=== PATIENT | female | born 1980 | race Caucasian/White ===

== ENCOUNTER 2016-09-11 14:41 | Emergency (ER) | payer OTHER ==
[2016-09-11 14:54] VITALS: BP 162/83; PULSE 79; O2SAT 99
[2016-09-11] MEDS ORDERED: Sodium Chloride 0.9% 1000 ML 1,000 ML IV STA (14:59)
[2016-09-11] MEDS ORDERED: Phenergan 25 MG INJ IV ONE (14:59)
--- NOTE | 2016-09-11 15:03 | ERPHSYRPT ---
- History of Present Illness Time Seen by Provider: 09/11/16 14:55 Historian: patient Exam Limitations: no limitations Patient Subjective Stated Complaint: upper abd pain started last night. today has vomited four times and states there is blood in it. hx gb problems Triage Nursing Assessment: ambulated to room per self. skin w/d, pale. resp easy. holding mid abd. abd soft, tender. normal bowel sounds. Physician History: 36-year-old white female arrives with complaint of epigastric pain symptoms since last night positive vomiting no diarrhea. Past medical history includes anxiety. Past surgical history includes tubal ligation. Social history patient is a smoker has a history of illicit substance abuse in the past, Timing/Duration: yesterday Activities at Onset: none Quality: cramping Abdominal Pain Onset Location: epigastric Pain Radiation: back Severity of Pain-Max: moderate Severity of Pain-Current: moderate Modifying Factors: Improves With: nothing Associated Symptoms: back (pain radiates to her back) Previous symptoms: no prior history Allergies/Adverse Reactions: No Known Drug Allergies Allergy (Verified 09/11/16 14:54) Hx Tetanus, Diphtheria Vaccination/Date Given: Yes Hx Influenza Vaccination/Date Given: No Hx Pneumococcal Vaccination/Date Given: No - Review of Systems Constitutional: No Fever, No Chills Eyes: No Symptoms Ears, Nose, & Throat: No Symptoms Respiratory: No Cough, No Dyspnea Cardiac: No Chest Pain, No Edema, No Syncope Abdominal/Gastrointestinal: Abdominal Pain, Nausea, Vomiting, Hematemesis, No Diarrhea, No Constipation, No Hematochezia, No Melena, No Dysphagia, No Appetite Changes Genitourinary Symptoms: No Dysuria Musculoskeletal: No Back Pain, No Neck Pain Skin: No Rash Neurological: No Dizziness, No Focal Weakness, No Sensory Changes Psychological: No Symptoms Endocrine: No Symptoms All Other Systems: Reviewed and Negative - Past Medical History Pertinent Past Medical History: Yes Neurological History: No Pertinent History ENT History: No Pertinent History Cardiac History: No Pertinent History Respiratory History: No Pertinent History Endocrine Medical History: No Pertinent History Musculoskeletal History: No Pertinent History GI Medical History: No Pertinent History History: No Pertinent History Psycho-Social History: Anxiety - Past Surgical History Past Surgical History: Yes Female Surgical History: Tubal Ligation - Social History Smoking Status: Current every day smoker How long have you smoked: 21 Exposure to second hand smoke: No Drug Use: none Patient Lives Alone: No - Female History Hx Last Menstrual Period: one week ago Hx Now: No - Nursing Vital Signs Nursing Vital Signs: Initial Vital Signs Temperature 97.5 F Temperature Source Oral Pulse Rate 79 Respiratory Rate 16 Blood Pressure [Right Arm] 162/83 Pain Intensity 8 - Physical Exam General Appearance: mild distress Eye Exam: PERRL/EOMI, eyes nml inspection Ears, Nose, Throat Exam: normal ENT inspection, pharynx normal, moist mucous membranes Neck Exam: normal inspection, non-tender, supple, full range of motion Respiratory Exam: normal breath sounds, lungs clear, No respiratory distress Cardiovascular Exam: regular rate/rhythm, normal heart sounds Gastrointestinal/Abdomen Exam: soft, normal bowel sounds, tenderness ( epigastric tenderness), No distention, No mass, No guarding, No ecchymosis, No pulsatile mass, No rebound, No hernia, No hepatomegaly, No organomegaly, No splenomegaly, No bruit Back Exam: normal inspection, normal range of motion, No CVA tenderness, No vertebral tenderness Extremity Exam: normal inspection, normal range of motion, pelvis stable Neurologic Exam: alert, oriented x 3, cooperative, normal mood/affect, nml cerebellar function, sensation nml, No motor deficits Skin Exam: normal color, warm, dry SpO2 Interpretation: normal (99%) SpO2: 99 Oxygen Delivery: Room Air Ordered Tests: Active Orders 24 hr Category Date Time Status IV Insertion STAT Care 09/11/16 14:59 Active AMYLASE Stat Lab 09/11/16 15:47 Completed CBC W DIFF Stat Lab 09/11/16 15:47 Completed CMP Stat Lab 09/11/16 15:47 Completed HCG QUALITATIVE,SERUM Stat Lab 09/11/16 15:47 Completed LIPASE Stat Lab 09/11/16 15:47 Completed UA W/ MICROSCOPIC Stat Lab 09/11/16 16:15 Completed Medication Summary Discontinued Medications Generic Name Dose Route Start Last Admin Trade Name Freq PRN Reason Stop Dose Admin Sodium Chloride 1,000 mls @ 999 mls/hr 09/11/16 14:59 09/11/16 15:25 Sodium Chloride 0.9% 1000 Ml IV 09/11/16 15:59 999 mls/hr .Q1H1M STA Administration Sodium Chloride Confirm 09/11/16 15:26 Sodium Chloride 0.9% 1000 Ml Administered 09/11/16 15:27 Dose 1,000 mls @ ud .ROUTE .STK-MED ONE Ketorolac Tromethamine 30 mg 09/11/16 16:37 09/11/16 16:38 Toradol 30 Mg Injection IV 09/11/16 16:38 30 mg STAT ONE Administration Ketorolac Tromethamine Confirm 09/11/16 16:37 Toradol 30 Mg Injection Administered 09/11/16 16:38 Dose 30 mg .ROUTE .STK-MED ONE Pantoprazole Sodium 40 mg 09/11/16 16:27 09/11/16 16:32 Protonix 40 Mg Iv IV 09/11/16 16:28 40 mg STAT ONE Administration Pantoprazole Sodium Confirm 09/11/16 16:30 Protonix 40 Mg Iv Administered 09/11/16 16:31 Dose 40 mg IV .STK-MED ONE Promethazine HCl 12.5 mg 09/11/16 14:59 09/11/16 15:31 Phenergan 25 Mg Inj IV 09/11/16 15:00 12.5 mg STAT ONE Administration Promethazine HCl Confirm 09/11/16 15:25 Phenergan 25 Mg Inj Administered 09/11/16 15:26 Dose 25 mg .ROUTE .STK-MED ONE Lab/Rad Data: Laboratory Result Diagrams 09/11/16 15:47 09/11/16 15:47 Laboratory Results 09/11/16 09/11/16 09/11/16 Range/Units 16:15 15:47 15:47 WBC (4.0-10.5) K/mm3 RBC (4.1-5.4) M/mm3 Hgb (12.0-16.0) gm/dl Hct (35-47) % MCV (78-100) fl MCH (26-32) pg MCHC (32-36) g/dl RDW (11.5-14.0) % Plt Count (150-450) K/mm3 MPV (6-9.5) fl Gran % (36.0-66.0) % Lymphocytes % (24.0-44.0) % Monocytes % (0.0-12.0) % Eosinophils % (0.00-5.0) % Basophils % (0.0-0.4) % Basophils # (0-0.4) Sodium 144 (136-145) mEq/L Potassium 4.1 (3.5-5.1) mEq/L Chloride 107 (98-107) mEq/L Carbon Dioxide 24.8 (21-32) mEq/L Anion Gap 16.6 H (5-15) MEQ/L BUN 11 (9-20) mg/dL Creatinine 0.73 (0.55-1.30) mg/dl Estimated GFR > 60 ML/MIN Glucose 90 (70-110) MG/DL Calcium 8.7 (8.5-10.1) mg/dL Total Bilirubin 0.3 (0.2-1.0) mg/dL AST 79 H (15-37) U/L ALT 146 H (12-78) U/L Alkaline Phosphatase 117 H (46-116) U/L Serum Total Protein 7.5 (6.4-8.2) gm/dL Albumin 3.3 L (3.4-5.0) g/dL Amylase 65 (25-115) U/L Lipase 76 (73-393) U/L Serum , Qual NEGATIVE (Negative) Ur Collection Type VOID Urine Color YELLOW (YELLOW) Urine Appearance CLEAR (CLEAR) Urine pH 7.5 (5-6) Ur Specific [place] 1.015 (1.005-1.025) Urine Protein NEGATIVE (Negative) Urine Glucose (UA) NEGATIVE (NEGATIVE) mg/dL Urine Ketones NEGATIVE (NEGATIVE) Urine Nitrite NEGATIVE (NEGATIVE) Urine Bilirubin NEGATIVE (NEGATIVE) Urine Urobilinogen 0.2 (0-1) mg/dL Urine WBC (Auto) TRACE (NEGATIVE) Urine RBC (Auto) NEGATIVE (0-5) Jordi/ul Urine Microscopic WBC 0-2 (0-5) /HPF Ur Epithelial Cells RARE (FEW) /HPF Urine Bacteria RARE (NEGATIVE) /HPF Specimen Received 09/11/16 1615 09/11/16 Range/Units 15:47 WBC 9.2 (4.0-10.5) K/mm3 RBC 4.32 (4.1-5.4) M/mm3 Hgb 11.1 L (12.0-16.0) gm/dl Hct 35.4 (35-47) % MCV 81.9 (78-100) fl MCH 25.6 L (26-32) pg MCHC 31.4 L (32-36) g/dl RDW 15.8 H (11.5-14.0) % Plt Count 291 (150-450) K/mm3 MPV 8.9 (6-9.5) fl Gran % 69.7 H (36.0-66.0) % Lymphocytes % 20.2 L (24.0-44.0) % Monocytes % 8.7 (0.0-12.0) % Eosinophils % 1.2 (0.00-5.0) % Basophils % 0.2 (0.0-0.4) % Basophils # 0.02 (0-0.4) Sodium (136-145) mEq/L Potassium (3.5-5.1) mEq/L Chloride (98-107) mEq/L Carbon Dioxide (21-32) mEq/L Anion Gap (5-15) MEQ/L BUN (9-20) mg/dL Creatinine (0.55-1.30) mg/dl Estimated GFR ML/MIN Glucose (70-110) MG/DL Calcium (8.5-10.1) mg/dL Total Bilirubin (0.2-1.0) mg/dL AST (15-37) U/L ALT (12-78) U/L Alkaline Phosphatase (46-116) U/L Serum Total Protein (6.4-8.2) gm/dL Albumin (3.4-5.0) g/dL Amylase (25-115) U/L Lipase (73-393) U/L Serum , Qual (Negative) Ur Collection Type Urine Color (YELLOW) Urine Appearance (CLEAR) Urine pH (5-6) Ur Specific [place] (1.005-1.025) Urine Protein (Negative) Urine Glucose (UA) (NEGATIVE) mg/dL Urine Ketones (NEGATIVE) Urine Nitrite (NEGATIVE) Urine Bilirubin (NEGATIVE) Urine Urobilinogen (0-1) mg/dL Urine WBC (Auto) (NEGATIVE) Urine RBC (Auto) (0-5) Jordi/ul Urine Microscopic WBC (0-5) /HPF Ur Epithelial Cells (FEW) /HPF Urine Bacteria (NEGATIVE) /HPF Specimen Received - Progress Progress: improved Progress Note: 09/11/16 16:28 Patient with mild elevation of liver enzymes. Other labs are essentially normal patient does not want Toradol nor does she want narcotic analgesia. I have given the patient IV normal saline as well as Phenergan. Will give patient Protonix Will plan to discharge patient. With prescription for Prilosec, Phenergan. Patient did have mild elevation of liver enzymes. . - Departure Time of Disposition: 16:53 Departure Disposition: Home Clinical Impression: Gastroenteritis, mild elevation of liver enzymes Abdominal pain Qualifiers: Abdominal location: epigastric Qualified Code(s): R10.13 - Epigastric pain Condition: Fair Critical Care Time: No Referrals: DOCTOR,NO FAMILY [Primary Care Provider] - Additional Instructions: Return home. Plenty of fluids, clear fluids only 24-48 hours if abdominal pain. Prilosec 20 mg orally daily 7 days. Tylenol every 4 hours as needed for pain. Phenergan 25 mg one orally every 4-6 hours as needed for pain or nausea. Follow-up with the intermediate doctor. Return for acute distress or for severe symptoms. Prescriptions: Omeprazole 20 MG [Prilosec 20 mg] 20 mg PO DAILY #7 capsule. Promethazine HCl 25 mg [Phenergan 25 mg] 25 mg PO Q4-6HPRN PRN #12 tablet PRN Reason: nausea and vomiting
[2016-09-11] MEDS ORDERED: Phenergan 25 MG INJ ONE (15:25)
[2016-09-11] MEDS ORDERED: Sodium Chloride 0.9% 1000 ML 1,000 ML ONE (15:26)
[2016-09-11 15:51] LABS: BASOPHIL % 0.2 % (0.0-0.4); Eosinophil % 1.2 % (0.00-5.0); Granulocytes % 69.7 % (36.0-66.0); Lymphocytes % 20.2 % (24.0-44.0); Mean Cell Volume 81.9 fl (78-100); Mean Platelet Volume 8.9 fl (6-9.5); Monocytes % 8.7 % (0.0-12.0); Platelet Count 291 K/mm3 (150-450); Red Blood Count 4.32 M/mm3 (4.1-5.4); Red Cell Distribution Width 15.8 % (11.5-14.0); White Blood Count 9.2 K/mm3 (4.0-10.5)
[2016-09-11 15:54] LABS: Mean Corpuscular Hemoglobin 25.6 pg (26-32)
[2016-09-11 16:11] LABS: ALBUMIN 3.3 g/dL (3.4-5.0); ALKALINE PHOSPHATASE 117 U/L (46-116); ANION GAP 16.6 MEQ/L (5-15); BILIRUBIN,TOTAL 0.3 mg/dL (0.2-1.0); BLOOD UREA NITROGEN 11 mg/dL (9-20); CHLORIDE 107 mEq/L (98-107); Carbon Dioxide 24.8 mEq/L (21-32); Glucose 90 MG/DL (70-110); LIPASE 76 U/L (73-393); Potassium 4.1 mEq/L (3.5-5.1); SGOT/AST 79 U/L (15-37); SGPT/ALT 146 U/L (12-78); SODIUM 144 mEq/L (136-145); Total Protein 7.5 gm/dL (6.4-8.2)
[2016-09-11] MEDS ORDERED: PROTONIX 40 MG IV IV ONE ×2 (16:27→16:30)
[2016-09-11 16:34] LABS: Collection Type VOID
[2016-09-11 16:35] LABS: Bacteria RARE /HPF (NEGATIVE); COMPLETE URINE MICROSCOPIC? YES; Epithelial Cells RARE /HPF (FEW); Ph 7.5 (5-6); WBC 0-2 /HPF (0-5)
[2016-09-11] MEDS ORDERED: TORAdol 30 mg Injection ONE (16:37)
[2016-09-11] MEDS ORDERED: TORAdol 30 mg Injection IV ONE (16:37)
== END 2016-09-11 17:41 | disposition home or self-care (01) ==
LOC: ED 14:41
DX: K52.9 Noninfective gastroenteritis and colitis, unspecified (principal); R74.8 Abnormal levels of other serum enzymes; R10.13 Epigastric pain
CPT/HCPCS: 36000; 36415; 80053; 81000; 82150; 83690; 84703; 85025; 96360; 96375; 99284; J1885; J2550

== ENCOUNTER 2016-11-21 19:21 | Emergency (ER) | payer OTHER ==
[2016-11-21] MEDS ORDERED: Sodium Chloride 0.9% 1000 ML 1,000 ML IV STA (19:36)
[2016-11-21 19:40] VITALS: BP 152/70; PULSE 100; O2SAT 98
--- NOTE | 2016-11-21 19:46 | ERPHSYRPT ---
- History of Present Illness Time Seen by Provider: 11/21/16 19:30 Source: patient Exam Limitations: clinical condition Physician History: PATIENT WITH HISTORY OF PSEUDOSEIZURES, AFTER DRINKNG ALCOHOL TODAY, FELL INTO HER DRIVEWAY, QUESTIONAL SEIZURES PER BYSTANDERS. PATIENT COMPLAINS OF HEADACHE , UNSURE OF LOSS OF CONSCIOUSNESS. DENIES NECK PAIN, NUMBNESS, TINGLING OR WEAKNESS IN EXTREMITIES. Occurred: just prior to arrival Reason for Fall: lost balance (AFTER DRINKING ALCOHOL) Injuries/Pain Location: head Loss of Consciousness: unsure Quality: aching Severity of Pain-Max: moderate Severity of Pain-Current: moderate Modifying Factors: Improves With: movement Associated Symptoms (Fall): other (HEADACHE) Allergies/Adverse Reactions: No Known Drug Allergies Allergy (Verified 11/21/16 19:56) Hx Tetanus, Diphtheria Vaccination/Date Given: Yes Hx Influenza Vaccination/Date Given: No Hx Pneumococcal Vaccination/Date Given: No - Review of Systems Constitutional: No Fever, No Chills Eyes: No Symptoms Ears, Nose, & Throat: No Symptoms Respiratory: No Symptoms, No Cough, No Dyspnea Cardiac: No Symptoms, No Chest Pain, No Edema, No Syncope Abdominal/Gastrointestinal: No Symptoms, No Abdominal Pain, No Nausea, No Vomiting, No Diarrhea Genitourinary Symptoms: No Symptoms, No Dysuria Musculoskeletal: No Symptoms, No Back Pain, No Neck Pain Skin: No Rash Neurological: Headache, No Dizziness, No Focal Weakness, No Sensory Changes Psychological: No Symptoms Endocrine: No Symptoms All Other Systems: Reviewed and Negative - Past Medical History Pertinent Past Medical History: Yes Neurological History: No Pertinent History ENT History: No Pertinent History Cardiac History: No Pertinent History Respiratory History: No Pertinent History Endocrine Medical History: No Pertinent History Musculoskeletal History: No Pertinent History GI Medical History: No Pertinent History History: No Pertinent History Psycho-Social History: Anxiety - Past Surgical History Past Surgical History: Yes Female Surgical History: Tubal Ligation - Social History Smoking Status: Current every day smoker How long have you smoked: 21 Exposure to second hand smoke: No Drug Use: none Patient Lives Alone: No - Female History Hx Now: No - Nursing Vital Signs Nursing Vital Signs: Initial Vital Signs Temperature 98 F Temperature Source Oral Pulse Rate 100 Respiratory Rate 20 Blood Pressure [] 152/70 Pain Intensity 2 - Shanna Coma Score Best Eye Response (Shanna): (4) open spontaneously Best Verbal Response ([place]): (5) oriented Best Motor Response ([place]): (6) obeys commands [place] Total: 15 - Physical Exam General Appearance: no apparent distress, other (STRONG ODOR OF ALCOHOL ) Eye Exam: PERRL/EOMI ENT Exam: airway nml Neck Exam: mid-line tenderness (A RIGID CERVICAL COLLAR APPLIED UPON ARRIVAL TO EMERGENCY) Respiratory/Chest Exam: normal breath sounds, No chest tenderness, No respiratory distress Cardiovascular Exam: normal heart sounds, regular rate/rhythm Gastrointestinal Exam: soft, No tenderness, No distention, No guarding, No ecchymosis Back Exam: normal inspection, normal range of motion, No vertebral tenderness Peripheral Pulses: carotid (R): 2+, carotid (L): 2+, femoral (R): 2+, femoral (L ): 2+, dorsalis-pedis (R): 2+, dorsalis-pedis (L): 2+ Neurologic Exam: alert, oriented x 3 Skin Exam: normal color SpO2 Interpretation: normal SpO2: 98 Oxygen Delivery: Room Air - CT Exams Head CT Interpretation: Tele-radiologist Report, No/Intracranial Hemorrhag Cervical Spine CT Interpretation: Tele-radiologist Report, No Fracture, No Subluxation Ordered Tests: Active Orders 24 hr Category Date Time Status EKG-ER Only STAT Care 11/21/16 19:39 Active CERVICAL SPINE WO CONTRAST [CT] Stat Exams 11/21/16 19:33 Taken HEAD WITHOUT CONTRAST [CT] Stat Exams 11/21/16 19:33 Taken CBC W DIFF Stat Lab 11/21/16 20:30 Completed CMP Stat Lab 11/21/16 20:30 Completed Ethyl Alcohol,Urine Stat Lab 11/21/16 19:55 Completed Manual Differential NC Stat Lab 11/21/16 20:30 Completed UA W/RFX UR CULTURE Stat Lab 11/21/16 19:55 Completed Urine Triage Profile Stat Lab 11/21/16 19:55 Completed Medication Summary Generic Name Dose Route Start Last Admin Trade Name Freq PRN Reason Stop Dose Admin Sodium Chloride 1,000 mls @ 500 mls/hr 11/21/16 19:36 11/21/16 19:54 Sodium Chloride 0.9% 1000 Ml IV 11/21/16 21:35 500 mls/hr .Q2H STA Administration Discontinued Medications Generic Name Dose Route Start Last Admin Trade Name Freq PRN Reason Stop Dose Admin Sodium Chloride Confirm 11/21/16 19:51 Sodium Chloride 0.9% 1000 Ml Administered 11/21/16 19:52 Dose 1,000 mls @ .ROUTE [facility] ONE Lab/Rad Data: Laboratory Result Diagrams 11/21/16 20:30 11/21/16 20:30 Laboratory Results 11/21/16 11/21/16 11/21/16 Range/Units 20:30 20:30 19:55 WBC 9.2 (4.0-10.5) K/mm3 RBC 4.28 (4.1-5.4) M/mm3 Hgb 10.8 L (12.0-16.0) gm/dl Hct 35.0 (35-47) % MCV 81.8 (78-100) fl MCH 25.2 L (26-32) pg MCHC 30.9 L (32-36) g/dl RDW 17.6 H (11.5-14.0) % Plt Count 327 (150-450) K/mm3 MPV 9.5 (6-9.5) fl Sodium 146 H (136-145) mEq/L Potassium 3.5 (3.5-5.1) mEq/L Chloride 111 H (98-107) mEq/L Carbon Dioxide 22.1 (21-32) mEq/L Anion Gap 16.0 H (5-15) MEQ/L BUN 14 (9-20) mg/dL Creatinine 0.81 (0.55-1.30) mg/dl Estimated GFR > 60 ML/MIN Glucose 116 H (70-110) MG/DL Calcium 8.4 L (8.5-10.1) mg/dL Total Bilirubin 0.30 (0.2-1.0) mg/dL AST 60 H (15-37) U/L ALT 96 H (12-78) U/L Alkaline Phosphatase 113 (46-116) U/L Serum Total Protein 7.4 (6.4-8.2) gm/dL Albumin 3.2 L (3.4-5.0) g/dL Ur Collection Type Urine Color (YELLOW) Urine Appearance (CLEAR) Urine pH 6.5 (5-6) Ur Specific [place] (1.005-1.025) Urine Protein (Negative) Urine Glucose (UA) (NEGATIVE) mg/dL Urine Ketones (NEGATIVE) Urine Nitrite (NEGATIVE) Urine Bilirubin (NEGATIVE) Urine Urobilinogen (0-1) mg/dL Urine WBC (Auto) (NEGATIVE) Urine RBC (Auto) (0-5) Jordi/ul Urine Opiates Level (NEGATIVE) Ur Methadone (NEGATIVE) Urine Barbiturates (NEGATIVE) Ur Phencyclidine (PCP) (NEGATIVE) Urine Amphetamine (NEGATIVE) U Benzodiazepine Level (NEGATIVE) Urine Cocaine (NEGATIVE) Urine Marijuana (THC) (NEGATIVE) Urine Ethyl Alcohol 164 H (0.00-20) mg/dl Specimen Received 11/21/16 11/21/16 Range/Units 19:55 19:55 WBC (4.0-10.5) K/mm3 RBC (4.1-5.4) M/mm3 Hgb (12.0-16.0) gm/dl Hct (35-47) % MCV (78-100) fl MCH (26-32) pg MCHC (32-36) g/dl RDW (11.5-14.0) % Plt Count (150-450) K/mm3 MPV (6-9.5) fl Sodium (136-145) mEq/L Potassium (3.5-5.1) mEq/L Chloride (98-107) mEq/L Carbon Dioxide (21-32) mEq/L Anion Gap (5-15) MEQ/L BUN (9-20) mg/dL Creatinine (0.55-1.30) mg/dl Estimated GFR ML/MIN Glucose (70-110) MG/DL Calcium (8.5-10.1) mg/dL Total Bilirubin (0.2-1.0) mg/dL AST (15-37) U/L ALT (12-78) U/L Alkaline Phosphatase (46-116) U/L Serum Total Protein (6.4-8.2) gm/dL Albumin (3.4-5.0) g/dL Ur Collection Type CLEAN CATCH Urine Color YELLOW (YELLOW) Urine Appearance CLEAR (CLEAR) Urine pH 6.5 (5-6) Ur Specific [place] 1.010 (1.005-1.025) Urine Protein NEGATIVE (Negative) Urine Glucose (UA) NEGATIVE (NEGATIVE) mg/dL Urine Ketones NEGATIVE (NEGATIVE) Urine Nitrite NEGATIVE (NEGATIVE) Urine Bilirubin NEGATIVE (NEGATIVE) Urine Urobilinogen 0.2 (0-1) mg/dL Urine WBC (Auto) NEGATIVE (NEGATIVE) Urine RBC (Auto) NEGATIVE (0-5) Jordi/ul Urine Opiates Level NEG. (NEGATIVE) Ur Methadone NEG. (NEGATIVE) Urine Barbiturates NEG. (NEGATIVE) Ur Phencyclidine (PCP) NEG. (NEGATIVE) Urine Amphetamine NEG. (NEGATIVE) U Benzodiazepine Level NEG. (NEGATIVE) Urine Cocaine NEG. (NEGATIVE) Urine Marijuana (THC) NEG. (NEGATIVE) Urine Ethyl Alcohol (0.00-20) mg/dl Specimen Received 11/21/161999 - Progress Counseled pt/family regarding: diagnosis, need for follow-up, rad results - Departure Time of Disposition: 21:10 Departure Disposition: Home Clinical Impression: SCALP CONTUSION, ACUTE CERVICAL STRAIN, ACUTE ALCOHOL INTOXICATION Condition: Stable Critical Care Time: No Referrals: DOCTOR,NO FAMILY [Primary Care Provider] - Additional Instructions: ULTRAM 50MG EVERY 4-6 HOURS NEEDED FOR PAIN. FOLLOW HEAD INJURY INSTRUCTIONS FOR 24 HOURS. Prescriptions: Tramadol HCl 50 mg [Ultram 50 mg] 50 mg PO Q4-6HPRN PRN #15 tablet PRN Reason: Pain
[2016-11-21] MEDS ORDERED: Sodium Chloride 0.9% 1000 ML 1,000 ML ONE (19:51)
[2016-11-21 20:32] LABS: ADD URINE CULTURE? NO (NO); COMPLETE URINE MICROSCOPIC? NO; Collection Type CLEAN CATCH; Ph 6.5 (5-6)
[2016-11-21 20:34] LABS: Mean Cell Volume 81.8 fl (78-100); Mean Corpuscular Hemoglobin 25.2 pg (26-32); Mean Platelet Volume 9.5 fl (6-9.5); Platelet Count 327 K/mm3 (150-450); Red Blood Count 4.28 M/mm3 (4.1-5.4); Red Cell Distribution Width 17.6 % (11.5-14.0); White Blood Count 9.2 K/mm3 (4.0-10.5)
[2016-11-21 20:56] LABS: ALBUMIN 3.2 g/dL (3.4-5.0); ALKALINE PHOSPHATASE 113 U/L (46-116); BLOOD UREA NITROGEN 14 mg/dL (9-20); CHLORIDE 111 mEq/L (98-107); Carbon Dioxide 22.1 mEq/L (21-32); Glucose 116 MG/DL (70-110); Potassium 3.5 mEq/L (3.5-5.1); SGOT/AST 60 U/L (15-37); SGPT/ALT 96 U/L (12-78); SODIUM 146 mEq/L (136-145); Total Protein 7.4 gm/dL (6.4-8.2)
[2016-11-21 21:33] LABS: Basophil 1 % (0.0-1.0); Eosinophil 3 % (0.00-3.0); Platelet Estimate NORMAL (NORMAL); Total Cells Counted 100
[2016-11-21 21:34] LABS: ANISOCYTOSIS 1+
--- NOTE | 2016-11-22 08:44 | XRAY ---
Indication: Headache. Syncope. Status post fall. Alcohol. Multiple contiguous axial images obtained through the head without contrast. Comparison: March 12, 2006. Normal-appearing brain parenchyma, ventricles, and bony calvarium. Visualized paranasal sinuses and mastoid air cells are essentially clear. Impression: No acute intracranial abnormalities. Comment: Preliminary interpretation was made by C. No discrepancy. CTDI 59.13
--- NOTE | 2016-11-22 08:50 | XRAY ---
Indication: Headache. Syncope. Status post fall. Alcohol. Multiple contiguous axial images obtained through the cervical spine. Sagittal and coronal reformatted images obtained. Comparison: None. Mild C2-C4 motion artifact. Axial images negative for acute fracture, suspicious bony lesions, or spinal canal stenosis. Minimal C5-C7 endplate spurring. Sagittal and coronal reformatted images demonstrate lordotic straightening, positional versus paraspinal spasm. Minimal C6-C7 disc space narrowing. No acute compression fracture, subluxation, or jumped facet. Normal-appearing craniocervical junction. Visualized noncontrasted soft tissues demonstrates heterogeneous enlarged left thyroid gland with hypodense cysts versus nodules, largest measuring 1.5 cm. Lung apices clear. CT head reported separately. Impression: 1. Motion artifact. 2. Negative acute fracture/subluxation. 3. Lordotic straightening, positional versus paraspinal spasm. 4. C5-C7 degenerative changes. 5. Heterogeneous enlarged left thyroid gland with cysts/nodules better evaluated with thyroid ultrasound if clinically warranted. Comment: Preliminary interpretation was made by [facility]. Degenerative changes and left thyroid findings not reported and are not critical. CTDI 96.78
== END 2016-11-21 21:26 | disposition home or self-care (01) ==
LOC: ED 19:21
DX: S00.03XA Contusion of scalp, initial encounter (principal); S16.1XXA Strain of muscle, fascia and tendon at neck level, initial encounter; F10.129 Alcohol abuse with intoxication, unspecified
CPT/HCPCS: 36415; 70450; 72125; 80053; 80307; 80320; 81002; 83986; 85025; 93005; 96360; 96361; 99284; 99285

== ENCOUNTER 2016-12-28 12:35 | Emergency (ER) | payer OTHER ==
--- NOTE | 2016-12-28 13:07 | ERPHSYRPT ---
- History of Present Illness Time Seen by Provider: 12/28/16 13:00 Source: patient Exam Limitations: no limitations Patient Subjective Stated Complaint: PT REPORTS JUMPING LAST NIGHT-PAIN BEGAN IN LEFT HEEL-WORSENING WITH TIME-DENIES NUMBNES SOR TINLGING Triage Nursing Assessment: PT PINK WARM ET [id number] OBIVOUS DEFORMITY NOTED- PT AMBULATORY TO ED ROOM Physician History: The patient is a 36-year-old female who complains of jumping off a swing last night, hurting her left foot. She took Tylenol last night but no analgesics today. It hurts to walk on it. The pain is more in her mid foot and then traveling up the back of her foot up the back of her leg. She states she had an injury to her left fore foot several years ago but doesn't know what it was. Method of Injury: fell, sports injury Occurred: yesterday Quality: throbbing Severity of Pain-Max: moderate Severity of Pain-Current: moderate Lower Extremities Pain: foot: left, ankle: left Modifying Factors: Improves With: pain medication (tylenol) Associated Symptoms: none Allergies/Adverse Reactions: tramadol Adverse Reaction (Unknown, Verified 12/28/16 12:43) "I DON'T LIKE IT" Home Medications: No Home Meds 1 [facility] UD 12/28/16 [History] Hx Tetanus, Diphtheria Vaccination/Date Given: Yes Hx Influenza Vaccination/Date Given: Yes (2015) Hx Pneumococcal Vaccination/Date Given: No Immunizations Up to Date: Yes - Review of Systems Constitutional: No Fever, No Chills Eyes: No Symptoms Ears, Nose, & Throat: No Symptoms Respiratory: No Cough, No Dyspnea Cardiac: No Chest Pain, No Edema, No Syncope Abdominal/Gastrointestinal: No Abdominal Pain, No Nausea, No Vomiting, No Diarrhea Genitourinary Symptoms: No Dysuria Musculoskeletal: Fall, Injury, No Back Pain, No Neck Pain Skin: No Rash Neurological: No Dizziness, No Focal Weakness, No Sensory Changes Psychological: No Symptoms Endocrine: No Symptoms Hematologic/Lymphatic: No Symptoms Immunological/Allergic: No Symptoms All Other Systems: Reviewed and Negative - Past Medical History Pertinent Past Medical History: Yes Neurological History: No Pertinent History ENT History: No Pertinent History Cardiac History: No Pertinent History Respiratory History: No Pertinent History Endocrine Medical History: No Pertinent History Musculoskeletal History: No Pertinent History GI Medical History: No Pertinent History History: No Pertinent History Psycho-Social History: Anxiety - Past Surgical History Past Surgical History: Yes Female Surgical History: Tubal Ligation - Social History Smoking Status: Current every day smoker How long have you smoked: 21 Exposure to second hand smoke: No Drug Use: none Patient Lives Alone: No - Female History Hx Last Menstrual Period: CURRENTLY Hx Now: No - Nursing Vital Signs Nursing Vital Signs: Initial Vital Signs Temperature 98.4 F Temperature Source Oral Pulse Rate 100 Respiratory Rate 18 Blood Pressure [] 119/84 Pain Intensity 10 - Physical Exam General Appearance: mild distress Eyes, Ears, Nose, Throat Exam: moist mucous membranes Neck Exam: non-tender, supple Cardiovascular/Respiratory Exam: chest non-tender, normal breath sounds, regular rate/rhythm, no respiratory distress Gastrointestinal/Abdominal Exam: non-tender, guarding Back Exam: normal inspection, No vertebral tenderness Hips Exam: bilateral: non-tender Legs Exam: bilateral leg: soft tissue tenderness (left lower leg) Knees Exam: bilateral knee: non-tender Ankle Exam: left ankle: ecchymosis, soft tissue tenderness Foot Exam: left foot: ecchymosis, soft tissue tenderness Neuro/Tendon Exam: normal sensation, normal motor functions Mental Status Exam: alert, oriented x 3, cooperative Skin Exam: ecchymosis SpO2 Interpretation: normal SpO2: 96 Oxygen Delivery: Room Air - Radiology Exams Left Lower Leg X-ray Interpretation: Interpreted by me, Negative Left Ankle X-ray Interpretation: Interpreted by me, Negative (ankle bracelet seen) Left Foot X-ray Interpretation: Interpreted by me, Negative Ordered Tests: Active Orders 24 hr Category Date Time Status Cold Application STAT Care 12/28/16 13:09 Active ANKLE (3 VIEWS) Stat Exams 12/28/16 13:09 Taken FOOT (MINIMUM 3 VIEWS) Stat Exams 12/28/16 13:10 Taken LOWER LEG Stat Exams 12/28/16 13:10 Taken Medication Summary Discontinued Medications Generic Name Dose Route Start Last Admin Trade Name Bert PRN Reason Stop Dose Admin Ketorolac Tromethamine 60 mg 12/28/16 13:09 12/28/16 13:19 Toradol 30 Mg Injection IM 12/28/16 13:10 60 mg STAT ONE Administration Ketorolac Tromethamine Confirm 12/28/16 13:15 Toradol 30 Mg Injection Administered 12/28/16 13:16 Dose 60 mg .ROUTE .STK-MED ONE - Progress Progress: improved Counseled pt/family regarding: rad results - Departure Time of Disposition: 14:30 Departure Disposition: Home Clinical Impression: Contusion of left foot Condition: Stable Critical Care Time: No Additional Instructions: You have a contusion of your left foot with surrounding bruising that is causing the pain. You were given Toradol 60 mg IM in the ER. Continue to ice the area for 10-15 minutes at a time for 2 or 3 times a day for the next 2 or 3 days. Take naproxen 500 mg twice a day as needed. Follow-up on Friday if the condition has not improved. Prescriptions: Naproxen 500 mg PO BID PRN #30 tablet.
[2016-12-28] MEDS ORDERED: TORAdol 30 mg Injection IM ONE (13:09)
[2016-12-28] MEDS ORDERED: TORAdol 30 mg Injection ONE (13:15)
[2016-12-28 14:38] VITALS: BP 121/54; PULSE 93; O2SAT 99
--- NOTE | 2016-12-28 21:51 | XRAY ---
Indication: Pain following jumping injury. Comparison: None 2 views of the left lower leg obtained. No bony, articular, or soft tissue abnormalities.
--- NOTE | 2016-12-28 21:51 | XRAY ---
Indication: Pain following jumping injury. Comparison: None 3 views of the left ankle demonstrates normal bones, articulations, and soft tissues.
--- NOTE | 2016-12-28 21:51 | XRAY ---
Indication: Pain following jumping injury. Comparison: None 3 nonweightbearing views of the left foot obtained. No bony, articular, or soft tissue abnormalities.
== END 2016-12-28 14:38 | disposition home or self-care (01) ==
LOC: ED 12:35
DX: S90.32XA Contusion of left foot, initial encounter (principal); W09.1XXA Fall from playground swing, initial encounter
CPT/HCPCS: 73590; 73610; 73630; 96372; 99284; J1885

== ENCOUNTER 2018-01-10 14:16 | Emergency (ER) | payer OTHER ==
[2018-01-10 14:23] VITALS: BP 118/67; PULSE 88; O2SAT 99
--- NOTE | 2018-01-10 14:30 | ERPHSYRPT ---
- History of Present Illness Time Seen by Provider: 01/10/18 14:25 Source: patient Exam Limitations: no limitations Physician History: The patient is a 37-year-old female complaining of a sore throat that has been worsening over the past 3 days. She denies nausea, vomiting, or diarrhea. She denies cough. She thinks she may have had an on and off fever. Timing/Duration: gradual onset, days (3) Severity: moderate ENT Location: throat Prearrival Treatment: over the counter meds (tylenol) Modifying Factors: Improves With: activity Associated Symptoms: sore throat, difficulty swallowing Allergies/Adverse Reactions: tramadol Adverse Reaction (Unknown, Verified 12/28/16 12:43) "I DON'T LIKE IT" Home Medications: No Home Meds [No Home Meds] 1 [facility] ANA 12/28/16 [History] Hx Tetanus, Diphtheria Vaccination/Date Given: Yes Hx Influenza Vaccination/Date Given: Yes (2015) Hx Pneumococcal Vaccination/Date Given: No - Review of Systems Constitutional: No Fever, No Chills Eyes: No Symptoms Ears, Nose, & Throat: Throat Pain, Painful Swallowing Respiratory: No Cough, No Dyspnea Cardiac: No Chest Pain, No Edema, No Syncope Abdominal/Gastrointestinal: No Abdominal Pain, No Nausea, No Vomiting, No Diarrhea Genitourinary Symptoms: No Dysuria Musculoskeletal: No Back Pain, No Neck Pain Skin: No Rash Neurological: No Dizziness, No Focal Weakness, No Sensory Changes Psychological: No Symptoms Endocrine: No Symptoms Hematologic/Lymphatic: No Symptoms Immunological/Allergic: No Symptoms All Other Systems: Reviewed and Negative - Past Medical History Pertinent Past Medical History: Yes Neurological History: No Pertinent History ENT History: No Pertinent History Cardiac History: No Pertinent History Respiratory History: No Pertinent History Endocrine Medical History: No Pertinent History Musculoskeletal History: No Pertinent History GI Medical History: No Pertinent History History: No Pertinent History Psycho-Social History: Anxiety - Past Surgical History Past Surgical History: Yes Female Surgical History: Tubal Ligation - Social History Smoking Status: Current every day smoker How long have you smoked: 21 Exposure to second hand smoke: No Drug Use: none Patient Lives Alone: No - Nursing Vital Signs Nursing Vital Signs: Initial Vital Signs Temperature 98.6 F 01/10/18 14:22 Pulse Rate 88 01/10/18 14:22 Respiratory Rate 18 01/10/18 14:22 Blood Pressure 118/67 01/10/18 14:22 O2 Sat by Pulse Oximetry 99 01/10/18 14:22 Pain Scale Pain Intensity 7 - Physical Exam General Appearance: no apparent distress, alert Eye Exam: bilateral eye: PERRL, EOMI Ear Exam: bilateral ear: auricle normal Nasal Exam: normal inspection Throat Exam: tonsillar swelling Neck Exam: supple Cardiovascular/Respiratory Exam: normal breath sounds, regular rate/rhythm Abdominal Exam: non-tender, soft Neurologic Exam: alert, oriented x 3, sensation nml, No motor deficits Skin Exam: normal color, warm, dry SpO2 Interpretation: normal SpO2: 99 Oxygen Delivery: Room Air Lab/Rad Data: Laboratory Results 01/10/18 Range/Units 14:30 Group A Strep Antibody NEGATIVE (NEGATIVE) - Progress Progress: unchanged Counseled pt/family regarding: lab results, diagnosis - Departure Time of Disposition: 15:17 Departure Disposition: Home Clinical Impression: Pharyngitis Condition: Stable Critical Care Time: No Referrals: DOCTOR,NO FAMILY [Primary Care Provider] - Additional Instructions: You have pharyngitis. You were given Toradol 60 mg by IM in the ER for pain relief. Continue to take Tylenol 1000 mg and ibuprofen 800 mg every 8 hours as needed. You may also gargle with warm salt water as needed. Follow-up as needed.
[2018-01-10] MEDS ORDERED: TORAdol 30 mg Injection IM ONE (15:19)
[2018-01-10] MEDS ORDERED: TORAdol 30 mg Injection ONE (15:26)
== END 2018-01-10 15:40 | disposition home or self-care (01) ==
LOC: ED 14:16
DX: J02.9 Acute pharyngitis, unspecified (principal)
CPT/HCPCS: 87651; 96372; 99284; J1885

== ENCOUNTER 2019-09-11 15:29 | Emergency (ER) | payer OTHER ==
[2019-09-11] MEDS ORDERED: Sodium Chloride 0.9% 1000 ML 1,000 ML IV STA (16:07)
[2019-09-11] MEDS ORDERED: Zofran 4 MG/2 ML VIAL IV ONE (16:07)
[2019-09-11] MEDS ORDERED: BABY ASPIRIN 81 MG CHEW PO ONE (16:09)
[2019-09-11] MEDS ORDERED: Nitrostat 0.4 MG (ED) SL ONE ×2 (16:09→16:16)
--- NOTE | 2019-09-11 16:11 | ERPHSYRPT ---
- History of Present Illness Time Seen by Provider: 09/11/19 15:57 Historian: patient Exam Limitations: no limitations Patient Subjective Stated Complaint: Pt began having sudden onset medial chest pain that radiates to her left shoulder, neck and back approx 1 hour ago, dry heaved prior to coming to the ER Triage Nursing Assessment: Pt brought to the ER by her boyfriend, rates chest pain 10/10, has had the flu since Friday, vitals wnl, lungs clear, heart sounds normal, no edema, bowel sounds heard in all 4 quadrants, hasn't ate for 2 days except a couple of crackers yesterday, thinks that she has been drinking enough fluids Physician History: Five days ago pt vomited once without blood. Two days ago pt started with cough , subjective fever, diaphoresis, diarrhea without blood, generalized aches and chills. About 90 minutes ago pt started with severe epigastric pain radiating to the left chest, left shoulder and left side of mid-back. Pt states 5 days ago she was diagnosed with influenza. Aspirin Treatment Today: 81 mg x 4, provided by ED Allergies/Adverse Reactions: tramadol Adverse Reaction (Unknown, Verified 09/11/19 15:49) "I DON'T LIKE IT" Home Medications: No Home Meds [No Home Meds] [facility] 12/28/16 [History] Hx Tetanus, Diphtheria Vaccination/Date Given: Yes Hx Influenza Vaccination/Date Given: Yes (2015) Hx Pneumococcal Vaccination/Date Given: No - Review of Systems Constitutional: Fever, Chills, Other (diaphoresis) Respiratory: Cough Cardiac: Chest Pain Abdominal/Gastrointestinal: Abdominal Pain, Vomiting, Diarrhea Musculoskeletal: Arthralgias Skin: No Rash All Other Systems: Reviewed and Negative - Past Medical History Pertinent Past Medical History: Yes Neurological History: No Pertinent History ENT History: No Pertinent History Cardiac History: Arrhythmia Respiratory History: No Pertinent History Endocrine Medical History: No Pertinent History Musculoskeletal History: No Pertinent History GI Medical History: No Pertinent History History: No Pertinent History Psycho-Social History: Anxiety - Past Surgical History Past Surgical History: Yes Female Surgical History: Tubal Ligation - Social History Smoking Status: Current every day smoker How long have you smoked: 21 Exposure to second hand smoke: Yes Drug Use: none Patient Lives Alone: No - Female History Hx Now: No (tubal) - Nursing Vital Signs Nursing Vital Signs: Initial Vital Signs Temperature 98.2 F 09/11/19 15:37 Pulse Rate 82 09/11/19 15:37 Respiratory Rate 14 09/11/19 15:37 Blood Pressure 127/88 09/11/19 15:37 O2 Sat by Pulse Oximetry 97 09/11/19 15:37 Pain Scale Pain Intensity 5 - Physical Exam General Appearance: alert Eye Exam: PERRL/EOMI Ears, Nose, Throat Exam: pharynx normal, moist mucous membranes Neck Exam: normal inspection Respiratory Exam: lungs clear Cardiovascular Exam: normal heart sounds Gastrointestinal/Abdomen Exam: soft, No normal bowel sounds (b.s. mildly hyperactive & normotonic.) Back Exam: normal inspection Extremity Exam: No pedal edema Neurologic Exam: alert, cooperative SpO2 Interpretation: normal SpO2: 97 O2 Delivery: Room Air - Course Nursing assessment & vital signs reviewed: Yes EKG Interpreted by Me: RATE (78), Sinus Rhythm, NORMAL AXIS, NORMAL INTERVALS - Radiology Exams Chest X-ray Interpretation: Interpreted by me (no pneumonia) Ordered Tests: Active Orders 24 hr Category Date Time Status EKG-ER Only STAT Care 09/11/19 16:07 Active ABDOMEN AND PELVIS W/0 CONTRAS [CT] Stat Exams 09/11/19 16:08 Taken CHEST 2 VIEWS (PA AND LAT) Stat Exams 09/11/19 16:08 Taken HCG QUALITATIVE,SERUM Stat Lab 09/11/19 18:10 Completed TROPONIN Q3H Lab 09/11/19 17:30 Completed TROPONIN Q3H Lab 09/11/19 19:15 Ordered TROPONIN Q3H Lab 09/11/19 22:15 Ordered TROPONIN Q3H Lab 09/12/19 01:15 Ordered TROPONIN Q3H Lab 09/12/19 04:15 Ordered UA W/RFX UR CULTURE Stat Lab 09/11/19 19:58 Completed Urine Triage Profile Stat Lab 09/11/19 19:58 Received Medication Summary Discontinued Medications Generic Name Dose Route Start Last Admin Trade Name Freq PRN Reason Stop Dose Admin Aspirin 324 mg 09/11/19 16:09 09/11/19 16:12 Baby Aspirin 81 Mg Chew PO 09/11/19 16:10 324 mg STAT ONE Administration Aspirin Confirm 09/11/19 16:16 Baby Aspirin 81 Mg Chew Administered 09/11/19 16:17 Dose 324 mg .ROUTE .STK-MED ONE Sodium Chloride 1,000 mls @ 999 mls/hr 09/11/19 16:07 09/11/19 17:10 Sodium Chloride 0.9% 1000 Ml IV 09/11/19 17:07 Not Given .Q1H1M STA Sodium Chloride Confirm 09/11/19 16:16 Sodium Chloride 0.9% 1000 Ml Administered 09/11/19 16:17 Dose 1,000 mls @ ud .ROUTE .STK-MED ONE Nitroglycerin 0.4 mg 09/11/19 16:09 09/11/19 16:13 Nitrostat 0.4 Mg (Ed) SL 09/11/19 16:10 0.4 mg STAT ONE Administration Nitroglycerin Confirm 09/11/19 16:16 Nitrostat 0.4 Mg (Ed) Administered 09/11/19 16:17 Dose 0.4 mg SL .STK-MED ONE Ondansetron HCl 4 mg 09/11/19 16:07 09/11/19 17:09 Zofran 4 Mg/2 Ml Vial IV 09/11/19 16:08 Not Given STAT ONE Ondansetron HCl Confirm 09/11/19 16:15 Zofran 4 Mg/2 Ml Vial Administered 09/11/19 16:16 Dose 4 mg .ROUTE .STK-MED ONE Lab/Rad Data: Laboratory Results 09/11/19 09/11/19 09/11/19 Range/Units 19:58 18:10 17:30 Troponin I < 0.012 (0.000-0.034) ng/mL Serum , Qual NEGATIVE (Negative) Urine Color MARCK (YELLOW) Urine Appearance CLOUDY (CLEAR) Urine pH 5.0 (5-6) Ur Specific Ch[place]key 1.031 (1.005-1.025) Urine Protein 100 (Negative) Urine Ketones TRACE (NEGATIVE) Urine Blood SMALL (0-5) Jordi/ul Urine Nitrite NEGATIVE (NEGATIVE) Urine Bilirubin SMALL (NEGATIVE) Urine Urobilinogen 4 (0-1) mg/dL Ur Leukocyte Esterase NEGATIVE (NEGATIVE) Urine WBC (Auto) 6-10 (0-5) /HPF Urine RBC (Auto) 0-2 (0-2) /HPF U Epithel Cells (Auto) RARE (FEW) /HPF Urine Bacteria (Auto) RARE (NEGATIVE) /HPF Unidentified Crystals 25-50 (NEGATIVE) /HPF Urine Mucus (Auto) MANY (NEGATIVE) /HPF Urine Culture Reflexed NO (NO) Urine Glucose NEGATIVE (NEGATIVE) mg/dL - Progress Progress: unchanged Progress Note: 09/11/19 21:34 Pt refuses iv and any further blood draws. Counseled pt/family regarding: lab results, rad results - Departure Departure Disposition: Home Clinical Impression: Chest pain, Abdominal pain, Vomiting, Diarrhea, influenza(per pt hx). Condition: Stable Critical Care Time: No Referrals: DOCTOR,NO FAMILY [Primary Care Provider] - Instructions: Atypical Chest Pain, Diarrhea and Traveler's Diarrhea, Adult (DC) Additional Instructions: Follow up with private doctor tomorrow. Prescriptions: Ondansetron ODT 4 MG [Zofran Odt 4 mg] 4 mg PO Q6H PRN PRN #10 tab.rapdis PRN Reason: Nausea/Vomiting
[2019-09-11] MEDS ORDERED: Zofran 4 MG/2 ML VIAL ONE (16:15)
[2019-09-11] MEDS ORDERED: Sodium Chloride 0.9% 1000 ML 0 ML ONE (16:16)
[2019-09-11] MEDS ORDERED: BABY ASPIRIN 81 MG CHEW ONE (16:16)
[2019-09-11 21:05] LABS: Appearance CLOUDY (CLEAR); Bacteria RARE /HPF (NEGATIVE); Bilirubin SMALL (NEGATIVE); Blood SMALL Ery/ul (0-5); Crystals Unidentified 25-50 /HPF (NEGATIVE); Epithelial Cells RARE /HPF (FEW); Glucose NEGATIVE (NEGATIVE); Ketones TRACE (NEGATIVE); Leukocyte Esterase NEGATIVE (NEGATIVE); Mucus MANY /HPF (NEGATIVE); Nitrite NEGATIVE (NEGATIVE); Protein,Urine Dip 100 (Negative); RBC 0-2 /HPF (0-2); Specific Gravity 1.031 (1.005-1.025); Urobilinogen 4 mg/dL (0-1)
[2019-09-11 21:12] VITALS: BP 102/75; PULSE 74
[2019-09-11 21:35] VITALS: O2SAT 97
[2019-09-11 21:44] LABS: Amphetamine,Urine NEGATIVE (NEGATIVE); Barbiturate,Urine NEGATIVE (NEGATIVE); Benzodiazepine,Urine NEGATIVE (NEGATIVE); Cocaine,Urine NEGATIVE (NEGATIVE); Methadone,Urine NEGATIVE (NEGATIVE); Opiate,Urine NEGATIVE (NEGATIVE); PCP,Urine NEGATIVE (NEGATIVE); THC,Urine NEGATIVE (NEGATIVE)
--- NOTE | 2019-09-12 09:54 | XRAY ---
Indication: Chest/abdomen pain. Positive influenza. Comparison: March 13, 2006. PA/lateral chest demonstrates normal heart, lungs, and bony thorax with new incidental right base calcified granuloma.
--- NOTE | 2019-09-12 09:54 | XRAY ---
Indication: Chest/upper abdomen pain. Nausea. Multiple contiguous axial images obtained through the abdomen and pelvis without contrast as ordered. Comparison: None Lung bases demonstrates right posterior gutter calcified granuloma. No infiltrate or effusion. Heart is not enlarged. Small hiatal hernia. Noncontrasted stomach and bowel loops appear nonobstructed. Normal appendix. 1.8 cm gallstone in the neck of the gallbladder. No abnormal biliary distention. Tampon in situ. Remaining liver, gallbladder, pancreas, spleen, adrenal glands, kidneys, ureters, bladder, uterus, and aorta appear unremarkable for noncontrast exam. Osseous structures intact. No ventral or inguinal hernias. Impression: 1. Gallstone in the neck of the gallbladder. Gallbladder sonogram may yield further information. 2. Incidental small hiatal hernia and right lower lobe calcified granuloma. 3. Remaining CT abdomen/pelvis without contrast exam is negative. Comment: Preliminary interpretation was made by [facility]. No critical discrepancy.
== END 2019-09-11 22:17 | disposition home or self-care (01) ==
LOC: ED 15:29
DX: R07.9 Chest pain, unspecified (principal); R10.9 Unspecified abdominal pain; R11.10 Vomiting, unspecified; R19.7 Diarrhea, unspecified
CPT/HCPCS: 36415; 71046; 74176; 80307; 81001; 81025; 84484; 93005; 99284; J2405; A9270-GY

== ENCOUNTER 2019-11-27 16:05 | Emergency (ER) | payer OTHER ==
--- NOTE | 2019-11-27 16:06 | ERPHSYRPT ---
- History of Present Illness Time Seen by Provider: 11/27/19 16:06 Source: patient Exam Limitations: no limitations Physician History: Is a 39-year-old white female who has had chronic intermittent diarrhea since 1994. Patient states in the last few days she has had worsening episodes of her diarrhea. She has had more frequent in the last 3 days. She feels dehydrated as though she is going to pass out. Patient has had no nausea or vomiting. She has crampy abdominal pain. She is able to hold down Pedialyte and oral liquid intake. Patient arrives today but refuses any intravenous line , intravenous fluids, urinalysis for laboratory work. Patient states that she needs a note to return to work. Patient does not want any antiemetic medication. Patient states that she has dealt with this for a long time and she will get over this episode. However, she needs a note to return to work tomorrow. I explained to her that she would need to sign a refusal of treatment. I offered the above work-up and outpatient medications. She was told that she would need to sign a refusal of treatment and she said she would. Timing/Duration: day(s) (2 to 3 days) Severity: moderate Character of Deficits: none Deficits: no difficulties Baseline/Normal Cognition: alert oriented x 3 Current Cognition: alert oriented x 3 Baseline Gait: walks w/o assistance Associated Symptoms: weakness Allergies/Adverse Reactions: tramadol Adverse Reaction (Unknown, Verified 11/27/19 16:36) "I DON'T LIKE IT" Home Medications: No Home Meds [No Home Meds] [facility] 12/28/16 [History] Hx Tetanus, Diphtheria Vaccination/Date Given: Yes Hx Influenza Vaccination/Date Given: Yes (2015) Hx Pneumococcal Vaccination/Date Given: No Travel Risk - International Travel Have you traveled outside of the country in past 3 weeks: No Have you or anyone close to you been diagnosed with or: No Do your reside in a community with a known COVID-19 case?: Yes If Yes where:: [facility] - Coronavirus Screening Has patient experienced Coronavirus symptoms: No - Review of Systems Constitutional: Weakness Eyes: No Symptoms Ears, Nose, & Throat: No Symptoms Respiratory: No Symptoms Cardiac: No Symptoms Abdominal/Gastrointestinal: Diarrhea Genitourinary Symptoms: No Symptoms Musculoskeletal: No Symptoms Skin: No Symptoms Neurological: No Symptoms Psychological: No Symptoms Endocrine: No Symptoms Hematologic/Lymphatic: No Symptoms Immunological/Allergic: No Symptoms All Other Systems: Reviewed and Negative - Past Medical History Pertinent Past Medical History: Yes Neurological History: No Pertinent History ENT History: No Pertinent History Cardiac History: Arrhythmia Respiratory History: No Pertinent History Endocrine Medical History: No Pertinent History Musculoskeletal History: No Pertinent History GI Medical History: No Pertinent History History: No Pertinent History Psycho-Social History: Anxiety - Past Surgical History Past Surgical History: Yes Female Surgical History: Tubal Ligation - Social History Smoking Status: Current every day smoker How long have you smoked: 21 Exposure to second hand smoke: Yes Drug Use: none Patient Lives Alone: No - Nursing Vital Signs Nursing Vital Signs: Initial Vital Signs Temperature 97.2 F 11/27/19 16:22 Pulse Rate 101 H 11/27/19 16:22 Respiratory Rate 16 11/27/19 16:22 Blood Pressure 115/69 11/27/19 16:22 O2 Sat by Pulse Oximetry 98 11/27/19 16:22 Pain Scale Pain Intensity 4 - Shanna Coma Scale Best Eye Response (Shanna): (4) open spontaneously Best Verbal Response (Shanna): (5) oriented Best Motor Response ([place]): (6) obeys commands [place] Total: 15 - Physical Exam General Appearance: no apparent distress, alert, anxiety Eye Exam: bilateral eye: normal inspection, PERRL, EOMI Ears, Nose, Throat Exam: normal ENT inspection, moist mucous membranes Neck Exam: normal inspection, non-tender, supple, full range of motion Respiratory: normal breath sounds, lungs clear, airway intact, No chest tenderness, No respiratory distress Cardiovascular: regular rate/rhythm, normal heart sounds, normal peripheral pulses Gastrointestinal: soft, normal bowel sounds, No tenderness Pelvic Exam: not done Rectal Exam: not done Back Exam: normal inspection, normal range of motion, CVA tenderness Extremity Exam: normal inspection, normal range of motion, pelvis stable Mental Status: alert, oriented x 3, 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 Follow-up with your primary care physician for persistent symptoms. Return to the emergency department for worsening symptoms. Forms: Work/School Release Form
[2019-11-27 16:35] VITALS: BP 115/69; PULSE 101; O2SAT 98
== END 2019-11-27 17:32 | disposition home or self-care (01) ==
LOC: ED 16:05
DX: R19.7 Diarrhea, unspecified (principal)
CPT/HCPCS: 99283

== ENCOUNTER 2019-12-02 13:41 | Inpatient (IN) | payer OTHER ==
[2019-12-02] MEDS ORDERED: Sodium Chloride 0.9% 1000 ML 1,000 ML IV STA (13:55)
[2019-12-02] MEDS ORDERED: Rocephin 1000 MG INJ IM ONE (13:55)
[2019-12-02] MEDS ORDERED: MORPHINE SULFATE 4 MG INJ IV ONE (13:55)
[2019-12-02] MEDS ORDERED: CLINDAMYCIN-D5W 900 MG/50 ML*** 900 MG/50 ML BAG IV STA (13:57)
[2019-12-02] MEDS ORDERED: ROCEPHIN 1 Gm-D5w 50 ml Bag** 1 G/50 ML IVPB IV ONE (13:58)
[2019-12-02] MEDS ORDERED: CLINDAMYCIN-D5W 900 MG/50 ML*** 900 MG/50 ML BAG IV ONE (14:00)
[2019-12-02] MEDS ORDERED: MORPHINE SULFATE 4 MG INJ ONE (14:00)
[2019-12-02] MEDS ORDERED: Sodium Chloride 0.9% 1000 ML 1,000 ML ONE (14:00)
[2019-12-02] MEDS ORDERED: ROCEPHIN 1 Gm-D5w 50 ml Bag** 1 G/50 ML IVPB IV STA (14:56)
[2019-12-02] MEDS ORDERED: BENADRYL 50 MG/ML IV ONE (15:04)
[2019-12-02] MEDS ORDERED: BENADRYL 50 MG/ML ONE (15:04)
[2019-12-02 15:09] LABS: Hematocrit 36.6 % (35-47); Mean Cell Volume 83.2 fl (78-100); Mean Corpuscular Hemoglobin 27.3 pg (26-32); Mean Corpuscular Hgb Concent. 32.8 g/dl (32-36); Platelet Count 294 K/mm3 (150-450); Red Cell Distribution Width 14.7 % (11.5-14.0)
[2019-12-02 15:22] LABS: White Blood Count 27.2 K/mm3 (4.0-10.5)
[2019-12-02 15:29] LABS: ALBUMIN 3.3 g/dL (3.5-5.0); ALKALINE PHOSPHATASE 114 U/L (38-126); ANION GAP 10.9 MEQ/L (5-15); BLOOD UREA NITROGEN 16 mg/dL (7-17); CHLORIDE 103 mmol/L (98-107); Calcium 8.8 mg/dL (8.4-10.2); Carbon Dioxide 25 mmol/L (22-30); Creatinine 1 0.57 mg/dL (0.52-1.04); Glucose 96 mg/dL (74-106); SGOT/AST 21 U/L (14-36); SGPT/ALT 18 U/L (0-35); SODIUM 136 mmol/L (137-145); Total Protein 6.6 g/dL (6.3-8.2)
[2019-12-02 16:24] LABS: ANISOCYTOSIS 1+; BAND 14 % (0.0-2.0); Eosinophil 1 % (0.00-3.0); Lymphocytes 6 % (24-44); Monocyte 6 % (0.0-12.0); Neutrophils 73 % (36.0-66.0); Platelet Estimate NORMAL (NORMAL); Total Cells Counted 100; Toxic Granulation 2+
--- NOTE | 2019-12-02 17:43 | XRAY ---
Exam: CT of the abdomen and pelvis with IV contrast from 12/02/2019. Total DLP: 1732.81 mGy-cm Comparison: CT of the abdomen and pelvis without IV contrast from 09/11/2019. Indication: Abscess within buttock area that wraps around to the front. Technique: Post-IV contrast axial images were obtained through the abdomen and pelvis during automated injection of 80 ML's of Isovue 370 contrast material. Reconstructed coronal and sagittal images were created and reviewed. Findings: The visualized lung bases reveals a large calcified granuloma within the right posterior lung sulcus representing no change from 09/11/2019. The liver appears of unremarkable size and uniform attenuation. No intrahepatic biliary duct distention is seen. The gallbladder is distended. There appears to be some peripheral calcium at the level of the gallbladder wall within the gallbladder neck. This was previously believed to represent a gallstone. Although it is possible that one or more of these tiny calcifications could represent a gallstone, it may reflect gallbladder wall calcification at this site. Gallbladder ultrasound on a nonemergent basis may be helpful for further evaluation. The spleen measures 12 cm in greatest transverse diameter which is towards the upper limits of normal. No splenic mass is seen. The pancreas and adrenal glands appear unremarkable. The kidneys are unremarkable size and function on delayed images. No renal mass or hydronephrosis is seen. The ureters appear of unremarkable diameter. There is no evidence of abdominal aortic aneurysm. A few shotty small nonspecific periaortic lymph nodes are seen. No abnormal retroperitoneal lymphadenopathy is seen. There is no free intraperitoneal air. There is minimal protrusion of intraperitoneal fat into the subcutaneous fat at the level of the umbilicus on midline sagittal image #118. The appendix appears normal representing no change. There appears to be some prominence of the small bowel wall within the ileum on axial images #69 through #79. This is essentially unchanged from 09/11/2019. Consider ileitis. Is there any history of Crohn's disease? The remainder of the bowel gas pattern appears nonobstructive. Some scattered stool is seen throughout the colon. I see no findings of colonic diverticulitis. The uterus is anteflexed. Both ovaries are identified. There appears to be a 1.7 cm follicle within the right ovary on axial image #78. There is no free fluid. No enlarged pelvic lymph nodes are seen. Some probable postinflammatory lymph nodes are seen within each groin, a bit more prominent on the right than left. There is increased attenuation of the subcutaneous fat within the lower posterior medial right buttock extending anteriorly along the right side of the perineum. Correlate clinically regarding cellulitis. A soft tissue mass or abscess cavity is not seen at this level. The skeleton reveals no acute fracture or aggressive bone lesion. Some scattered small anterior vertebral endplate spurs are seen within the visualized thoracolumbar spine. There is minimal vacuum phenomena within the L4-L5 and L5-S1 discs indicating early degenerative change. There is mild narrowing of the L4-L5 interspace height. Impression: 1. There is increased attenuation within the subcutaneous fat within the lower posterior medial right buttock extending anteriorly along the right side of the perineum. This is suggestive of cellulitis. A discrete soft tissue mass or abscess cavity is not seen at this time. These findings are best appreciated on the delayed axial images. 2. I again note some apparent bowel wall thickening at the level of the terminal ileum on axial images #69 through #79. This is unchanged from 09/11/2019. This could be due to ileitis/enteritis. Correlate clinically regarding Crohn's disease. 3. Subtle peripheral calcified densities are seen at or adjacent to the wall of the gallbladder neck representing no change. Although it is possible this may represent one or more tiny stones within the gallbladder neck, this could represent some minimal calcification within the gallbladder wall at the level of the gallbladder neck. Consider further evaluation with a gallbladder ultrasound. This is stable. 4. Minimal hiatal hernia is again seen. 5. No other acute process is seen within the abdomen or pelvis.
--- NOTE | 2019-12-02 17:54 | ERPHSYRPT ---
- History of Present Illness Time Seen by Provider: 12/02/19 14:00 Source: patient Exam Limitations: no limitations Patient Subjective Stated Complaint: pt has abcess to buttuck for 2 days now, no fever, Triage Nursing Assessment: pt alert, walked in, resp easy,skin w/d/p.pt has swelling and reddness from anus to labia, no drainage Physician History: Is a 39-year-old female who presents with the onset of swelling and severe pain in the right buttocks area extending from around the level of the anus anteriorly to the perineal body and onto the labial area. Been present for 3 days. She has no diabetes. She does have a history of IV drug use Timing/Duration: day(s) (3) Severity: severe Modifying Factors: Improves With: nothing Allergies/Adverse Reactions: tramadol Adverse Reaction (Unknown, Verified 12/02/19 13:58) "I DON'T LIKE IT" Home Medications: No Home Meds [No Home Meds] 1 angel ANA 12/28/16 [History] Hx Tetanus, Diphtheria Vaccination/Date Given: Yes Hx Influenza Vaccination/Date Given: Yes Hx Pneumococcal Vaccination/Date Given: No Immunizations Up to Date: Yes Travel Risk - International Travel Have you traveled outside of the country in past 3 weeks: No - Coronavirus Screening Are you exhibiting any of the following symptoms?: No Close contact with a COVID-19 positive Pt in past 14-21 Days: Yes - Review of Systems Constitutional: No Fever, No Chills Eyes: No Symptoms Ears, Nose, & Throat: No Symptoms Respiratory: No Cough, No Dyspnea Cardiac: No Chest Pain, No Edema, No Syncope Abdominal/Gastrointestinal: No Abdominal Pain, No Nausea, No Vomiting, No Diarrhea Genitourinary Symptoms: Other (Soft tissue swelling right buttocks perineum and right vaginal area), No Dysuria Musculoskeletal: No Back Pain, No Neck Pain Skin: No Rash Neurological: No Dizziness, No Focal Weakness, No Sensory Changes Psychological: No Symptoms Endocrine: No Symptoms All Other Systems: Reviewed and Negative - Past Medical History Pertinent Past Medical History: Yes Neurological History: No Pertinent History ENT History: No Pertinent History Cardiac History: Arrhythmia Respiratory History: No Pertinent History Endocrine Medical History: No Pertinent History Musculoskeletal History: No Pertinent History GI Medical History: No Pertinent History History: No Pertinent History Psycho-Social History: Anxiety - Past Surgical History Past Surgical History: Yes Female Surgical History: Tubal Ligation - Social History Smoking Status: Current every day smoker How long have you smoked: 21 Exposure to second hand smoke: Yes Drug Use: methamphetamines Patient Lives Alone: No - Female History Hx Last Menstrual Period: week ago Hx Now: No - Nursing Vital Signs Nursing Vital Signs: Initial Vital Signs Temperature 99.1 F 12/02/19 13:52 Pulse Rate 113 H 12/02/19 13:52 Respiratory Rate 18 12/02/19 13:52 Blood Pressure 116/97 12/02/19 13:52 O2 Sat by Pulse Oximetry 99 12/02/19 13:52 Pain Scale Pain Intensity 5 - Physical Exam General Appearance: moderate distress, alert Eye Exam: PERRL/EOMI, eyes nml inspection Ears, Nose, Throat Exam: normal ENT inspection, TMs normal, pharynx normal, moist mucous membranes Neck Exam: normal inspection, non-tender, supple, full range of motion Respiratory Exam: normal breath sounds, lungs clear, No respiratory distress Cardiovascular Exam: regular rate/rhythm, normal heart sounds, normal peripheral pulses Gastrointestinal/Abdomen Exam: soft, normal bowel sounds, No tenderness, No mass Pelvic Exam: mass (There is a mass in the right buttocks extending into the perineal body and the right side of the vaginal area) Back Exam: normal inspection, normal range of motion, No CVA tenderness, No vertebral tenderness Extremity Exam: normal inspection, normal range of motion, pelvis stable Neurologic Exam: alert, oriented x 3, cooperative, normal mood/affect, nml cerebellar function, nml station & gait, sensation nml, No motor deficits Skin Exam: normal color, warm, dry, No rash Lymphatic Exam: No adenopathy SpO2: 99 - Course Nursing assessment & vital signs reviewed: Yes Ordered Tests: Active Orders 24 hr Category Date Time Status IV Insertion STAT Care 12/02/19 13:55 Active ABDOMEN AND PELVIS W CONTRAST [CT] Stat Exams 12/02/19 13:58 Completed BLOOD CULTURE Stat Lab 12/02/19 15:02 Received CBC W DIFF Stat Lab 12/02/19 15:02 Results CMP Stat Lab 12/02/19 15:02 Completed Lactic Acid Stat Lab 12/02/19 15:05 Completed Manual Differential NC Stat Lab 12/02/19 15:02 Results Pathologist Review Stat Lab 12/02/19 15:02 Results Medication Summary Discontinued Medications Generic Name Dose Route Start Last Admin Trade Name Bert PRN Reason Stop Dose Admin Ceftriaxone Sodium mg 12/02/19 13:55 Rocephin 1000 Mg Inj IM 12/02/19 13:56 STAT ONE Diphenhydramine HCl 25 mg 12/02/19 15:04 12/02/19 15:06 Benadryl 50 Mg/Ml IV 12/02/19 15:05 25 mg STAT ONE Administration Diphenhydramine HCl Confirm 12/02/19 15:04 Benadryl 50 Mg/Ml Administered 12/02/19 15:05 Dose 50 mg .ROUTE .STK-MED ONE Sodium Chloride 1,000 mls @ 999 mls/hr 12/02/19 13:55 12/02/19 14:02 Sodium Chloride 0.9% 1000 Ml IV 12/02/19 14:55 999 mls/hr .Q1H1M STA Administration Clindamycin HCl/Dextrose 900 mg in 50 mls @ 100 mls/hr 12/02/19 13:57 14:34 Clindamycin-D5w 900 Mg/50 Ml IV 12/02/19 14:26 100 mls/hr STAT STA 100 mls/hr Administration Ceftriaxone Sodium/Dextrose Confirm 12/02/19 13:58 Rocephin 1 Gm-D5w 50 Ml Bag Administered 12/02/19 13:59 Dose 1 g in 50 mls @ ud IV .STK-MED ONE Clindamycin HCl/Dextrose Confirm 12/02/19 14:00 Clindamycin-D5w 900 Mg/50 Ml Administered 12/02/19 14:01 Dose 900 mg in 50 mls @ ud IV .STK-MED ONE Sodium Chloride Confirm 12/02/19 14:00 Sodium Chloride 0.9% 1000 Ml Administered 12/02/19 14:01 Dose 1,000 mls @ ud .ROUTE .STK-MED ONE Ceftriaxone Sodium/Dextrose 1 g in 50 mls @ 100 mls/hr 12/02/19 14:56 16:41 Rocephin 1 Gm-D5w 50 Ml Bag IV 12/02/19 15:25 50 ml/hr STAT STA 50 mls/hr Administration Morphine Sulfate 4 mg 12/02/19 13:55 12/02/19 14:01 Morphine Sulfate 4 Mg Inj IV 12/02/19 13:56 4 mg STAT ONE Administration Morphine Sulfate Confirm 12/02/19 14:00 Morphine Sulfate 4 Mg Inj Administered 12/02/19 14:01 Dose 4 mg .ROUTE .STK-MED ONE Lab/Rad Data: Laboratory Result Diagrams 12/02/19 15:02 12/02/19 15:02 Laboratory Results 12/02/19 12/02/19 12/02/19 Range/Units 15:05 15:02 15:02 WBC 27.2 H* (4.0-10.5) K/mm3 RBC 4.40 (4.1-5.4) M/mm3 Hgb 12.0 (12.0-16.0) gm/dl Hct 36.6 (35-47) % MCV 83.2 (78-100) fl MCH 27.3 (26-32) pg MCHC 32.8 (32-36) g/dl RDW 14.7 H (11.5-14.0) % Plt Count 294 (150-450) K/mm3 MPV 10.0 (7.5-11.0) fl Segmented Neutrophils 73 H (36.0-66.0) % Band Neutrophils 14 H (0.0-2.0) % Lymphocytes (Manual) 6 L (24-44) % Monocytes (Manual) 6 (0.0-12.0) % Eosinophils (Manual) 1 (0.00-3.0) % Toxic Granulation 2+ Platelet Estimate NORMAL (NORMAL) RBC Morphology ABNORMAL Anisocytosis 1+ Smear Path Review Pending Sodium 136 L (137-145) mmol/L Potassium 3.0 L (3.5-5.1) mmol/L Chloride 103 (98-107) mmol/L Carbon Dioxide 25 (22-30) mmol/L Anion Gap 10.9 (5-15) MEQ/L BUN 16 (7-17) mg/dL Creatinine 0.57 (0.52-1.04) mg/dL Estimated GFR > 60.0 ML/MIN Glucose 96 (74-106) mg/dL Lactic Acid 0.8 (0.4-2.0) Calcium 8.8 (8.4-10.2) mg/dL Total Bilirubin 0.70 (0.2-1.3) mg/dL AST 21 (14-36) U/L ALT 18 (0-35) U/L Alkaline Phosphatase 114 (38-126) U/L Serum Total Protein 6.6 (6.3-8.2) g/dL Albumin 3.3 L (3.5-5.0) g/dL - Progress Progress: unchanged - Departure Departure Disposition: In-patient Admission Clinical Impression: Cellulitis Condition: Fair Critical Care Time: No Referrals: DOCTOR,NO FAMILY [Primary Care Provider] - Instructions: Cellulitis (Skin Infection), Adult (DC)
[2019-12-02] MEDS ORDERED: Zofran 4 MG/2 ML VIAL IV PRN (17:55)
[2019-12-02] MEDS: TYLENOL 325 MG PO PRN (18:35)
[2019-12-02] MEDS: Norco 10/325 MG Tablet PO PRN (20:57)
[2019-12-02] MEDS ORDERED: NICODERM CQ 14 MG TOP SCH (21:00)
[2019-12-02] MEDS ORDERED: Vancomycin 1GM/ Ns 250ML*** 250 ML IV SCH (22:00)
[2019-12-02] MEDS ORDERED: NICODERM CQ 14 MG TOP PRN (22:26)
[2019-12-03] MEDS: TYLENOL 325 MG PO PRN (00:15)
[2019-12-03] MEDS: Norco 10/325 MG Tablet PO PRN ×4 (02:17→18:21)
[2019-12-03 05:18] LABS: Hematocrit 35.7 % (35-47); Hemoglobin 11.6 gm/dl (12.0-16.0); Mean Cell Volume 84.8 fl (78-100); Mean Corpuscular Hemoglobin 27.6 pg (26-32); Mean Corpuscular Hgb Concent. 32.5 g/dl (32-36); Mean Platelet Volume 9.9 fl (7.5-11.0); Platelet Count 283 K/mm3 (150-450); Red Blood Count 4.21 M/mm3 (4.1-5.4); Red Cell Distribution Width 14.9 % (11.5-14.0)
[2019-12-03 05:40] LABS: ALBUMIN 2.8 g/dL (3.5-5.0); ALKALINE PHOSPHATASE 103 U/L (38-126); BLOOD UREA NITROGEN 10 mg/dL (7-17); CHLORIDE 102 mmol/L (98-107); Carbon Dioxide 28 mmol/L (22-30); Creatinine 1 0.62 mg/dL (0.52-1.04); Glucose 124 mg/dL (74-106); SGOT/AST 14 U/L (14-36); SGPT/ALT 16 U/L (0-35); SODIUM 135 mmol/L (137-145); Total Protein 5.9 g/dL (6.3-8.2); White Blood Count 25.4 K/mm3 (4.0-10.5)
[2019-12-03 06:10] LABS: Potassium 2.7 mmol/L (3.5-5.1)
[2019-12-03 07:18] LABS: BAND 23 % (0.0-2.0); Eosinophil 1 % (0.00-3.0); Lymphocytes 11 % (24-44); Monocyte 3 % (0.0-12.0); Neutrophils 62 % (36.0-66.0); Total Cells Counted 100
[2019-12-03 07:20] LABS: Absolute Neutrophil Ct (ANC) 21.59 (1.4-6.9); Platelet Estimate NORMAL (NORMAL)
[2019-12-03] MEDS: POTASSIUM CHLORIDE 20 mEq IN WATER 100ML 20 MEQ/100 ML BAG IV SCH ×2 (07:41→12:38)
--- NOTE | 2019-12-03 08:16 | PCM.HP ---
History of Present Illness - Chief Complaint Chief Complaint: cellulitis History of Present Illness: is a 39 year old female with a 3 day history of right buttock pain, redness and swelling, she had fever on arrival. She is very upset about multiple attempts at IV, tearful and threatening to leave AMA at time of interview so history is limited by her being upset and angry, she denies previous history of similar infections. - Review of Systems Constitutional: Fever, Chills Respiratory: No Cough, No Short Of Breath Cardiac: No Chest Pain, No Edema, No Syncope Abdominal/Gastrointestinal: No Abdominal Pain, No Nausea, No Vomiting, No Diarrhea Skin: Cellulitis All Other Systems: Reviewed and Negative Medications & Allergies Home Medications: Home Medication List No Home Meds [No Home Meds] 1 [facility] 12/28/16 [History Confirmed 12/02/19] Allergies/Adverse Reactions: Allergies Allergy/AdvReac Type Severity Reaction Status Date / Time tramadol AdvReac Unknown "I DON'T Verified 12/02/19 18:28 LIKE IT" - Past Medical History Past Medical History: Yes Neurological History: No Pertinent History ENT History: No Pertinent History Cardiac History: Arrhythmia Respiratory History: Pneumonia Endocrine Medical History: No Pertinent History Musculoskelatal History: No Pertinent History GI Medical History: No Pertinent History History: No Pertinent History Pyscho-Social History: Anxiety Reproductive Disorders: No Pertinent History Comment: PT STATES THAT SHE IS SUPPOSED TO SEE A GI SPECIALIST BERFORE THE COVID IN AUGUST HAS NOT BEEN SEEN IN REGARDS TO HER NEW FOUND GI PROBLEMS PT THOUGHT THAT SHE WAS HAVING THE FLU WITH DI[facility] AND WAS TESTED BUT DIDN'T HAVE THE FLU BUT PT IS GOING TO BE CALLING TO HOPFULLY GET TO SEE THE GI SPECIALIST - Female History Hx Last Menstrual Period: week ago Are you now?: No - Past Surgical History Past Surgical History: Yes Neuro Surgical History: No Pertinent History Cardiac History: No Pertinent History Respiratory Surgery: No Pertinent History GI Surgical History: No Pertinent History Musculskeletal Surgical Hx: No Pertinent History Female Surgical History: Tubal Ligation Other Surgical History: TUBES IN EARS AND TUBAL. MENIGITIS 2005. BLOOD TRANSFUSION 2005 - Social History Smoking Status: Current every day smoker How long have you smoked: 25 YEARS Exposure to second hand smoke: Yes Alcohol: None Drug Use: methamphetamines - Physical Exam Vital Signs: Vital Signs - 24 hr Temp Pulse Resp BP Pulse Ox 12/03/19 07:29 98.4 F 82 16 104/62 97 12/03/19 04:30 98.5 F 85 18 99/52 98 12/03/19 00:00 100.3 F 102 H 24 102/57 97 12/02/19 19:30 98.5 F 18 12/02/19 19:00 100.5 F 108 H 18 120/66 99 12/02/19 18:30 100.5 F 108 H 18 120/66 99 12/02/19 18:00 112 H 16 108/68 99 12/02/19 17:54 99 12/02/19 15:50 108 H 16 129/74 99 12/02/19 15:09 115 H 18 114/81 94 L 12/02/19 13:52 99.1 F 113 H 18 116/97 99 General Appearance: no apparent distress, alert Neurologic Exam: alert, oriented x 3, cooperative, normal mood/affect, nml cerebellar function, nml station & gait, sensation nml, No motor deficits Respiratory Exam: normal breath sounds, lungs clear, No respiratory distress Cardiovascular Exam: regular rate/rhythm, normal heart sounds, normal peripheral pulses Gastrointestinal/Abdomen Exam: soft, normal bowel sounds, No tenderness, No mass Rectal Exam: other (significant induration, redness and warmth to right buttock/ perineal region. very tender to touch, entire area covered heavily in barrier cream by nursing staff) Wound Assessment: Skin/Wound Assessment Wound/Incision Assessment Start: 12/02/19 18: 27 Text: Status: Active Freq: Q6H Protocol: Document 12/03/19 02:00 PDT (Rec: 12/03/19 02:50 PDT [id number]) Wound/Incision Assessment Buttock Wound Assessment Shift Assessment Wound Type abcess Drainage Amount None Drainage Odor None/Absent General Appearance Reddened Comment SWELLING ON PTS RIGHT LABIA AND RIGHT LOWER BUTTOCK AREA OF CONCERN BARRIER ZINC CREAM APPLIED TO PTS CELLULITIS ON HER BUTTOCKS AND LABIA AT THIS TIME Wound Photo Photo Taken Yes Date: 12/02/19 Time: 19:00 Comment: PHOTOS PLACED IN PTS CHART Results - Labs Lab/Micro Results: Lab Results-Last 24 Hours 12/02/19 12/02/19 12/02/19 Range/Units 15:02 15:02 15:05 WBC 27.2 H* (4.0-10.5) K/mm3 RBC 4.40 (4.1-5.4) M/mm3 Hgb 12.0 (12.0-16.0) gm/dl Hct 36.6 (35-47) % MCV 83.2 (78-100) fl MCH 27.3 (26-32) pg MCHC 32.8 (32-36) g/dl RDW 14.7 H (11.5-14.0) % Plt Count 294 (150-450) K/mm3 MPV 10.0 (7.5-11.0) fl Absolute Granulocytes (1.4-6.9) Segmented Neutrophils 73 H (36.0-66.0) % Band Neutrophils 14 H (0.0-2.0) % Lymphocytes (Manual) 6 L (24-44) % Monocytes (Manual) 6 (0.0-12.0) % Eosinophils (Manual) 1 (0.00-3.0) % Toxic Granulation 2+ Platelet Estimate NORMAL (NORMAL) RBC Morphology ABNORMAL Anisocytosis 1+ Smear Path Review Pending Sodium 136 L (137-145) mmol/L Potassium 3.0 L (3.5-5.1) mmol/L Chloride 103 (98-107) mmol/L Carbon Dioxide 25 (22-30) mmol/L Anion Gap 10.9 (5-15) MEQ/L BUN 16 (7-17) mg/dL Creatinine 0.57 (0.52-1.04) mg/dL Estimated GFR > 60.0 ML/MIN Glucose 96 (74-106) mg/dL Lactic Acid 0.8 (0.4-2.0) Calcium 8.8 (8.4-10.2) mg/dL Total Bilirubin 0.70 (0.2-1.3) mg/dL AST 21 (14-36) U/L ALT 18 (0-35) U/L Alkaline Phosphatase 114 (38-126) U/L Serum Total Protein 6.6 (6.3-8.2) g/dL Albumin 3.3 L (3.5-5.0) g/dL 12/03/19 12/03/19 12/03/19 Range/Units 05:05 05:05 05:10 WBC 25.4 H* (4.0-10.5) K/mm3 RBC 4.21 (4.1-5.4) M/mm3 Hgb 11.6 L (12.0-16.0) gm/dl Hct 35.7 (35-47) % MCV 84.8 (78-100) fl MCH 27.6 (26-32) pg MCHC 32.5 (32-36) g/dl RDW 14.9 H (11.5-14.0) % Plt Count 283 (150-450) K/mm3 MPV 9.9 (7.5-11.0) fl Absolute Granulocytes 21.59 H (1.4-6.9) Segmented Neutrophils 62 (36.0-66.0) % Band Neutrophils 23 H (0.0-2.0) % Lymphocytes (Manual) 11 L (24-44) % Monocytes (Manual) 3 (0.0-12.0) % Eosinophils (Manual) 1 (0.00-3.0) % Toxic Granulation Platelet Estimate NORMAL (NORMAL) RBC Morphology NORMAL Anisocytosis Smear Path Review Sodium 135 L (137-145) mmol/L Potassium 2.7 L* (3.5-5.1) mmol/L Chloride 102 (98-107) mmol/L Carbon Dioxide 28 (22-30) mmol/L Anion Gap 8.0 (5-15) MEQ/L BUN 10 (7-17) mg/dL Creatinine 0.62 (0.52-1.04) mg/dL Estimated GFR > 60.0 ML/MIN Glucose 124 H (74-106) mg/dL Lactic Acid 1.1 (0.4-2.0) Calcium 8.0 L (8.4-10.2) mg/dL Total Bilirubin 0.40 (0.2-1.3) mg/dL AST 14 (14-36) U/L ALT 16 (0-35) U/L Alkaline Phosphatase 103 (38-126) U/L Serum Total Protein 5.9 L (6.3-8.2) g/dL Albumin 2.8 L (3.5-5.0) g/dL - Radiology Impressions Radiology Exams & Impressions: Radiology Procedures Category Date Time Status ABDOMEN AND PELVIS W CONTRAST [CT] Stat Exams 12/02/19 13:58 Completed Assessment/Plan (1) Cellulitis Current Visit: Yes Status: Acute Assessment & Plan: on vanc/rocephin Code(s): L03.90 - CELLULITIS, UNSPECIFIED (2) Hypokalemia Current Visit: Yes Status: Acute Assessment & Plan: replacing Code(s): E87.6 - HYPOKALEMIA
[2019-12-03] MEDS: Sodium Chloride 0.9% W/ 20 mEq KCl/LITER 1,000 ML IV SCH ×2 (09:03→21:37)
[2019-12-03] MEDS: VANCOMYCIN 2 GRAM/400 ML BAG 2 GM/400 ML PIGGYBACK IV SCH ×2 (10:34→21:39)
[2019-12-03] MEDS: ENOXAPARIN SODIUM SQ SCH (10:36)
[2019-12-03] MEDS: ROCEPHIN 1 Gm-D5w 50 ml Bag** 1 G/50 ML IVPB IV SCH (15:02)
[2019-12-04] MEDS ORDERED: Sodium Chloride 0.9% 500 ML 500 ML IV ONE (01:10)
[2019-12-04] MEDS: Norco 10/325 MG Tablet PO PRN ×6 (01:15→22:04)
[2019-12-04] MEDS ORDERED: TROUGH DRUG LEVELS IJ ONE (09:30)
[2019-12-04 09:52] LABS: Absolute Neutrophil Ct (ANC) 14.41 (1.4-6.9); BASOPHIL % 0.2 % (0.0-0.4); Basophil (Absolute #) 0.03 (0-0.4); Eosinophil % 2.5 % (0.00-5.0); Eosinophil (Absolute #) 0.45 (0-0.5); Hematocrit 34.1 % (35-47); Lymphocyte (Absolute #) 2.21 (1.0-4.6); Lymphocytes % 12.2 % (24.0-44.0); Mean Corpuscular Hemoglobin 27.4 pg (26-32); Mean Corpuscular Hgb Concent. 32.3 g/dl (32-36); Mean Platelet Volume 9.7 fl (7.5-11.0); Monocyte (Absolute #) 1.05 (0.0-1.3); Monocytes % 5.8 % (0.0-12.0); Neutrophil % 79.3 % (36.0-66.0); Platelet Count 303 K/mm3 (150-450); Red Blood Count 4.01 M/mm3 (4.1-5.4); Red Cell Distribution Width 14.9 % (11.5-14.0); White Blood Count 18.2 K/mm3 (4.0-10.5)
[2019-12-04] MEDS: ENOXAPARIN SODIUM SQ SCH (09:56)
[2019-12-04] MEDS: ROCEPHIN 1 Gm-D5w 50 ml Bag** 1 G/50 ML IVPB IV SCH (09:59)
[2019-12-04 10:15] LABS: ANION GAP 7.3 MEQ/L (5-15); BLOOD UREA NITROGEN 6 mg/dL (7-17); CHLORIDE 105 mmol/L (98-107); Calcium 7.9 mg/dL (8.4-10.2); Carbon Dioxide 28 mmol/L (22-30); Creatinine 1 0.54 mg/dL (0.52-1.04); Glucose 92 mg/dL (74-106); MAGNESIUM 1.9 mg/dL (1.6-2.3); Potassium 3.1 mmol/L (3.5-5.1); SODIUM 137 mmol/L (137-145)
--- NOTE | 2019-12-04 10:37 | PCM.NOTE ---
Date and Time: 12/04/19 1035 Subjective Assessment: patient reports she did not have fever overnight and feeling some better but still has significant pain Objective Exam General Appearance: no apparent distress, alert Wound Assessment: Skin/Wound Assessment Wound/Incision Assessment Start: 12/02/19 18: 27 Text: Status: Active Freq: Q6H Protocol: Document 12/04/19 08:00 ALPHONSO (Rec: 12/04/19 09:15 ALPHONSO [id number]) Wound/Incision Assessment Buttock Wound Assessment Shift Assessment Wound Type cellulitis Wound Stage Non Pressure Wound Drainage Amount None Drainage Odor None/Absent General Appearance Open to air Clean/Dry Reddened Surrounding Tissue [place] Edematous Indurated Comment Labia swollen hard and warm to touch. Tender with palpation and movement/activity. Area only slightly pink color looks improved since admit. New Ice pack placed over labial area. Wound Photo Photo Taken Yes Comment: see on chart, on admission Respiratory Exam: normal breath sounds, lungs clear, No respiratory distress Cardiovascular Exam: regular rate/rhythm, normal heart sounds Gastrointestinal/Abdomen Exam: soft, No tenderness, No mass Rectal Exam: other (significant induration and swelling right labia and buttock with no obvious fluctuance, very tender and induration appears to be localizing since admission) OBJECTIVE DATA Vital Signs: Vital Signs - 24 hr Temp Pulse Resp BP Pulse Ox 12/04/19 07:24 98.4 F 74 16 92/51 96 12/04/19 04:00 99 F 80 36 H 98/57 97 12/04/19 02:30 86 80/54 12/04/19 00:30 99.5 F 85 16 80/64 12/03/19 20:00 99.2 F 78 18 90/64 98 12/03/19 16:00 97.4 F 81 16 116/62 99 12/03/19 11:40 97.3 F 92 H 18 105/58 99 Pain Assessment - Last Documented Pain Intensity 10 Pain Scale Used 0-10 Pain Scale Intake and Output: Intake & Output 12/01/19 12/02/19 12/03/19 12/04/19 11:59 11:59 11:59 11:59 Intake Total 2628 4102 Output Total 1075 1800 Balance 1553 2302 Weight 98.5 kg Lab Results: Lab Results-Last 24 Hours 12/04/19 12/04/19 12/04/19 Range/Units 09:48 09:48 09:48 WBC 18.2 H (4.0-10.5) K/mm3 RBC 4.01 L (4.1-5.4) M/mm3 Hgb 11.0 L (12.0-16.0) gm/dl Hct 34.1 L (35-47) % MCV 85.0 (78-100) fl MCH 27.4 (26-32) pg MCHC 32.3 (32-36) g/dl RDW 14.9 H (11.5-14.0) % Plt Count 303 (150-450) K/mm3 MPV 9.7 (7.5-11.0) fl Gran % 79.3 H (36.0-66.0) % Eos # (Auto) 0.45 (0-0.5) Absolute Lymphs (auto) 2.21 (1.0-4.6) Absolute Monos (auto) 1.05 (0.0-1.3) Lymphocytes % 12.2 L (24.0-44.0) % Monocytes % 5.8 (0.0-12.0) % Eosinophils % 2.5 (0.00-5.0) % Basophils % 0.2 (0.0-0.4) % Absolute Granulocytes 14.41 H (1.4-6.9) Basophils # 0.03 (0-0.4) Sodium 137 (137-145) mmol/L Potassium 3.1 L (3.5-5.1) mmol/L Chloride 105 (98-107) mmol/L Carbon Dioxide 28 (22-30) mmol/L Anion Gap 7.3 (5-15) MEQ/L BUN 6 L (7-17) mg/dL Creatinine 0.54 (0.52-1.04) mg/dL Estimated GFR > 60.0 ML/MIN Glucose 92 (74-106) mg/dL Calcium 7.9 L (8.4-10.2) mg/dL Magnesium 1.9 (1.6-2.3) mg/dL Vancomycin Trough 10.20 (10-20) ug/mL Radiology Exams: Radiology Procedures Category Date Time Status ABDOMEN AND PELVIS W CONTRAST [CT] Stat Exams 12/02/19 13:58 Completed Assessment/Plan (1) Cellulitis Current Visit: Yes Status: Acute Assessment & Plan: cont vanc and rocephin, consult surgery. no fluid collection initially on CT in ER but has localizing induration on right labia and buttock concerning for evolving abscess, will consult for opinion of continued IV abx vs need for I and D Code(s): L03.90 - CELLULITIS, UNSPECIFIED (2) Hypokalemia Current Visit: Yes Status: Acute Code(s): E87.6 - HYPOKALEMIA
[2019-12-04] MEDS: VANCOMYCIN 2 GRAM/400 ML BAG 2 GM/400 ML PIGGYBACK IV SCH ×2 (11:36→22:05)
[2019-12-04] MEDS: Sodium Chloride 0.9% W/ 20 mEq KCl/LITER 1,000 ML IV SCH (14:05)
[2019-12-05] MEDS: Norco 10/325 MG Tablet PO PRN ×4 (02:07→21:20)
[2019-12-05] MEDS: Sodium Chloride 0.9% W/ 20 mEq KCl/LITER 1,000 ML IV SCH (02:09)
[2019-12-05] MEDS ORDERED: Zofran 4 MG/2 ML VIAL ONE (08:28)
[2019-12-05] MEDS ORDERED: DIPRIVAN 200 MG/20 ML IV ONE (08:28)
[2019-12-05] MEDS ORDERED: Decadron 4 MG INJ ONE (08:28)
[2019-12-05] MEDS ORDERED: DILAUDID 2 MG INJECTION ONE ×2 (08:28→10:32)
[2019-12-05] MEDS ORDERED: Xylocaine-Mpf 2% 5 Ml Vial ONE (08:28)
[2019-12-05] MEDS ORDERED: Pepcid 20 MG VIAL IV ONE (08:30)
[2019-12-05] MEDS ORDERED: Lactated Ringers 1,000 ML IV SCH ×2 (08:30→09:00)
[2019-12-05] MEDS ORDERED: SOD CITRATE-CITRIC ACID SOLN PO ONE (08:30)
[2019-12-05] MEDS: VANCOMYCIN 2 GRAM/400 ML BAG 2 GM/400 ML PIGGYBACK IV SCH ×2 (09:08→21:14)
[2019-12-05] MEDS: ENOXAPARIN SODIUM SQ SCH (09:08)
[2019-12-05] MEDS: ROCEPHIN 1 Gm-D5w 50 ml Bag** 1 G/50 ML IVPB IV SCH (09:09)
--- NOTE | 2019-12-05 09:47 | PCM.NOTE ---
Date and Time: 12/05/19 0946 Subjective Assessment: patient going to surgery for incision and drainage this am Objective Exam General Appearance: no apparent distress, alert Wound Assessment: Skin/Wound Assessment Wound/Incision Assessment Start: 12/02/19 18: 27 Text: Status: Active Freq: Q6H Protocol: Document 12/05/19 02:00 SC (Rec: 12/05/19 02:56 SC [id number]) Wound/Incision Assessment Buttock Wound Assessment Shift Assessment Wound Type cellulitis Wound Stage Non Pressure Wound Drainage Amount Minimal Drainage Description brown/white puss Drainage Odor None/Absent General Appearance Open to air Reddened Surrounding Tissue [place] Edematous Primary Dressing cool wet wash cloth for pt comfort Comment R Labia and R buttock proximal to labia, remains hard, edematous and warm to touch, slightly reddened. Very Tender with palpation and movement/ activity. Brown/white pussy drainage now currently noted, was able to express a small amout from open pinpoint area in center of large bump on R buttock just proximal to labia , pt still not wanting to use ice pack, but now using a cold wet wash cloth compress over area between legs. No odor noted at this time. Wound Photo Comment: one pic on chart from admission Respiratory Exam: normal breath sounds, lungs clear, No respiratory distress Gastrointestinal/Abdomen Exam: soft, No tenderness, No mass Pelvic Exam: other (right labial and buttock abscess present) OBJECTIVE DATA Vital Signs: Vital Signs - 24 hr Temp Pulse Resp BP Pulse Ox 12/05/19 08:39 98.6 F 74 18 93/59 97 12/05/19 07:39 98.6 F 74 18 93/59 97 12/05/19 04:00 98.4 F 73 14 96/61 95 12/04/19 23:30 98.7 F 79 16 98/54 98 12/04/19 19:31 98.6 F 82 17 103/58 98 12/04/19 16:00 98.6 F 73 16 110/62 99 12/04/19 12:00 70 18 100/76 Pain Assessment - Last Documented Pain Intensity 4 Pain Scale Used 0-10 Pain Scale Intake and Output: Intake & Output 12/02/19 12/03/19 12/04/19 12/05/19 11:59 11:59 11:59 11:59 Intake Total 3678 5118 7723 Output Total 1226 9261 2400 Balance 1553 2302 1476 Weight 98.5 kg 98.5 kg Lab Results: Lab Results-Last 24 Hours 12/04/19 12/04/19 12/04/19 Range/Units 09:48 09:48 09:48 WBC 18.2 H (4.0-10.5) K/mm3 RBC 4.01 L (4.1-5.4) M/mm3 Hgb 11.0 L (12.0-16.0) gm/dl Hct 34.1 L (35-47) % MCV 85.0 (78-100) fl MCH 27.4 (26-32) pg MCHC 32.3 (32-36) g/dl RDW 14.9 H (11.5-14.0) % Plt Count 303 (150-450) K/mm3 MPV 9.7 (7.5-11.0) fl Gran % 79.3 H (36.0-66.0) % Eos # (Auto) 0.45 (0-0.5) Absolute Lymphs (auto) 2.21 (1.0-4.6) Absolute Monos (auto) 1.05 (0.0-1.3) Lymphocytes % 12.2 L (24.0-44.0) % Monocytes % 5.8 (0.0-12.0) % Eosinophils % 2.5 (0.00-5.0) % Basophils % 0.2 (0.0-0.4) % Absolute Granulocytes 14.41 H (1.4-6.9) Basophils # 0.03 (0-0.4) Sodium 137 (137-145) mmol/L Potassium 3.1 L (3.5-5.1) mmol/L Chloride 105 (98-107) mmol/L Carbon Dioxide 28 (22-30) mmol/L Anion Gap 7.3 (5-15) MEQ/L BUN 6 L (7-17) mg/dL Creatinine 0.54 (0.52-1.04) mg/dL Estimated GFR > 60.0 ML/MIN Glucose 92 (74-106) mg/dL Calcium 7.9 L (8.4-10.2) mg/dL Magnesium 1.9 (1.6-2.3) mg/dL Serum , Qual (Negative) Vancomycin Trough 10.20 (10-20) ug/mL 12/05/19 Range/Units 00:00 WBC (4.0-10.5) K/mm3 RBC (4.1-5.4) M/mm3 Hgb (12.0-16.0) gm/dl Hct (35-47) % MCV (78-100) fl MCH (26-32) pg MCHC (32-36) g/dl RDW (11.5-14.0) % Plt Count (150-450) K/mm3 MPV (7.5-11.0) fl Gran % (36.0-66.0) % Eos # (Auto) (0-0.5) Absolute Lymphs (auto) (1.0-4.6) Absolute Monos (auto) (0.0-1.3) Lymphocytes % (24.0-44.0) % Monocytes % (0.0-12.0) % Eosinophils % (0.00-5.0) % Basophils % (0.0-0.4) % Absolute Granulocytes (1.4-6.9) Basophils # (0-0.4) Sodium (137-145) mmol/L Potassium (3.5-5.1) mmol/L Chloride (98-107) mmol/L Carbon Dioxide (22-30) mmol/L Anion Gap (5-15) MEQ/L BUN (7-17) mg/dL Creatinine (0.52-1.04) mg/dL Estimated GFR ML/MIN Glucose (74-106) mg/dL Calcium (8.4-10.2) mg/dL Magnesium (1.6-2.3) mg/dL Serum , Qual NEGATIVE (Negative) Vancomycin Trough (10-20) ug/mL Assessment/Plan (1) Cellulitis Current Visit: Yes Status: Acute Assessment & Plan: on vanc/rocephin, will have incision and drainage today Code(s): L03.90 - CELLULITIS, UNSPECIFIED (2) Hypokalemia Current Visit: Yes Status: Acute Code(s): E87.6 - HYPOKALEMIA
[2019-12-05] MEDS ORDERED: Sensorcaine 0.25% 10 ML ONE (10:10)
[2019-12-05] MEDS ORDERED: Lactated Ringers 1,000 ML IV ONE (10:10)
[2019-12-05] MEDS: D5W/0.45NS W/ 20mEq KCl 1000 ML 1,000 ML IV SCH (21:14)
[2019-12-06] MEDS: Norco 10/325 MG Tablet PO PRN (06:56)
[2019-12-06] MEDS: D5W/0.45NS W/ 20mEq KCl 1000 ML 1,000 ML IV SCH (08:47)
[2019-12-06] MEDS: ENOXAPARIN SODIUM SQ SCH (08:59)
[2019-12-06] MEDS: ROCEPHIN 1 Gm-D5w 50 ml Bag** 1 G/50 ML IVPB IV SCH (08:59)
[2019-12-06] MEDS: VANCOMYCIN 2 GRAM/400 ML BAG 2 GM/400 ML PIGGYBACK IV SCH ×2 (09:46→21:11)
--- NOTE | 2019-12-06 09:58 | CONS ---
CONSULT DATE: 12/04/2019 HISTORY: Miss Tolbert was seen the evening of 12/04/2019. She had a negative CT scan but clinically she had presented with a right lower labial, right buttock abscess. She was seen and examined at the bedside and this clearly was markedly indurated, fluctuant and clearly appeared to have nature of needing drained. She had not been NPO so she was made NPO after midnight and scheduled for 0930 hours the following morning. IMPRESSION: Despite a negative CT reading, I believe she clinically still has a significant abscess in the perineum at the right labia/right buttock.
--- NOTE | 2019-12-06 10:08 | OP ---
SURGERY DATE/TIME: 12/05/2019 0936 PREOPERATIVE DIAGNOSIS: Right labial buttock abscess. POSTOPERATIVE DIAGNOSIS: This was clearly a perirectal abscess extending into the right buttock and extending into the right lower major labia. PROCEDURE: I&D with placement of drain. SURGEON: Francisco Patterson M.D. ANESTHESIA: General. COMPLICATIONS: None. CONDITION: Stable. INDICATION: The patient has what seems to be a classic abscess. CT was actually negative. DESCRIPTION OF PROCEDURE: She was taken to surgery. General anesthetic. Lithotomy. It was clearly indurated, fluctuant, an obvious place was present. It was marked with a marking pen. Time out had been performed. Cautery was used. Purulence immediately obtained. Culture obtained. Suction was placed and 3 ounces of emerson purulence was expressed. It was widened to 2 cm. At this time both a suction tip and irrigation bulb syringe tip could be placed and it was generously irrigated with a liter of normal saline solution. A drain was placed at the bottom secured with two corner sutures #2-0 chromic catgut and clipped off about an inch below the skin. Sterile dressing applied. The patient tolerated the procedure satisfactorily. No family was present at the termination of the procedure. I had discussed with family prior to surgery.
--- NOTE | 2019-12-06 14:18 | PCM.NOTE ---
Date and Time: 12/06/19 1411 Subjective Assessment: She is feeling better, s/p I&D yesterday. Tolerating po. Pain is currently "8/ 10" but she states it's much better than it was initially. - Review of Systems Constitutional: No Fever Genitourinary Symptoms: Other (abscess; drain in place) Objective Exam General Appearance: no apparent distress, alert, obese Neurologic Exam: oriented x 3, cooperative Wound Assessment: Skin/Wound Assessment Wound/Incision Assessment Start: 12/02/19 18: 27 Text: Status: Active Freq: Q6H Protocol: Document 12/06/19 08:00 BA (Rec: 12/06/19 09:28 BA [id number]) Wound/Incision Assessment Buttock Wound Assessment Shift Assessment Wound Type cellulitis Wound Stage Non Pressure Wound Drainage Amount Minimal Drainage Description Serosanguineous Drainage Odor None/Absent General Appearance Open to air Reddened Surrounding Tissue [place] Edematous Primary Dressing Absorbant Pad Comment Ramirez drain in place draining serosanguinous drainage. Wound Photo Comment: one pic on chart from admission Ears, Nose, Throat Exam: moist mucous membranes Respiratory Exam: normal breath sounds, lungs clear, No crackles/rales, No rhonchi, No wheezing Cardiovascular Exam: regular rate/rhythm, normal heart sounds, No murmur Gastrointestinal/Abdomen Exam: soft, normal bowel sounds, No tenderness, No distention, No mass, No guarding, No rebound Extremity Exam: No pedal edema, No swelling Back Exam: normal inspection, No rash Pelvic Exam: other (inferior labia and proximal buttock on the R with induration , no fluctuance; + erythema. There is a large drain present.) OBJECTIVE DATA Vital Signs: Vital Signs - 24 hr Temp Pulse Resp BP BP Pulse Ox 12/06/19 12:24 97.4 F 56 L 16 100/56 96 12/06/19 10:20 62 106/57 12/06/19 07:00 97.9 F 60 16 90/51 99 12/06/19 06:51 97 12/06/19 03:00 97.8 F 54 L 17 87/55 92/50 97 12/05/19 23:00 98.5 F 61 18 100/64 97 12/05/19 19:14 96 12/05/19 19:00 97.8 F 62 19 101/64 92/50 98 12/05/19 14:20 97.9 F 55 L 16 98/52 98 Oxygen-Last 24 hours Oxygen Flowrate (L/min)-RT 1 Oxygen Flowrate (L/min)-RT 1 Pain Assessment - Last Documented Pain Intensity 0 Pain Scale Used 0-10 Pain Scale Intake and Output: Intake & Output 12/04/19 12/05/19 12/06/19 12/07/19 11:59 11:59 11:59 11:59 Intake Total 4102 3876 3565 380 Output Total 1800 2400 1850 150 Balance 2302 1476 1715 230 Weight 98.5 kg Multi-Disciplinary Progress Notes: Multi-Disciplinary Progress Notes 12/06/19 11:21 Case Management Note by Marjan Rivas S/Servando PATIENT- NO CHANGE IN DC PLANS AT THIS TIME. WILL CONTINUE TO MONITOR AND HELP WITH ANY SUPPORT/REFERRALS NEEDED AT DC FOR CARE OF ABCESS Initialized on 12/06/19 11:21 - END OF NOTE 12/05/19 17:54 Respiratory Note by Susy West PT CONTINUES TO IS SDC 2500CC ROOM AIR 98% Initialized on 12/05/19 17:54 - END OF NOTE Assessment/Plan (1) Perineal abscess Current Visit: Yes Status: Acute Assessment & Plan: On day #5 vancomycin and rocephin. Wound culture is pending; I discussed with pt that it may be back tomorrow, and if it is susceptible to an oral antibiotic then we may be able to start treating orally (however, unsure if this would happen tomorrow or after a few more days of IV treatment). Appreciate surgery, thank you. Pt has very difficult IV access; currently has 1 22gauge IV. Attempts to place a PICC or Mid line were unsuccessful. I did mention a port to the pt and she was quite resistant. Code(s): L02.215 - CUTANEOUS ABSCESS OF PERINEUM
[2019-12-06] MEDS: NORCO 5/325 MG PO PRN ×2 (15:28→21:23)
[2019-12-07] MEDS: Sodium Chloride 0.9% W/ 20 mEq KCl/LITER 1,000 ML IV SCH (07:15)
[2019-12-07] MEDS: Norco 10/325 MG Tablet PO PRN (07:49)
[2019-12-07 08:43] VITALS: BP 113/64; PULSE 59
[2019-12-07] MEDS: VANCOMYCIN 2 GRAM/400 ML BAG 2 GM/400 ML PIGGYBACK IV SCH (09:25)
[2019-12-07] MEDS: ENOXAPARIN SODIUM SQ SCH (09:26)
--- NOTE | 2019-12-07 09:45 | PCM.DS ---
Discharge Summary Date of Admission: 12/02/19 18:10 Admitting Physician: KIRSTEN TOBIN Consults: Consults on Case 12/04/19 10:35 Consult Surgery ROUTINE Primary Care Provider: NO FAMILY DOCTOR Allergies Allergies tramadol Adverse Reaction (Unknown, Verified 12/02/19 18:28) "I DON'T LIKE IT" Hospital Summary - Hospital Course Hospital Course: Pt is 39 yo female who was admitted with perineal cellulitis which developed into an abscess and was drained by surgery, thank you. Today is day #6 of vancomycin and rocephin; cx returned MRSA today. Pt is afebrile, feeling better , rose po. She does have a drain at the site. Surgery cleared pt to d/c to home. She will be off work until re-eval by PCP (which should be in about 1 week). Home on po clindamycin. - Vitals & Intake/Output Vital Signs: Vital Signs Temperature 97.9 F 12/07/19 08:00 Pulse Rate 59 L 12/07/19 08:00 Respiratory Rate 22 12/07/19 08:00 Blood Pressure 113/64 12/07/19 08:00 O2 Sat by Pulse Oximetry 99 12/07/19 03:57 Intake & Output: Intake & Output 12/04/19 12/05/19 12/06/19 12/07/19 11:59 11:59 11:59 11:59 Intake Total 4102 3876 3565 2163 Output Total 1800 2400 1850 250 Balance 2302 1476 1715 1913 Weight 98.5 kg - Lab Result Diagrams: 12/04/19 09:48 12/04/19 09:48 Micro Results-Entire Visit: Microbiology 12/05/19 09:51 Wound Culture - Final Buttock - Right Lower Methicillin Resist Staph Aur 12/02/19 15:02 Blood Culture Gram Stain - Final Blood Not Reportable Blood Culture - Final NO GROWTH - Procedures and Test Procedures and Tests throughout Hospitalization: Therapy Orders & Screens 12/05/19 12:15 Incentive Spirometry TID Comment: Diagnosis: cellulitis 12/05/19 13:40 Oxygen Nasal Cannula 1 lpm Comment: Diagnosis: cellulitis 12/05/19 13:41 Respiratory Therapy Assessment DAILY Comment: Diagnosis: cellulitis Discharge Exam General Appearance: no apparent distress, obese Neurologic Exam: alert, oriented x 3, cooperative Eye Exam: eyes nml inspection Ears, Nose, Throat Exam: moist mucous membranes Respiratory Exam: normal breath sounds, lungs clear, No crackles/rales, No rhonchi, No wheezing Cardiovascular Exam: regular rate/rhythm, normal heart sounds, No murmur Gastrointestinal/Abdomen Exam: soft, normal bowel sounds, No tenderness, No distention, No mass, No guarding, No rebound Pelvic Exam: other (perineum on R with induration inferior to the tube; serosanguinous drainage present. ttp. no fluctuance.) Extremity Exam: normal inspection, No pedal edema, No swelling Skin Exam: normal color, warm, dry, No rash Wound Assessment: Skin/Wound Assessment Wound/Incision Assessment Start: 12/02/19 18: 27 Text: Status: Active Freq: Q6H Protocol: Document 12/07/19 08:00 RUBEN (Rec: 12/07/19 08:48 RUBEN [id number]) Wound/Incision Assessment Buttock Wound Assessment Shift Assessment Wound Type cellulitis Wound Stage Non Pressure Wound Drainage Amount Minimal Drainage Description Serosanguineous Drainage Odor None/Absent General Appearance Open to air Reddened Surrounding Tissue [place] Edematous Primary Dressing Absorbant Pad Comment [employer] drain in place draining serosanguinous drainage. pt performing pericare with betadine solution as needed. Wound Photo Comment: one pic on chart from admission Final Diagnosis/Problem List - Final Discharge Diagnosis/Problem (1) Perineal abscess Current Visit: Yes Status: Acute Assessment & Plan: Much improved. Home on po clindamycin. advised any fever or worsening she must return EDUARDO. F/u wtihi surgery as directed and with PCP in 1 wk. Off work until cleared by surgery and PCP. Code(s): L02.215 - CUTANEOUS ABSCESS OF PERINEUM - Discharge Disposition: Home, Self-Care Condition: Good Prescriptions: New Clindamycin HCl 300 mg PO QID #40 capsule Hydrocodone/APAP 5-325 Tab^^^ [Evant 5-325 Tablet^^^] 1 tab PO Q6HPRN PRN # 28 tablet MDD 6 PRN Reason: Pain Continue No Home Meds [No Home Meds] 1 ea [facility] UD Instructions: MRSA (DC), Laceration Repair With Stitches (DC) Additional Instructions: Self abdifatah-care per pt as directed with betadine solution. Eat yogurt or take probiotic daily when on antibiotics. Mild diarrhea can be expected, but severe diarrhea must be reported to PCP right away. Take all antibiotics until gone. Follow up with: JOSSUE SALMERON [ACTIVE STAFF] - 12/14/19 11:15 am HOWARD MENON [ACTIVE STAFF] - 12/15/19 10:15 am
[2019-12-07 09:57] VITALS: O2SAT 98
== END 2019-12-07 11:40 | disposition home or self-care (01) | DRG 746 ==
LOC: ED 13:41 → MED SURG 18:10
PROVIDERS: ADMIT Family Medicine; ATTEND Family Medicine
PROC: 0U9MX0Z Drainage of Vulva with Drainage Device, External Approach (ICD-10-PCS; principal; 2019-12-05)
DX: N76.4 Abscess of vulva (principal); K61.1 Rectal abscess; L02.31 Cutaneous abscess of buttock; E87.6 Hypokalemia; Z79.899 Other long term (current) drug therapy
CPT/HCPCS: 36000; 36410; 36415; 74177; 76942; 80048; 80053; 80202; 81025; 83605; 83735; 85025; 87040; 87070; 87077; 87186; 94760; 94762; 96360; 96365; 96367; 96374; 96375; 99285; J0696; J1100; J1170; J1200; J1650; J2270; J2405; J2704; J3370; J3480; A9270-GY

== ENCOUNTER 2020-05-06 19:22 | Inpatient (IN) | payer OTHER ==
--- NOTE | 2020-05-06 19:29 | ERPHSYRPT ---
- History of Present Illness Time Seen by Provider: 05/06/20 19:29 Source: patient, family Exam Limitations: no limitations Physician History: This is a 39-year-old white female who has a history anxiety and methamphetamine abuse history. She has chronic gastrointestinal issues as well as a history of meningitis. In November 2019 she was admitted in the hospital to treat perineal cellulitis. The results of the cultures taken of that abscess drainage was positive for methicillin-resistant staph aureus. She was treated with vancomycin and Rocephin. Since November 2019, the patient states that she just has not felt right. She has been weak. Patient states that she has been free and cleaned of illicit drug use until today where she said she smoked 1 hit off of methamphetamine pipe. She stated she wanted to help the pain that is present for several days on her left leg. Patient states that she applied Vicks ointment to the left inner thigh. Patient is allergic to tramadol. Patient continues to smoke cigarettes daily. She is not on any medications. She denies alcohol use. Timing/Duration: day(s) (6 days she thinks) Quality: burning, painful Severity: moderate Location: extremities (Left upper leg medial aspect.) Possible Causes: no cause identified Associated Symptoms: blisters, change in skin texture Allergies/Adverse Reactions: tramadol Adverse Reaction (Unknown, Verified 05/06/20 19:27) "I DON'T LIKE IT" Home Medications: No Reportable Medications [No Reported Medications] 05/06/20 [History] Hx Tetanus, Diphtheria Vaccination/Date Given: Yes Hx Influenza Vaccination/Date Given: Yes Hx Pneumococcal Vaccination/Date Given: No Travel Risk - International Travel Have you traveled outside of the country in past 3 weeks: No - Coronavirus Screening Are you exhibiting any of the following symptoms?: No Close contact with a COVID-19 positive Pt in past 14-21 Days: No - Review of Systems Constitutional: Weakness Eyes: No Symptoms Ears, Nose, & Throat: No Symptoms Respiratory: No Symptoms Cardiac: No Symptoms Abdominal/Gastrointestinal: No Symptoms Genitourinary Symptoms: No Symptoms Musculoskeletal: No Symptoms Skin: Cellulitis Neurological: No Symptoms Psychological: No Symptoms Endocrine: No Symptoms Hematologic/Lymphatic: No Symptoms Immunological/Allergic: No Symptoms All Other Systems: Reviewed and Negative - Past Medical History Pertinent Past Medical History: Yes Neurological History: No Pertinent History ENT History: No Pertinent History Cardiac History: Arrhythmia Respiratory History: Pneumonia Endocrine Medical History: No Pertinent History Musculoskeletal History: No Pertinent History GI Medical History: No Pertinent History History: No Pertinent History Psycho-Social History: Anxiety Female Reproductive Disorders: No Pertinent History Other Medical History: PT STATES THAT SHE IS SUPPOSED TO SEE A GI SPECIALIST BERFORE THE COVID IN AUGUST HAS NOT BEEN SEEN IN REGARDS TO HER NEW FOUND GI PROBLEMS PT THOUGHT THAT SHE WAS HAVING THE FLU WITH DIARRHEA BODY ACHES AND WAS TESTED BUT DIDN'T HAVE THE FLU BUT PT IS GOING TO BE CALLING TO HOPFULLY GET TO SEE THE GI SPECIALIST - Past Surgical History Past Surgical History: Yes Neuro Surgical History: No Pertinent History Cardiac: No Pertinent History Respiratory: No Pertinent History Gastrointestinal: No Pertinent History Musculoskeletal: No Pertinent History Female Surgical History: Tubal Ligation Other Surgical History: TUBES IN EARS AND TUBAL. MENIGITIS 2005. BLOOD TRANSFUSION 2005 - Social History Smoking Status: Current every day smoker How long have you smoked: 25 YEARS Exposure to second hand smoke: Yes Drug Use: methamphetamines Patient Lives Alone: No - Nursing Vital Signs Nursing Vital Signs: Initial Vital Signs Temperature 98.3 F 05/06/20 19:22 Pulse Rate 122 H 05/06/20 19:22 Respiratory Rate 20 05/06/20 19:22 Blood Pressure 138/86 05/06/20 19:22 O2 Sat by Pulse Oximetry 100 05/06/20 19:22 Pain Scale Pain Intensity 6 - Physical Exam General Appearance: moderate distress, alert, anxiety Eye Exam: PERRL/EOMI, eyes nml inspection Ears, Nose, Throat Exam: normal ENT inspection, moist mucous membranes Neck Exam: normal inspection, non-tender, supple, full range of motion Respiratory Exam: normal breath sounds, lungs clear, airway intact, No chest tenderness, No respiratory distress Cardiovascular Exam: tachycardia Gastrointestinal/Abdomen Exam: soft, normal bowel sounds, No tenderness Pelvic Exam: not done Rectal Exam: not done Back Exam: normal inspection, normal range of motion, CVA tenderness Extremity Exam: normal range of motion, pelvis stable, tenderness (With significant cellulitis in the upper left thigh medial aspect with blistering on the medial aspect. There is also some redness in the medial aspect of the patient's right thigh.) Neurologic Exam: alert, oriented x 3, cooperative, electro mechanical technologist II-XII nml as tested, confusion (Mildly) Skin Exam: other (Cellulitis and warmth in the distribution is described above on the extremity exam portion) Lymphatic Exam: adenopathy (Left inguinal), inguinal node tender (L) SpO2 Interpretation: normal O2 Delivery: Room Air - Course Nursing assessment & vital signs reviewed: Yes Ordered Tests: Active Orders 24 hr Category Date Time Status IV Insertion STAT Care 05/06/20 19:45 Active Pulse Oximetry (ED) STAT Care 05/06/20 19:45 Active BLOOD CULTURE Stat Lab 05/06/20 20:50 Received CBC W DIFF Stat Lab 05/06/20 20:08 Completed CMP Stat Lab 05/06/20 20:08 Completed CULTURE,URINE Stat Lab 05/06/20 21:24 Received CULTURE,WOUND Stat Lab 05/06/20 21:21 Received Lactic Acid Stat Lab 05/06/20 20:05 Completed Lactic Acid Stat Lab 05/06/20 22:13 Received Manual Differential NC Stat Lab 05/06/20 20:08 Completed PROCALCITONIN Stat Lab 05/06/20 20:00 Received UA W/RFX UR CULTURE Stat Lab 05/06/20 21:24 Completed Urine Triage Profile Stat Lab 05/06/20 21:24 Received Transfer Order Routine Transfer 05/06/20 Ordered Medication Summary Generic Name Dose Route Start Last Admin Trade Name Freq PRN Reason Stop Dose Admin Sodium Chloride 1,000 mls @ 999 mls/hr 05/06/20 22:36 Sodium Chloride 0.9% 1000 Ml IV 05/06/20 23:36 .Q1H1M STA Discontinued Medications Generic Name Dose Route Start Last Admin Trade Name Freq PRN Reason Stop Dose Admin Sodium Chloride 1,000 mls @ 999 mls/hr 05/06/20 19:45 05/06/20 22:23 Sodium Chloride 0.9% 1000 Ml IV 05/06/20 20:45 Infused .Q1H1M STA Infusion Sodium Chloride Confirm 05/06/20 19:50 Sodium Chloride 0.9% 1000 Ml Administered 05/06/20 19:51 Dose 1,000 mls @ ud .ROUTE .STK-MED ONE Vancomycin HCl 1 gm in 200 mls @ 125 mls/hr 05/06/20 20:48 05/06/20 20:53 Vancomycin 1 Gram/200 Ml Bag IV 05/06/20 22:23 125 ml/hr STAT ONE 125 mls/hr Administration Vancomycin HCl Confirm 05/06/20 20:50 Vancomycin 1 Gram/200 Ml Bag Administered 05/06/20 20:51 Dose 1 gm in 200 mls @ ud IV .STK-MED ONE Ondansetron HCl 4 mg 05/06/20 19:45 05/06/20 19:52 Zofran 4 Mg/2 Ml Vial IV 05/06/20 19:46 4 mg STAT STA Administration Ondansetron HCl Confirm 05/06/20 19:50 Zofran 4 Mg/2 Ml Vial Administered 05/06/20 19:51 Dose 4 mg .ROUTE .STK-MED ONE Lab/Rad Data: Laboratory Result Diagrams 05/06/20 20:08 05/06/20 20:08 Laboratory Results 05/06/20 05/06/20 05/06/20 Range/Units 21:24 20:08 20:08 WBC 38.4 H* (4.0-10.5) K/mm3 RBC 4.08 L (4.1-5.4) M/mm3 Hgb 10.8 L (12.0-16.0) gm/dl Hct 32.8 L (35-47) % MCV 80.4 (78-100) fl MCH 26.5 (26-32) pg MCHC 32.9 (32-36) g/dl RDW 14.9 H (11.5-14.0) % Plt Count 472 H (150-450) K/mm3 MPV 9.1 (7.5-11.0) fl Segmented Neutrophils 73 H (36.0-66.0) % Band Neutrophils 16 H (0.0-2.0) % Lymphocytes (Manual) 7 L (24-44) % Monocytes (Manual) 4 (0.0-12.0) % Dohle Bodies 1+ Platelet Estimate NORMAL (NORMAL) RBC Morphology NORMAL Sodium 131 L (137-145) mmol/L Potassium 3.4 L (3.5-5.1) mmol/L Chloride 101 (98-107) mmol/L Carbon Dioxide 22 (22-30) mmol/L Anion Gap 11.1 (5-15) MEQ/L BUN 13 (7-17) mg/dL Creatinine 0.73 (0.52-1.04) mg/dL Estimated GFR > 60.0 ML/MIN Glucose 134 H (74-106) mg/dL Lactic Acid (0.4-2.0) Calcium 8.0 L (8.4-10.2) mg/dL Total Bilirubin 0.50 (0.2-1.3) mg/dL AST 24 (14-36) U/L ALT 22 (0-35) U/L Alkaline Phosphatase 221 H (38-126) U/L Serum Total Protein 6.2 L (6.3-8.2) g/dL Albumin 2.9 L (3.5-5.0) g/dL Urine Color MARCK (YELLOW) Urine Appearance CLOUDY (CLEAR) Urine pH 5.0 (5-6) Ur Specific [place] 1.024 (1.005-1.025) Urine Protein 100 (Negative) Urine Ketones NEGATIVE (NEGATIVE) Urine Blood SMALL (0-5) Jordi/ul Urine Nitrite NEGATIVE (NEGATIVE) Urine Bilirubin SMALL (NEGATIVE) Urine Urobilinogen 4 (0-1) mg/dL Ur Leukocyte Esterase NEGATIVE (NEGATIVE) Urine WBC (Auto) 0-2 (0-5) /HPF Urine RBC (Auto) NONE SEEN (0-2) /HPF U Epithel Cells (Auto) NONE (FEW) /HPF Urine Bacteria (Auto) FEW (NEGATIVE) /HPF Urine Mucus (Auto) SLIGHT (NEGATIVE) /HPF Urine Culture Reflexed YES (NO) Urine Glucose NEGATIVE (NEGATIVE) mg/dL 05/06/20 Range/Units 20:05 WBC (4.0-10.5) K/mm3 RBC (4.1-5.4) M/mm3 Hgb (12.0-16.0) gm/dl Hct (35-47) % MCV (78-100) fl MCH (26-32) pg MCHC (32-36) g/dl RDW (11.5-14.0) % Plt Count (150-450) K/mm3 MPV (7.5-11.0) fl Segmented Neutrophils (36.0-66.0) % Band Neutrophils (0.0-2.0) % Lymphocytes (Manual) (24-44) % Monocytes (Manual) (0.0-12.0) % Dohle Bodies Platelet Estimate (NORMAL) RBC Morphology Sodium (137-145) mmol/L Potassium (3.5-5.1) mmol/L Chloride (98-107) mmol/L Carbon Dioxide (22-30) mmol/L Anion Gap (5-15) MEQ/L BUN (7-17) mg/dL Creatinine (0.52-1.04) mg/dL Estimated GFR ML/MIN Glucose (74-106) mg/dL Lactic Acid 2.2 H (0.4-2.0) Calcium (8.4-10.2) mg/dL Total Bilirubin (0.2-1.3) mg/dL AST (14-36) U/L ALT (0-35) U/L Alkaline Phosphatase (38-126) U/L Serum Total Protein (6.3-8.2) g/dL Albumin (3.5-5.0) g/dL Urine Color (YELLOW) Urine Appearance (CLEAR) Urine pH (5-6) Ur Specific [place] (1.005-1.025) Urine Protein (Negative) Urine Ketones (NEGATIVE) Urine Blood (0-5) Jordi/ul Urine Nitrite (NEGATIVE) Urine Bilirubin (NEGATIVE) Urine Urobilinogen (0-1) mg/dL Ur Leukocyte Esterase (NEGATIVE) Urine WBC (Auto) (0-5) /HPF Urine RBC (Auto) (0-2) /HPF U Epithel Cells (Auto) (FEW) /HPF Urine Bacteria (Auto) (NEGATIVE) /HPF Urine Mucus (Auto) (NEGATIVE) /HPF Urine Culture Reflexed (NO) Urine Glucose (NEGATIVE) mg/dL - Progress Progress: improved, pain not gone completely, re-examined Progress Note: 05/06/20 22:27 I reviewed the patient history, condition, laboratory findings with Dr. Larkin who is hospitalist on-call for no doctor. He accepts the patient for admission into the hospital. The patient has cellulitis with sepsis and he would like a procalcitonin ordered. He agrees with starting vancomycin and Rocephin since his helped her condition 5 months ago. The change in the add-on therapy will be based on the culture results. Discussed with : Guillaume Counseled pt/family regarding: lab results, diagnosis - Departure Departure Disposition: In-patient Admission Clinical Impression: Cellulitis, Sepsis Condition: Stable Critical Care Time: Yes Critical Care Time(excluding separately billable procedures): Critical 30-74 mins Referrals: DOCTOR,NO FAMILY [Primary Care Provider] -
[2020-05-06] MEDS ORDERED: Zofran 4 MG/2 ML VIAL IV STA (19:45)
[2020-05-06] MEDS ORDERED: Sodium Chloride 0.9% 1000 ML 1,000 ML IV STA ×2 (19:45→22:36)
[2020-05-06] MEDS ORDERED: Zofran 4 MG/2 ML VIAL ONE (19:50)
[2020-05-06] MEDS ORDERED: Sodium Chloride 0.9% 1000 ML 1,000 ML ONE ×2 (19:50→22:41)
[2020-05-06 20:25] LABS: Hematocrit 32.8 % (35-47); Hemoglobin 10.8 gm/dl (12.0-16.0); Mean Cell Volume 80.4 fl (78-100); Mean Corpuscular Hemoglobin 26.5 pg (26-32); Mean Corpuscular Hgb Concent. 32.9 g/dl (32-36); Mean Platelet Volume 9.1 fl (7.5-11.0); Platelet Count 472 K/mm3 (150-450); Red Blood Count 4.08 M/mm3 (4.1-5.4); Red Cell Distribution Width 14.9 % (11.5-14.0)
[2020-05-06 20:26] LABS: White Blood Count 38.4 K/mm3 (4.0-10.5)
[2020-05-06 20:30] LABS: ALBUMIN 2.9 g/dL (3.5-5.0); ALKALINE PHOSPHATASE 221 U/L (38-126); ANION GAP 11.1 MEQ/L (5-15); BLOOD UREA NITROGEN 13 mg/dL (7-17); CHLORIDE 101 mmol/L (98-107); Carbon Dioxide 22 mmol/L (22-30); Creatinine 1 0.73 mg/dL (0.52-1.04); EST GLOMERULAR FILTRATION RATE > 60.0 ML/MIN; Glucose 134 mg/dL (74-106); Potassium 3.4 mmol/L (3.5-5.1); SGOT/AST 24 U/L (14-36); SGPT/ALT 22 U/L (0-35); SODIUM 131 mmol/L (137-145); Total Protein 6.2 g/dL (6.3-8.2)
[2020-05-06] MEDS ORDERED: VANCOMYCIN 1 GRAM/200 ML BAG 1 GM/200 ML PIGGYBACK IV ONE ×2 (20:48→20:50)
[2020-05-06 21:17] LABS: BAND 16 % (0.0-2.0); Lymphocytes 7 % (24-44); Monocyte 4 % (0.0-12.0); Neutrophils 73 % (36.0-66.0); Platelet Estimate NORMAL (NORMAL); Total Cells Counted 100
[2020-05-06 21:18] LABS: Dohle Bodies 1+
[2020-05-06 21:39] LABS: Appearance CLOUDY (CLEAR); Bacteria FEW /HPF (NEGATIVE); Bilirubin SMALL (NEGATIVE); Blood SMALL Ery/ul (0-5); Glucose NEGATIVE (NEGATIVE); Ketones NEGATIVE (NEGATIVE); Leukocyte Esterase NEGATIVE (NEGATIVE); Mucus SLIGHT /HPF (NEGATIVE); Nitrite NEGATIVE (NEGATIVE); Protein,Urine Dip 100 (Negative); Specific Gravity 1.024 (1.005-1.025); Urobilinogen 4 mg/dL (0-1); WBC 0-2 /HPF (0-5)
[2020-05-06 21:40] LABS: RBC NONE SEEN /HPF (0-2)
[2020-05-06 22:23] LABS: Opiate,Urine POSITIVE (NEGATIVE)
[2020-05-06] MEDS ORDERED: Hydromorphone 1 mg/ml Injection IV ONE (22:39)
[2020-05-06] MEDS ORDERED: Hydromorphone 1 mg/ml Injection ONE (22:41)
[2020-05-06 22:57] LABS: Barbiturate,Urine NEGATIVE (NEGATIVE); Benzodiazepine,Urine POSITIVE (NEGATIVE); Cocaine,Urine NEGATIVE (NEGATIVE); Methadone,Urine NEGATIVE (NEGATIVE); PCP,Urine NEGATIVE (NEGATIVE); THC,Urine NEGATIVE (NEGATIVE)
[2020-05-06] MEDS ORDERED: Zofran 4 MG/2 ML VIAL IV PRN (23:02)
[2020-05-06] MEDS ORDERED: VANCOMYCIN 1 GRAM/200 ML BAG 1 GM/200 ML PIGGYBACK IV SCH (23:02)
[2020-05-06] MEDS ORDERED: TYLENOL 325 MG PO PRN (23:02)
[2020-05-06 23:30] LABS: Amphetamine,Urine POSITIVE (NEGATIVE)
[2020-05-07] MEDS: Sodium Chloride 0.9% 1000 ML 1,000 ML IV SCH ×3 (00:52→18:57)
[2020-05-07 01:10] LABS: Campylobacter NEGATIVE (NEGATIVE)
[2020-05-07 01:12] LABS: Adenovirus F 40/41 NEGATIVE (NEGATIVE); Astrovirus NEGATIVE (NEGATIVE); C. Difficile Organism POSITIVE (NEGATIVE); Cryptosporidium NEGATIVE (NEGATIVE); Cyclospora cayentanensis NEGATIVE (NEGATIVE); Entamoeaba histolytica NEGATIVE (NEGATIVE); Enteroaggregative E.coli NEGATIVE (NEGATIVE); Enteropathogenic E.coli NEGATIVE (NEGATIVE); Enterotoxigenic E.coli NEGATIVE (NEGATIVE); Giardia lamblia NEGATIVE (NEGATIVE); Norovirus GI/GII NEGATIVE (NEGATIVE); Plesiomonas shigelloides NEGATIVE (NEGATIVE); Rotavirus A NEGATIVE (NEGATIVE); Salmonella NEGATIVE (NEGATIVE); Sapovirus NEGATIVE (NEGATIVE); Shiga-like toxin prod.E.coli NEGATIVE (NEGATIVE); Vibrio NEGATIVE (NEGATIVE); Vibrio cholerae NEGATIVE (NEGATIVE); Yersinia enterocolitica NEGATIVE (NEGATIVE)
[2020-05-07] MEDS ORDERED: ZINC OXIDE OINTMENT 30 GM TP PRN (03:52)
[2020-05-07] MEDS ORDERED: PHARMACY DOSING REQUIRED: VANCOMYCIN MC ONE (07:45)
[2020-05-07] MEDS: VANCOMYCIN 1.5 GRAM/300 ML BAG 1.5 GM/300 ML PIGGYBACK IV SCH ×2 (08:56→19:56)
[2020-05-07] MEDS ORDERED: FLUZONE QUAD 2020-2021 SYRINGE IM ONE ×2 (10:00→17:50)
[2020-05-07] MEDS: ROCEPHIN 1 Gm-D5w 50 ml Bag** 1 G/50 ML IVPB IV SCH (10:47)
--- NOTE | 2020-05-07 11:01 | PCM.HP ---
History of Present Illness - Chief Complaint Chief Complaint: Sepsis/Cellulitis Date: 05/07/20 History of Present Illness: is a 39 year old female. Presented with worsening reddness and swelling of the right thigh over the past few days, pt. notes painful to move the leg, she has not noted any fever, today she is very drowsy for uncertain etiology. - Review of Systems Constitutional: No Symptoms Eyes: No Symptoms Ears, Nose, & Throat: No Symptoms Respiratory: No Symptoms Cardiac: No Symptoms Abdominal/Gastrointestinal: No Symptoms Genitourinary Symptoms: No Symptoms Musculoskeletal: Arthralgias Skin: Cellulitis Neurological: No Symptoms Psychological: No Symptoms Endocrine: No Symptoms Medications & Allergies Home Medications: Home Medication List No Reportable Medications [No Reported Medications] 05/06/20 [History Confirmed 05/06/20] Allergies/Adverse Reactions: Allergies Allergy/AdvReac Type Severity Reaction Status Date / Time tramadol AdvReac Unknown "I DON'T Verified 05/06/20 19:27 LIKE IT" - Past Medical History Past Medical History: Yes Neurological History: No Pertinent History ENT History: No Pertinent History Cardiac History: Arrhythmia Respiratory History: Pneumonia Endocrine Medical History: No Pertinent History Musculoskelatal History: No Pertinent History GI Medical History: No Pertinent History History: No Pertinent History Pyscho-Social History: Anxiety Reproductive Disorders: No Pertinent History Comment: PT STATES THAT SHE IS SUPPOSED TO SEE A GI SPECIALIST BERFORE THE COVID IN AUGUST HAS NOT BEEN SEEN IN REGARDS TO HER NEW FOUND GI PROBLEMS PT THOUGHT THAT SHE WAS HAVING THE FLU WITH DIARRHEA BODY ACHES AND WAS TESTED BUT DIDN'T HAVE THE FLU BUT PT IS GOING TO BE CALLING TO HOPFULLY GET TO SEE THE GI SPECIALIST. PT FEELS THAT SHE HAS CROHNS DISEASE - Female History Are you now?: No - Past Surgical History Past Surgical History: Yes Neuro Surgical History: No Pertinent History Cardiac History: No Pertinent History Respiratory Surgery: No Pertinent History GI Surgical History: No Pertinent History Musculskeletal Surgical Hx: No Pertinent History Female Surgical History: Tubal Ligation Other Surgical History: TUBES IN EARS AND TUBAL. MENIGITIS 2005. BLOOD TRANSFUSION 2005 - Social History Smoking Status: Current every day smoker How long have you smoked: unable Exposure to second hand smoke: Yes Alcohol: None Drug Use: methamphetamines - Physical Exam Vital Signs: Vital Signs - 24 hr Temp Pulse Resp BP Pulse Ox 05/07/20 10:48 96 05/07/20 08:00 98.8 F 24 111/58 05/07/20 04:00 99.5 F 112 H 18 99/55 96 05/07/20 00:10 97.9 F 103 H 20 100/55 97 05/06/20 23:02 97 05/06/20 22:00 112 H 18 124/87 99 05/06/20 21:10 110 H 18 124/76 98 05/06/20 20:22 112 H 16 107/71 100 05/06/20 19:49 96 05/06/20 19:22 98.3 F 122 H 20 138/86 96 General Appearance: no apparent distress, lethargy Neurologic Exam: cooperative, normal mood/affect Eye Exam: eyes nml inspection Ears, Nose, Throat Exam: normal ENT inspection Neck Exam: normal inspection Respiratory Exam: normal breath sounds, lungs clear, No chest tenderness Cardiovascular Exam: regular rate/rhythm, normal heart sounds, normal peripheral pulses Gastrointestinal/Abdomen Exam: soft, normal bowel sounds, No tenderness, No distention, No mass Pelvic Exam: not done Rectal Exam: deferred (redness and swelling noted to the inner right thigh with several blistered areas) Wound Assessment: Skin/Wound Assessment Wound/Incision Assessment Start: 05/06/20 23: 00 Text: Status: Active Freq: Q6H Protocol: Document 05/07/20 02:00 KX (Rec: 05/07/20 02:20 KX [id number]) Wound/Incision Assessment Left Upper Medial Thigh Wound Assessment Admission Wound Type Burn Wound Stage Non Pressure Wound Drainage Amount None General Appearance Open to air Comment 2 blisters noted to thigh with outline where pain patch had been placed. entire upper thigh red and redness extends to abdifatah area and up onto mons pubis with swelling and hard area noted to labia and mons pubis. Wound Photo Photo Taken No Results - Labs Lab/Micro Results: Lab Results-Last 24 Hours 05/06/20 05/06/20 05/06/20 Range/Units 20:00 20:05 20:08 WBC 38.4 H* (4.0-10.5) K/mm3 RBC 4.08 L (4.1-5.4) M/mm3 Hgb 10.8 L (12.0-16.0) gm/dl Hct 32.8 L (35-47) % MCV 80.4 (78-100) fl MCH 26.5 (26-32) pg MCHC 32.9 (32-36) g/dl RDW 14.9 H (11.5-14.0) % Plt Count 472 H (150-450) K/mm3 MPV 9.1 (7.5-11.0) fl Segmented Neutrophils 73 H (36.0-66.0) % Band Neutrophils 16 H (0.0-2.0) % Lymphocytes (Manual) 7 L (24-44) % Monocytes (Manual) 4 (0.0-12.0) % Dohle Bodies 1+ Platelet Estimate NORMAL (NORMAL) RBC Morphology NORMAL Sodium (137-145) mmol/L Potassium (3.5-5.1) mmol/L Chloride (98-107) mmol/L Carbon Dioxide (22-30) mmol/L Anion Gap (5-15) MEQ/L BUN (7-17) mg/dL Creatinine (0.52-1.04) mg/dL Estimated GFR ML/MIN Glucose (74-106) mg/dL Lactic Acid 2.2 H (0.4-2.0) Calcium (8.4-10.2) mg/dL Total Bilirubin (0.2-1.3) mg/dL AST (14-36) U/L ALT (0-35) U/L Alkaline Phosphatase (38-126) U/L Serum Total Protein (6.3-8.2) g/dL Albumin (3.5-5.0) g/dL Procalcitonin 0.699 H (0.030-0.080) ng/mL Urine Color (YELLOW) Urine Appearance (CLEAR) Urine pH (5-6) Ur Specific [place] (1.005-1.025) Urine Protein (Negative) Urine Ketones (NEGATIVE) Urine Blood (0-5) Jordi/ul Urine Nitrite (NEGATIVE) Urine Bilirubin (NEGATIVE) Urine Urobilinogen (0-1) mg/dL Ur Leukocyte Esterase (NEGATIVE) Urine WBC (Auto) (0-5) /HPF Urine RBC (Auto) (0-2) /HPF U Epithel Cells (Auto) (FEW) /HPF Urine Bacteria (Auto) (NEGATIVE) /HPF Urine Mucus (Auto) (NEGATIVE) /HPF Urine Culture Reflexed (NO) Urine Glucose (NEGATIVE) mg/dL Stl C. cayetanensis PCR (NEGATIVE) Stl Adenov F 40/41 PCR (NEGATIVE) Stool Astrovirus (PCR) (NEGATIVE) Stool Cryptosporidium PCR (NEGATIVE) Stool EPEC (PCR) (NEGATIVE) Stool EAEC (PCR) (NEGATIVE) Stl E. histolytica PCR (NEGATIVE) Stl P. shigelloides PCR (NEGATIVE) Stool Sapovirus (PCR) (NEGATIVE) St Y.enterocolitica PCR (NEGATIVE) Stool Vibrio (PCR) (NEGATIVE) Stl Vibrio cholerae PCR (NEGATIVE) Stl Norovirus GI/GII PCR (NEGATIVE) Urine Opiates Level (NEGATIVE) Ur Methadone (NEGATIVE) Urine Barbiturates (NEGATIVE) Ur Phencyclidine (PCP) (NEGATIVE) Urine Amphetamine (NEGATIVE) U Benzodiazepine Level (NEGATIVE) Urine Cocaine (NEGATIVE) Urine Marijuana (THC) (NEGATIVE) Campylobacter (PCR) (NEGATIVE) C. difficile (PCR) (NEGATIVE) Enterotoxigenic E. coli (NEGATIVE) E.coli Shiga Toxins (NEGATIVE) Giardia lamblia (NEGATIVE) Rotavirus A (PCR) (NEGATIVE) Salmonella (PCR) (NEGATIVE) Shigella (PCR) (NEGATIVE) 05/06/20 05/06/20 05/06/20 Range/Units 20:08 21:24 21:24 WBC (4.0-10.5) K/mm3 RBC (4.1-5.4) M/mm3 Hgb (12.0-16.0) gm/dl Hct (35-47) % MCV (78-100) fl MCH (26-32) pg MCHC (32-36) g/dl RDW (11.5-14.0) % Plt Count (150-450) K/mm3 MPV (7.5-11.0) fl Segmented Neutrophils (36.0-66.0) % Band Neutrophils (0.0-2.0) % Lymphocytes (Manual) (24-44) % Monocytes (Manual) (0.0-12.0) % Dohle Bodies Platelet Estimate (NORMAL) RBC Morphology Sodium 131 L (137-145) mmol/L Potassium 3.4 L (3.5-5.1) mmol/L Chloride 101 (98-107) mmol/L Carbon Dioxide 22 (22-30) mmol/L Anion Gap 11.1 (5-15) MEQ/L BUN 13 (7-17) mg/dL Creatinine 0.73 (0.52-1.04) mg/dL Estimated GFR > 60.0 ML/MIN Glucose 134 H (74-106) mg/dL Lactic Acid (0.4-2.0) Calcium 8.0 L (8.4-10.2) mg/dL Total Bilirubin 0.50 (0.2-1.3) mg/dL AST 24 (14-36) U/L ALT 22 (0-35) U/L Alkaline Phosphatase 221 H (38-126) U/L Serum Total Protein 6.2 L (6.3-8.2) g/dL Albumin 2.9 L (3.5-5.0) g/dL Procalcitonin (0.030-0.080) ng/mL Urine Color MARCK (YELLOW) Urine Appearance CLOUDY (CLEAR) Urine pH 5.0 (5-6) Ur Specific [place] 1.024 (1.005-1.025) Urine Protein 100 (Negative) Urine Ketones NEGATIVE (NEGATIVE) Urine Blood SMALL (0-5) Jordi/ul Urine Nitrite NEGATIVE (NEGATIVE) Urine Bilirubin SMALL (NEGATIVE) Urine Urobilinogen 4 (0-1) mg/dL Ur Leukocyte Esterase NEGATIVE (NEGATIVE) Urine WBC (Auto) 0-2 (0-5) /HPF Urine RBC (Auto) NONE SEEN (0-2) /HPF U Epithel Cells (Auto) NONE (FEW) /HPF Urine Bacteria (Auto) FEW (NEGATIVE) /HPF Urine Mucus (Auto) SLIGHT (NEGATIVE) /HPF Urine Culture Reflexed YES (NO) Urine Glucose NEGATIVE (NEGATIVE) mg/dL Stl C. cayetanensis PCR (NEGATIVE) Stl Adenov F 40/41 PCR (NEGATIVE) Stool Astrovirus (PCR) (NEGATIVE) Stool Cryptosporidium PCR (NEGATIVE) Stool EPEC (PCR) (NEGATIVE) Stool EAEC (PCR) (NEGATIVE) Stl E. histolytica PCR (NEGATIVE) Stl P. shigelloides PCR (NEGATIVE) Stool Sapovirus (PCR) (NEGATIVE) St Y.enterocolitica PCR (NEGATIVE) Stool Vibrio (PCR) (NEGATIVE) Stl Vibrio cholerae PCR (NEGATIVE) Stl Norovirus GI/GII PCR (NEGATIVE) Urine Opiates Level POSITIVE (NEGATIVE) Ur Methadone NEGATIVE (NEGATIVE) Urine Barbiturates NEGATIVE (NEGATIVE) Ur Phencyclidine (PCP) NEGATIVE (NEGATIVE) Urine Amphetamine POSITIVE (NEGATIVE) U Benzodiazepine Level POSITIVE (NEGATIVE) Urine Cocaine NEGATIVE (NEGATIVE) Urine Marijuana (THC) NEGATIVE (NEGATIVE) Campylobacter (PCR) (NEGATIVE) C. difficile (PCR) (NEGATIVE) Enterotoxigenic E. coli (NEGATIVE) E.coli Shiga Toxins (NEGATIVE) Giardia lamblia (NEGATIVE) Rotavirus A (PCR) (NEGATIVE) Salmonella (PCR) (NEGATIVE) Shigella (PCR) (NEGATIVE) 05/06/20 05/06/20 Range/Units 22:13 23:32 WBC (4.0-10.5) K/mm3 RBC (4.1-5.4) M/mm3 Hgb (12.0-16.0) gm/dl Hct (35-47) % MCV (78-100) fl MCH (26-32) pg MCHC (32-36) g/dl RDW (11.5-14.0) % Plt Count (150-450) K/mm3 MPV (7.5-11.0) fl Segmented Neutrophils (36.0-66.0) % Band Neutrophils (0.0-2.0) % Lymphocytes (Manual) (24-44) % Monocytes (Manual) (0.0-12.0) % Dohle Bodies Platelet Estimate (NORMAL) RBC Morphology Sodium (137-145) mmol/L Potassium (3.5-5.1) mmol/L Chloride (98-107) mmol/L Carbon Dioxide (22-30) mmol/L Anion Gap (5-15) MEQ/L BUN (7-17) mg/dL Creatinine (0.52-1.04) mg/dL Estimated GFR ML/MIN Glucose (74-106) mg/dL Lactic Acid 0.7 (0.4-2.0) Calcium (8.4-10.2) mg/dL Total Bilirubin (0.2-1.3) mg/dL AST (14-36) U/L ALT (0-35) U/L Alkaline Phosphatase (38-126) U/L Serum Total Protein (6.3-8.2) g/dL Albumin (3.5-5.0) g/dL Procalcitonin (0.030-0.080) ng/mL Urine Color (YELLOW) Urine Appearance (CLEAR) Urine pH (5-6) Ur Specific [place] (1.005-1.025) Urine Protein (Negative) Urine Ketones (NEGATIVE) Urine Blood (0-5) Jordi/ul Urine Nitrite (NEGATIVE) Urine Bilirubin (NEGATIVE) Urine Urobilinogen (0-1) mg/dL Ur Leukocyte Esterase (NEGATIVE) Urine WBC (Auto) (0-5) /HPF Urine RBC (Auto) (0-2) /HPF U Epithel Cells (Auto) (FEW) /HPF Urine Bacteria (Auto) (NEGATIVE) /HPF Urine Mucus (Auto) (NEGATIVE) /HPF Urine Culture Reflexed (NO) Urine Glucose (NEGATIVE) mg/dL Stl C. cayetanensis PCR NEGATIVE (NEGATIVE) Stl Adenov F 40/41 PCR NEGATIVE (NEGATIVE) Stool Astrovirus (PCR) NEGATIVE (NEGATIVE) Stool Cryptosporidium PCR NEGATIVE (NEGATIVE) Stool EPEC (PCR) NEGATIVE (NEGATIVE) Stool EAEC (PCR) NEGATIVE (NEGATIVE) Stl E. histolytica PCR NEGATIVE (NEGATIVE) Stl P. shigelloides PCR NEGATIVE (NEGATIVE) Stool Sapovirus (PCR) NEGATIVE (NEGATIVE) St Y.enterocolitica PCR NEGATIVE (NEGATIVE) Stool Vibrio (PCR) NEGATIVE (NEGATIVE) Stl Vibrio cholerae PCR NEGATIVE (NEGATIVE) Stl Norovirus GI/GII PCR NEGATIVE (NEGATIVE) Urine Opiates Level (NEGATIVE) Ur Methadone (NEGATIVE) Urine Barbiturates (NEGATIVE) Ur Phencyclidine (PCP) (NEGATIVE) Urine Amphetamine (NEGATIVE) U Benzodiazepine Level (NEGATIVE) Urine Cocaine (NEGATIVE) Urine Marijuana (THC) (NEGATIVE) Campylobacter (PCR) NEGATIVE (NEGATIVE) C. difficile (PCR) POSITIVE A (NEGATIVE) Enterotoxigenic E. coli NEGATIVE (NEGATIVE) E.coli Shiga Toxins NEGATIVE (NEGATIVE) Giardia lamblia NEGATIVE (NEGATIVE) Rotavirus A (PCR) NEGATIVE (NEGATIVE) Salmonella (PCR) NEGATIVE (NEGATIVE) Shigella (PCR) NEGATIVE (NEGATIVE) - Other Procedures and Tests Respiratory Therapy 05/07/20 10:34 Oxygen NASAL CANNULA 2 lpm Assessment/Plan (1) C. difficile enteritis Current Visit: Yes Status: Acute Assessment & Plan: cefepime and flagyl iv have been initiated. Code(s): A04.72 - ENTEROCOLITIS D/T CLOSTRIDIUM DIFFICILE, NOT SPCF RECUR (2) Cellulitis Current Visit: Yes Status: Acute Assessment & Plan: cefipime and iv vancomycin initiated. Code(s): L03.90 - CELLULITIS, UNSPECIFIED
[2020-05-07 11:29] LABS: ALBUMIN 2.4 g/dL (3.5-5.0); ALKALINE PHOSPHATASE 185 U/L (38-126); BLOOD UREA NITROGEN 7 mg/dL (7-17); CHLORIDE 105 mmol/L (98-107); Calcium 7.7 mg/dL (8.4-10.2); Carbon Dioxide 23 mmol/L (22-30); Creatinine 1 0.66 mg/dL (0.52-1.04); EST GLOMERULAR FILTRATION RATE > 60.0 ML/MIN; Glucose 96 mg/dL (74-106); Potassium 3.1 mmol/L (3.5-5.1); SGOT/AST 20 U/L (14-36); SGPT/ALT 16 U/L (0-35); SODIUM 132 mmol/L (137-145); Total Protein 5.5 g/dL (6.3-8.2)
[2020-05-07 11:30] LABS: Hematocrit 31.5 % (35-47); Hemoglobin 10.1 gm/dl (12.0-16.0); Mean Cell Volume 81.2 fl (78-100); Mean Corpuscular Hgb Concent. 32.1 g/dl (32-36); Platelet Count 459 K/mm3 (150-450); Red Blood Count 3.88 M/mm3 (4.1-5.4); Red Cell Distribution Width 15.1 % (11.5-14.0)
[2020-05-07 11:34] LABS: White Blood Count 34.6 K/mm3 (4.0-10.5)
[2020-05-07] MEDS: FLAGYL 500 MG IVPB 500 MG/100 ML BAG IV SCH ×3 (13:10→23:16)
[2020-05-07] MEDS: Hydromorphone 1 mg/ml Injection IV PRN ×3 (13:20→23:17)
[2020-05-07 15:01] LABS: ANISOCYTOSIS 1+; ATYPICAL LYMPHS 2 %; BAND 14 % (0.0-2.0); Eosinophil 1 % (0.00-3.0); Lymphocytes 5 % (24-44); Monocyte 5 % (0.0-12.0); Neutrophils 73 % (36.0-66.0); Total Cells Counted 100
[2020-05-07 15:02] LABS: Macrocytosis 1+; Platelet Estimate INCREASED (NORMAL); Poikilocytosis 1+; Toxic Granulation 1+
[2020-05-08] MEDS: Hydromorphone 1 mg/ml Injection IV PRN ×4 (03:16→21:08)
[2020-05-08] MEDS: FLAGYL 500 MG IVPB 500 MG/100 ML BAG IV SCH ×4 (05:15→23:13)
[2020-05-08] MEDS: Sodium Chloride 0.9% 1000 ML 1,000 ML IV SCH ×3 (05:15→16:52)
[2020-05-08 06:03] LABS: ANION GAP 8.5 MEQ/L (5-15); BLOOD UREA NITROGEN 6 mg/dL (7-17); CHLORIDE 105 mmol/L (98-107); Calcium 7.8 mg/dL (8.4-10.2); Carbon Dioxide 24 mmol/L (22-30); EST GLOMERULAR FILTRATION RATE > 60.0 ML/MIN; Glucose 95 mg/dL (74-106); SODIUM 135 mmol/L (137-145)
[2020-05-08 06:05] LABS: Hematocrit 29.8 % (35-47); Hemoglobin 9.4 gm/dl (12.0-16.0); Mean Cell Volume 81.9 fl (78-100); Mean Corpuscular Hemoglobin 25.8 pg (26-32); Mean Corpuscular Hgb Concent. 31.5 g/dl (32-36); Mean Platelet Volume 9.1 fl (7.5-11.0); Platelet Count 445 K/mm3 (150-450); Red Blood Count 3.64 M/mm3 (4.1-5.4); Red Cell Distribution Width 14.9 % (11.5-14.0)
[2020-05-08 06:06] LABS: White Blood Count 26.1 K/mm3 (4.0-10.5)
[2020-05-08 06:07] LABS: Potassium 2.6 mmol/L (3.5-5.1)
[2020-05-08] MEDS ORDERED: POTASSIUM CHLORIDE 20 mEq IN WATER 100ML 20 MEQ/100 ML BAG IV ONE (06:19)
[2020-05-08] MEDS ORDERED: Klor Con 10 MEQ PO ONE (06:19)
[2020-05-08] MEDS ORDERED: TROUGH DRUG LEVELS IJ ONE (07:30)
[2020-05-08 07:34] LABS: ANISOCYTOSIS 1+; BAND 9 % (0.0-2.0); Eosinophil 1 % (0.00-3.0); Lymphocytes 14 % (24-44); Microcytosis 1+; Monocyte 4 % (0.0-12.0); Neutrophils 72 % (36.0-66.0); Platelet Estimate NORMAL (NORMAL); Total Cells Counted 100; Toxic Granulation 1+
--- NOTE | 2020-05-08 09:30 | PCM.NOTE ---
Date and Time: 05/08/20927 Subjective Assessment: Pt. notes still having pain, but less than before, also notes less swelling and redness to the area. - Review of Systems Constitutional: No Symptoms Ears, Nose, & Throat: No Symptoms Respiratory: No Symptoms Cardiac: No Symptoms Abdominal/Gastrointestinal: No Symptoms Genitourinary Symptoms: No Symptoms Musculoskeletal: No Symptoms Skin: Cellulitis Objective Exam General Appearance: no apparent distress Neurologic Exam: alert Skin Exam: normal color (right thigh less red with less swelling noted) Wound Assessment: Skin/Wound Assessment Wound/Incision Assessment Start: 05/06/20 23:00 Text: Status: Active Freq: Q6H Protocol: Document 05/08/20 02:00 AW (Rec: 05/08/20 04:38 AW [id number]) Wound/Incision Assessment Left Arm Wound Assessment Shift Assessment Wound Type cellulitis Wound Stage Non Pressure Wound Drainage Description Serous Comment area in left arm pit swollen, red, with hard nodules noted; oozing small amount of serous drainage; open to air Left Upper Medial Thigh Wound Assessment Shift Assessment Wound Type cellulitis Wound Stage Non Pressure Wound Drainage Amount Minimal Drainage Description Serous General Appearance Open to air Comment 2 blisters noted to thigh with outline where pain patch had been placed. entire upper thigh red and redness extends to abdifatah area and up onto mons pubis with swelling and hard area noted to labia and mons pubis. Wound Photo Photo Taken No Eye Exam: PERRL, eyes nml inspection Ears, Nose, Throat Exam: normal ENT inspection Neck Exam: normal inspection, non-tender Lymphatic Exam: No adenopathy Respiratory Exam: normal breath sounds, lungs clear, No chest tenderness Cardiovascular Exam: regular rate/rhythm Gastrointestinal/Abdomen Exam: soft, normal bowel sounds OBJECTIVE DATA Vital Signs: Vital Signs - 24 hr Temp Pulse Resp BP BP Pulse Ox 05/08/20 07:56 99.6 F 94 H 24 110/67 94 L 05/08/20 03:30 98.1 F 96 H 18 107/63 98 05/08/20 00:00 98.6 F 105 H 18 124/82 95 05/07/20 23:03 95 05/07/20 20:00 98.8 F 105 H 18 115/61 96 05/07/20 16:00 99.9 F 100 H 18 129/80 98 05/07/20 12:00 100 F 68 20 117/70 97 05/07/20 10:48 96 Pain Assessment - Last Documented Pain Intensity 10 Pain Scale Used 0-10 Pain Scale Intake and Output: Intake & Output 05/05/20 05/06/20 05/07/20 05/08/20 11:59 11:59 11:59 11:59 Intake Total 240 4566 Balance 240 4566 Weight 93.4 kg Lab Results: Lab Results-Last 24 Hours 05/07/20 05/07/20 05/08/20 Range/Units 11:10 11:10 04:40 WBC 34.6 H* 26.1 H* (4.0-10.5) K/mm3 RBC 3.88 L 3.64 L (4.1-5.4) M/mm3 Hgb 10.1 L 9.4 L (12.0-16.0) gm/dl Hct 31.5 L 29.8 L (35-47) % MCV 81.2 81.9 (78-100) fl MCH 26.0 25.8 L (26-32) pg MCHC 32.1 31.5 L (32-36) g/dl RDW 15.1 H 14.9 H (11.5-14.0) % Plt Count 459 H 445 (150-450) K/mm3 MPV 9.0 9.1 (7.5-11.0) fl Segmented Neutrophils 73 H 72 H (36.0-66.0) % Band Neutrophils 14 H 9 H (0.0-2.0) % Lymphocytes (Manual) 5 L 14 L (24-44) % Monocytes (Manual) 5 4 (0.0-12.0) % Eosinophils (Manual) 1 1 (0.00-3.0) % Atypical Lymphocytes 2 % Toxic Granulation 1+ 1+ Platelet Estimate INCREASED NORMAL (NORMAL) RBC Morphology ABNORMAL ABNORMAL Poikilocytosis 1+ Anisocytosis 1+ 1+ Microcytosis 1+ Macrocytosis 1+ Smear Path Review Pending Sodium 132 L (137-145) mmol/L Potassium 3.1 L (3.5-5.1) mmol/L Chloride 105 (98-107) mmol/L Carbon Dioxide 23 (22-30) mmol/L Anion Gap 7.0 (5-15) MEQ/L BUN 7 (7-17) mg/dL Creatinine 0.66 (0.52-1.04) mg/dL Estimated GFR > 60.0 ML/MIN Glucose 96 (74-106) mg/dL Calcium 7.7 L (8.4-10.2) mg/dL Total Bilirubin 0.40 (0.2-1.3) mg/dL AST 20 (14-36) U/L ALT 16 (0-35) U/L Alkaline Phosphatase 185 H (38-126) U/L Serum Total Protein 5.5 L (6.3-8.2) g/dL Albumin 2.4 L (3.5-5.0) g/dL 05/08/20 Range/Units 04:40 WBC (4.0-10.5) K/mm3 RBC (4.1-5.4) M/mm3 Hgb (12.0-16.0) gm/dl Hct (35-47) % MCV (78-100) fl MCH (26-32) pg MCHC (32-36) g/dl RDW (11.5-14.0) % Plt Count (150-450) K/mm3 MPV (7.5-11.0) fl Segmented Neutrophils (36.0-66.0) % Band Neutrophils (0.0-2.0) % Lymphocytes (Manual) (24-44) % Monocytes (Manual) (0.0-12.0) % Eosinophils (Manual) (0.00-3.0) % Atypical Lymphocytes % Toxic Granulation Platelet Estimate (NORMAL) RBC Morphology Poikilocytosis Anisocytosis Microcytosis Macrocytosis Smear Path Review Sodium 135 L (137-145) mmol/L Potassium 2.6 L* (3.5-5.1) mmol/L Chloride 105 (98-107) mmol/L Carbon Dioxide 24 (22-30) mmol/L Anion Gap 8.5 (5-15) MEQ/L BUN 6 L (7-17) mg/dL Creatinine 0.70 (0.52-1.04) mg/dL Estimated GFR > 60.0 ML/MIN Glucose 95 (74-106) mg/dL Calcium 7.8 L (8.4-10.2) mg/dL Total Bilirubin (0.2-1.3) mg/dL AST (14-36) U/L ALT (0-35) U/L Alkaline Phosphatase (38-126) U/L Serum Total Protein (6.3-8.2) g/dL Albumin (3.5-5.0) g/dL Assessment/Plan (1) C. difficile enteritis Current Visit: Yes Status: Acute Assessment & Plan: on appropriate abx Code(s): A04.72 - ENTEROCOLITIS D/T CLOSTRIDIUM DIFFICILE, NOT SPCF RECUR (2) Cellulitis Current Visit: Yes Status: Acute Assessment & Plan: DVT prophylaxis, continue abx, wbc down to 26.1 Code(s): L03.90 - CELLULITIS, UNSPECIFIED
[2020-05-08] MEDS: VANCOMYCIN 1.5 GRAM/300 ML BAG 1.5 GM/300 ML PIGGYBACK IV SCH ×2 (11:05→19:54)
[2020-05-08] MEDS: ENOXAPARIN SODIUM SQ SCH ×3 (11:05→21:18)
[2020-05-08] MEDS: ROCEPHIN 1 Gm-D5w 50 ml Bag** 1 G/50 ML IVPB IV SCH (13:36)
[2020-05-09] MEDS: Hydromorphone 1 mg/ml Injection IV PRN ×2 (02:58→08:00)
[2020-05-09] MEDS: Sodium Chloride 0.9% 1000 ML 1,000 ML IV SCH (03:32)
[2020-05-09 05:25] LABS: Hematocrit 29.1 % (35-47); Hemoglobin 9.4 gm/dl (12.0-16.0); Mean Cell Volume 81.1 fl (78-100); Mean Corpuscular Hemoglobin 26.2 pg (26-32); Mean Corpuscular Hgb Concent. 32.3 g/dl (32-36); Mean Platelet Volume 8.8 fl (7.5-11.0); Platelet Count 449 K/mm3 (150-450); Red Blood Count 3.59 M/mm3 (4.1-5.4); White Blood Count 22.9 K/mm3 (4.0-10.5)
[2020-05-09 05:41] LABS: ANION GAP 6.8 MEQ/L (5-15); BLOOD UREA NITROGEN 5 mg/dL (7-17); CHLORIDE 105 mmol/L (98-107); Calcium 7.6 mg/dL (8.4-10.2); Carbon Dioxide 25 mmol/L (22-30); Creatinine 1 0.65 mg/dL (0.52-1.04); EST GLOMERULAR FILTRATION RATE > 60.0 ML/MIN; Glucose 90 mg/dL (74-106); SODIUM 135 mmol/L (137-145)
[2020-05-09] MEDS: FLAGYL 500 MG IVPB 500 MG/100 ML BAG IV SCH ×3 (05:49→17:37)
[2020-05-09 05:50] LABS: Potassium 2.9 mmol/L (3.5-5.1)
[2020-05-09] MEDS ORDERED: Klor Con 10 MEQ PO ONE (06:06)
[2020-05-09] MEDS ORDERED: POTASSIUM CHLORIDE 20 mEq IN WATER 100ML 20 MEQ/100 ML BAG IV ONE (06:08)
[2020-05-09 07:14] LABS: BAND 5 % (0.0-2.0); Lymphocytes 18 % (24-44); Monocyte 7 % (0.0-12.0); Neutrophils 70 % (36.0-66.0); Total Cells Counted 100
[2020-05-09 07:15] LABS: Platelet Estimate NORMAL (NORMAL)
[2020-05-09] MEDS: VANCOMYCIN 1.5 GRAM/300 ML BAG 1.5 GM/300 ML PIGGYBACK IV SCH ×2 (08:00→21:26)
--- NOTE | 2020-05-09 08:58 | PCM.NOTE ---
Date and Time: 05/09/20 0856 Subjective Assessment: Pt. notes feeling a little better this am, tired from not being able to get comfortable. - Review of Systems Constitutional: No Fever, No Chills Eyes: No Symptoms Ears, Nose, & Throat: No Symptoms Respiratory: No Cough, No Short Of Breath Cardiac: No Chest Pain, No Edema, No Syncope Abdominal/Gastrointestinal: No Abdominal Pain, No Nausea, No Vomiting, No Diarrhea Genitourinary Symptoms: No Dysuria Musculoskeletal: No Back Pain, No Neck Pain Skin: Cellulitis, No Rash Neurological: No Dizziness, No Focal Weakness, No Sensory Changes Psychological: No Symptoms Endocrine: No Symptoms Hematologic/Lymphatic: No Symptoms Immunological/Allergic: No Symptoms Objective Exam General Appearance: no apparent distress Neurologic Exam: cooperative Skin Exam: warm, dry (improving cellulitis) Wound Assessment: Skin/Wound Assessment Wound/Incision Assessment Start: 05/06/20 23:00 Text: Status: Active Freq: Q6H Protocol: Document 05/09/20 08:00 BSANTUS (Rec: 05/09/20 08:21 BSANTUS [id number]) Wound/Incision Assessment Left Arm Wound Assessment Shift Assessment Wound Type cellulitis Wound Stage Non Pressure Wound Drainage Amount None Comment area in left arm pit swollen, red, with hard nodules noted; open to air. remains true no change Left Upper Medial Thigh Wound Assessment Shift Assessment Wound Type cellulitis Wound Stage Non Pressure Wound Drainage Amount None General Appearance Open to air Surrounding Tissue Bright Red,Edematous Comment 2 blisters noted to thigh with outline where pain patch had been placed. entire upper thigh red and redness extends to abdifatah area and up onto mons pubis with swelling and hard area noted to labia and mons assessment is unchanged and barrier cream reapplied. Wound Photo Comment: upon admission Eye Exam: PERRL, EOMI, eyes nml inspection Ears, Nose, Throat Exam: normal ENT inspection Neck Exam: normal inspection Respiratory Exam: normal breath sounds, lungs clear, No chest tenderness Cardiovascular Exam: regular rate/rhythm, normal heart sounds Gastrointestinal/Abdomen Exam: soft Extremity Exam: normal inspection OBJECTIVE DATA Vital Signs: Vital Signs - 24 hr Temp Pulse Resp BP Pulse Ox 05/09/20 07:21 98.3 F 70 18 115/69 96 05/09/20 04:00 97.9 F 92 H 17 99/60 95 05/09/20 00:00 98.7 F 94 H 26 H 112/64 93 L 05/08/20 20:00 98.3 F 97 H 22 113/69 100 05/08/20 19:27 100 05/08/20 17:19 95 05/08/20 16:00 100.2 F 100 H 15 111/65 97 05/08/20 12:00 99.2 F 93 H 21 103/63 96 Pain Assessment - Last Documented Pain Intensity 8 Pain Scale Used [facility] Intake and Output: Intake & Output 05/06/20 05/07/20 05/08/20 05/09/20 11:59 11:59 11:59 11:59 Intake Total 240 4566 3872 Output Total 2450 Balance 240 4566 1422 Weight 93.4 kg 93.4 kg 91.7 kg Lab Results: Lab Results-Last 24 Hours 05/08/20 05/09/20 05/09/20 Range/Units 07:40 04:40 04:40 WBC 22.9 H (4.0-10.5) K/mm3 RBC 3.59 L (4.1-5.4) M/mm3 Hgb 9.4 L (12.0-16.0) gm/dl Hct 29.1 L (35-47) % MCV 81.1 (78-100) fl MCH 26.2 (26-32) pg MCHC 32.3 (32-36) g/dl RDW 15.0 H (11.5-14.0) % Plt Count 449 (150-450) K/mm3 MPV 8.8 (7.5-11.0) fl Segmented Neutrophils 70 H (36.0-66.0) % Band Neutrophils 5 H (0.0-2.0) % Lymphocytes (Manual) 18 L (24-44) % Monocytes (Manual) 7 (0.0-12.0) % Platelet Estimate NORMAL (NORMAL) RBC Morphology NORMAL Sodium 135 L (137-145) mmol/L Potassium 2.9 L* (3.5-5.1) mmol/L Chloride 105 (98-107) mmol/L Carbon Dioxide 25 (22-30) mmol/L Anion Gap 6.8 (5-15) MEQ/L BUN 5 L (7-17) mg/dL Creatinine 0.65 (0.52-1.04) mg/dL Estimated GFR > 60.0 ML/MIN Glucose 90 (74-106) mg/dL Calcium 7.6 L (8.4-10.2) mg/dL Vancomycin Trough 9.95 L (10-20) ug/mL Multi-Disciplinary Progress Notes: Multi-Disciplinary Progress Notes 05/09/20 08:22 Case Management Note by Marjan Rivas PATIENT STILL ACUTELY ILL, NO CHANGE IN DC PLANS AT THIS TIME-WILL CONTINUE TO FOLLOW Initialized on 05/09/20 08:22 - END OF NOTE Assessment/Plan (1) C. difficile enteritis Current Visit: Yes Status: Acute Assessment & Plan: continue current treatments Code(s): A04.72 - ENTEROCOLITIS D/T CLOSTRIDIUM DIFFICILE, NOT SPCF RECUR (2) Cellulitis Current Visit: Yes Status: Acute Assessment & Plan: continue current abx Code(s): L03.90 - CELLULITIS, UNSPECIFIED
[2020-05-09] MEDS: ROCEPHIN 1 Gm-D5w 50 ml Bag** 1 G/50 ML IVPB IV SCH (10:00)
[2020-05-09] MEDS: ENOXAPARIN SODIUM SQ SCH ×3 (10:04→21:26)
[2020-05-09] MEDS: DILAUDID 1 MG/1ML PCA IV PRN ×2 (10:59→17:37)
[2020-05-10] MEDS: FLAGYL 500 MG IVPB 500 MG/100 ML BAG IV SCH ×4 (00:31→17:32)
[2020-05-10] MEDS: Sodium Chloride 0.9% 1000 ML 1,000 ML IV SCH ×7 (04:14→23:02)
[2020-05-10] MEDS ORDERED: TROUGH DRUG LEVELS IJ ONE (07:00)
[2020-05-10 07:20] LABS: Hematocrit 28.9 % (35-47); Hemoglobin 9.3 gm/dl (12.0-16.0); Mean Corpuscular Hemoglobin 26.1 pg (26-32); Mean Corpuscular Hgb Concent. 32.2 g/dl (32-36); Mean Platelet Volume 8.2 fl (7.5-11.0); Platelet Count 421 K/mm3 (150-450); Red Blood Count 3.57 M/mm3 (4.1-5.4); Red Cell Distribution Width 14.9 % (11.5-14.0); White Blood Count 15.6 K/mm3 (4.0-10.5)
[2020-05-10 07:40] LABS: ANION GAP 4.4 MEQ/L (5-15); BLOOD UREA NITROGEN 3 mg/dL (7-17); CHLORIDE 103 mmol/L (98-107); Calcium 7.4 mg/dL (8.4-10.2); Carbon Dioxide 31 mmol/L (22-30); Creatinine 1 0.54 mg/dL (0.52-1.04); EST GLOMERULAR FILTRATION RATE > 60.0 ML/MIN; Glucose 97 mg/dL (74-106); SODIUM 135 mmol/L (137-145)
[2020-05-10 07:46] LABS: Potassium 2.8 mmol/L (3.5-5.1)
[2020-05-10] MEDS: VANCOMYCIN 1.5 GRAM/300 ML BAG 1.5 GM/300 ML PIGGYBACK IV SCH ×3 (08:16→22:58)
[2020-05-10] MEDS: POTASSIUM CHLORIDE 20 mEq IN WATER 100ML 20 MEQ/100 ML BAG IV SCH ×2 (08:52→11:04)
[2020-05-10] MEDS: ROCEPHIN 1 Gm-D5w 50 ml Bag** 1 G/50 ML IVPB IV SCH (10:16)
[2020-05-10] MEDS: ENOXAPARIN SODIUM SQ SCH ×2 (10:16→23:02)
[2020-05-10 10:28] LABS: ANISOCYTOSIS 1+; BAND 5 % (0.0-2.0); Eosinophil 1 % (0.00-3.0); Lymphocytes 13 % (24-44); Monocyte 6 % (0.0-12.0); Neutrophils 75 % (36.0-66.0); Platelet Estimate NORMAL (NORMAL); Total Cells Counted 100; Toxic Granulation 2+
[2020-05-10 10:29] LABS: Hypochromia 1+
--- NOTE | 2020-05-10 12:13 | PCM.NOTE ---
Date and Time: 05/10/20 1211 Subjective Assessment: Pt. feeling better, now able to move the leg better, notes a boil coming up on the left axilla - Review of Systems Constitutional: No Fever, No Chills Eyes: No Symptoms Ears, Nose, & Throat: No Symptoms Respiratory: No Cough, No Short Of Breath Cardiac: No Chest Pain, No Edema, No Syncope Abdominal/Gastrointestinal: No Abdominal Pain, No Nausea, No Vomiting, No Diarrhea Genitourinary Symptoms: No Dysuria Musculoskeletal: No Back Pain, No Neck Pain Skin: Cellulitis Neurological: No Dizziness, No Focal Weakness, No Sensory Changes Psychological: No Symptoms Endocrine: No Symptoms Hematologic/Lymphatic: No Symptoms Immunological/Allergic: No Symptoms Objective Exam General Appearance: no apparent distress Skin Exam: normal color, warm, dry, rash (marked improvement in swelling and redness of the leg) Wound Assessment: Skin/Wound Assessment Wound/Incision Assessment Start: 05/06/20 23:00 Text: Status: Active Freq: Q6H Protocol: Document 05/10/20 07:44 RN (Rec: 05/10/20 07:57 RN [id number]) Wound/Incision Assessment Posterior Back Wound Assessment Shift Assessment Wound Stage Non Pressure Wound Drainage Amount None Drainage Odor None/Absent General Appearance Open to air Comment several scabbed areas to back no drainage noted Left Arm Wound Assessment Shift Assessment Wound Type cellulitis Wound Stage Non Pressure Wound Drainage Amount None General Appearance Open to air,Reddened Surrounding Tissue Edematous Comment area in left arm pit swollen, red, with hard nodules noted; open to air. Left Upper Medial Thigh Wound Assessment Shift Assessment Wound Type cellulitis Wound Stage Non Pressure Wound Drainage Amount None General Appearance Open to air Surrounding Tissue [place],Edematous Comment right thigh/labia area pink, warm to touch, patient reports pain to light touch. barrier cream applied PRN Wound Photo Comment: picture taken on admission Ears, Nose, Throat Exam: normal ENT inspection Neck Exam: normal inspection Respiratory Exam: normal breath sounds, chest tenderness Cardiovascular Exam: regular rate/rhythm, normal heart sounds Extremity Exam: normal inspection (non-fluctuant boil under the left axilla, continue iv abx) OBJECTIVE DATA Vital Signs: Vital Signs - 24 hr Temp Pulse Resp BP Pulse Ox 05/10/20 10:33 98.3 F 84 20 136/70 97 05/10/20 09:37 96 05/10/20 07:55 98 05/10/20 07:34 98.0 F 80 18 129/60 98 05/10/20 05:37 98 05/10/20 04:00 98.3 F 85 16 100/55 96 05/10/20 01:37 96 05/10/20 00:00 95 H 18 97 05/09/20 21:24 100 05/09/20 20:00 98.2 F 94 H 18 114/56 97 05/09/20 19:18 96 05/09/20 17:37 96 05/09/20 16:00 97.9 F 75 18 120/70 96 05/09/20 14:59 96 05/09/20 14:06 96 Oxygen-Last 24 hours Oxygen Flowrate (L/min)-RT 2 Oxygen Flowrate (L/min)-RT 2 Oxygen Flowrate (L/min)-RT 2 Pain Assessment - Last Documented Pain Intensity 8 Pain Scale Used 0-10 Pain Scale Intake and Output: Intake & Output 05/08/20 05/09/20 05/10/20 05/11/20 11:59 11:59 11:59 11:59 Intake Total 4566 3872 3746 Output Total 2450 900 Balance 4566 1422 2846 Weight 93.4 kg 91.7 kg 92.4 kg Lab Results: Lab Results-Last 24 Hours 05/07/20 05/10/20 05/10/20 Range/Units 11:10 07:17 07:17 WBC 15.6 H (4.0-10.5) K/mm3 RBC 3.57 L (4.1-5.4) M/mm3 Hgb 9.3 L (12.0-16.0) gm/dl Hct 28.9 L (35-47) % MCV 81.0 (78-100) fl MCH 26.1 (26-32) pg MCHC 32.2 (32-36) g/dl RDW 14.9 H (11.5-14.0) % Plt Count 421 (150-450) K/mm3 MPV 8.2 (7.5-11.0) fl Segmented Neutrophils 75 H (36.0-66.0) % Band Neutrophils 5 H (0.0-2.0) % Lymphocytes (Manual) 13 L (24-44) % Monocytes (Manual) 6 (0.0-12.0) % Eosinophils (Manual) 1 (0.00-3.0) % Hypochromia 1+ Toxic Granulation 2+ Platelet Estimate NORMAL (NORMAL) RBC Morphology ABNORMAL Anisocytosis 1+ Smear Path Review Sodium 135 L (137-145) mmol/L Potassium 2.8 L* (3.5-5.1) mmol/L Chloride 103 (98-107) mmol/L Carbon Dioxide 31 H (22-30) mmol/L Anion Gap 4.4 L (5-15) MEQ/L BUN 3 L (7-17) mg/dL Creatinine 0.54 (0.52-1.04) mg/dL Estimated GFR > 60.0 ML/MIN Glucose 97 (74-106) mg/dL Calcium 7.4 L (8.4-10.2) mg/dL Vancomycin Trough (10-20) ug/mL 05/10/20 Range/Units 07:17 WBC (4.0-10.5) K/mm3 RBC (4.1-5.4) M/mm3 Hgb (12.0-16.0) gm/dl Hct (35-47) % MCV (78-100) fl MCH (26-32) pg MCHC (32-36) g/dl RDW (11.5-14.0) % Plt Count (150-450) K/mm3 MPV (7.5-11.0) fl Segmented Neutrophils (36.0-66.0) % Band Neutrophils (0.0-2.0) % Lymphocytes (Manual) (24-44) % Monocytes (Manual) (0.0-12.0) % Eosinophils (Manual) (0.00-3.0) % Hypochromia Toxic Granulation Platelet Estimate (NORMAL) RBC Morphology Anisocytosis Smear Path Review Sodium (137-145) mmol/L Potassium (3.5-5.1) mmol/L Chloride (98-107) mmol/L Carbon Dioxide (22-30) mmol/L Anion Gap (5-15) MEQ/L BUN (7-17) mg/dL Creatinine (0.52-1.04) mg/dL Estimated GFR ML/MIN Glucose (74-106) mg/dL Calcium (8.4-10.2) mg/dL Vancomycin Trough 10.49 (10-20) ug/mL Multi-Disciplinary Progress Notes: Multi-Disciplinary Progress Notes 05/10/20 10:28 Case Management Note by Marjan Rivas S/W PATIENT THIS AM- SHE CONTINUES TO DENY ANY NEEDS REGARDING DC AT THIS TIME Initialized on 05/10/20 10:28 - END OF NOTE Assessment/Plan (1) C. difficile enteritis Current Visit: Yes Status: Acute Assessment & Plan: no changes in current plan Code(s): A04.72 - ENTEROCOLITIS D/T CLOSTRIDIUM DIFFICILE, NOT SPCF RECUR (2) Cellulitis Current Visit: Yes Status: Acute Assessment & Plan: wbc down to 15.6, will continue current abx Code(s): L03.90 - CELLULITIS, UNSPECIFIED
[2020-05-11] MEDS: FLAGYL 500 MG IVPB 500 MG/100 ML BAG IV SCH ×4 (01:24→18:10)
[2020-05-11 05:48] LABS: Hematocrit 29.1 % (35-47); Hemoglobin 8.9 gm/dl (12.0-16.0); Mean Cell Volume 81.5 fl (78-100); Mean Corpuscular Hemoglobin 24.9 pg (26-32); Mean Corpuscular Hgb Concent. 30.6 g/dl (32-36); Mean Platelet Volume 8.6 fl (7.5-11.0); Platelet Count 448 K/mm3 (150-450); Red Blood Count 3.57 M/mm3 (4.1-5.4); Red Cell Distribution Width 14.9 % (11.5-14.0); White Blood Count 16.9 K/mm3 (4.0-10.5)
[2020-05-11 06:19] LABS: ANION GAP 4.8 MEQ/L (5-15); BLOOD UREA NITROGEN 3 mg/dL (7-17); CHLORIDE 101 mmol/L (98-107); Calcium 7.5 mg/dL (8.4-10.2); Carbon Dioxide 30 mmol/L (22-30); Creatinine 1 0.52 mg/dL (0.52-1.04); EST GLOMERULAR FILTRATION RATE > 60.0 ML/MIN; Glucose 94 mg/dL (74-106); SODIUM 133 mmol/L (137-145)
[2020-05-11 06:26] LABS: Potassium 2.9 mmol/L (3.5-5.1)
[2020-05-11] MEDS ORDERED: POTASSIUM CHLORIDE 20 mEq IN WATER 100ML 20 MEQ/100 ML BAG IV ONE (07:00)
[2020-05-11] MEDS ORDERED: Klor Con 10 MEQ PO ONE (07:00)
[2020-05-11 07:28] LABS: BAND 33 % (0.0-2.0); Eosinophil 5 % (0.00-3.0); Lymphocytes 13 % (24-44); Monocyte 10 % (0.0-12.0); Neutrophils 39 % (36.0-66.0); Total Cells Counted 100
[2020-05-11 07:31] LABS: Hypochromia 1+; Platelet Estimate NORMAL (NORMAL)
[2020-05-11 07:35] LABS: Absolute Neutrophil Ct (ANC) 12.18 (1.4-6.9)
[2020-05-11] MEDS: Sodium Chloride 0.9% 1000 ML 1,000 ML IV SCH ×2 (07:41→18:10)
[2020-05-11] MEDS: VANCOMYCIN 1.5 GRAM/300 ML BAG 1.5 GM/300 ML PIGGYBACK IV SCH ×2 (07:41→19:58)
--- NOTE | 2020-05-11 08:28 | PCM.NOTE ---
Date and Time: 05/11/20825 Subjective Assessment: Pt. notes feeling better, wbc have bumped slightly - Review of Systems Constitutional: No Fever, No Chills Eyes: No Symptoms Ears, Nose, & Throat: No Symptoms Respiratory: No Cough, No Short Of Breath Cardiac: No Chest Pain, No Edema, No Syncope Abdominal/Gastrointestinal: No Abdominal Pain, No Nausea, No Vomiting, No Diarrhea Genitourinary Symptoms: No Dysuria Musculoskeletal: No Back Pain, No Neck Pain Skin: Cellulitis Neurological: No Dizziness, No Focal Weakness, No Sensory Changes Psychological: No Symptoms Endocrine: No Symptoms Hematologic/Lymphatic: No Symptoms Immunological/Allergic: No Symptoms Objective Exam General Appearance: no apparent distress Neurologic Exam: alert, cooperative Skin Exam: warm, dry, No rash, No petechiae (possible groin coalescence into abscess, will CT, lessening of redness and swelling onto the thigh region.) Wound Assessment: Skin/Wound Assessment Wound/Incision Assessment Start: 05/06/20 23:00 Text: Status: Active Freq: Q6H Protocol: Document 05/11/20 02:00 LB (Rec: 05/11/20 02:[address]) Wound/Incision Assessment Posterior Back Wound Assessment Shift Assessment Wound Stage Non Pressure Wound Drainage Amount None Drainage Odor None/Absent General Appearance Open to air Comment several scabbed areas to back no drainage noted Left Arm Wound Assessment Shift Assessment Wound Type cellulitis Wound Stage Non Pressure Wound Drainage Amount None General Appearance Open to air,Reddened Surrounding Tissue Edematous Comment area in left arm pit swollen, red, with hard nodules noted; open to air. Left Upper Medial Thigh Wound Assessment Shift Assessment Wound Type cellulitis Wound Stage Non Pressure Wound Drainage Amount None General Appearance Open to air Surrounding Tissue [place],Edematous Comment right thigh/labia area pink, warm to touch, patient reports pain to light touch. barrier cream applied PRN Wound Photo Comment: picture taken on admission OBJECTIVE DATA Vital Signs: Vital Signs - 24 hr Temp Pulse Resp BP Pulse Ox 05/11/20 08:00 96.7 F 81 16 108/62 94 L 05/11/20 05:37 93 L 05/11/20 03:46 98.3 F 79 16 111/61 96 05/11/20 00:00 91 H 18 92 L 05/10/20 20:00 98.2 F 88 18 127/74 99 05/10/20 19:08 99 05/10/20 17:34 98 05/10/20 15:57 98.8 F 89 18 117/58 98 05/10/20 13:37 97 05/10/20 10:33 98.3 F 84 20 136/70 97 05/10/20 09:37 96 Oxygen-Last 24 hours Oxygen Flowrate (L/min)-RT 2 Pain Assessment - Last Documented Pain Intensity 9 Pain Scale Used 0-10 Pain Scale Intake and Output: Intake & Output 05/08/20 05/09/20 05/10/20 05/11/20 11:59 11:59 11:59 11:59 Intake Total 4566 3872 3746 4272 Output Total 2450 900 6400 Balance 4566 1422 2846 -0658 Weight 93.4 kg 91.7 kg 92.4 kg 91.8 kg Lab Results: Lab Results-Last 24 Hours 05/10/20 05/11/20 05/11/20 Range/Units 07:17 05:07 05:07 WBC 16.9 H (4.0-10.5) K/mm3 RBC 3.57 L (4.1-5.4) M/mm3 Hgb 8.9 L (12.0-16.0) gm/dl Hct 29.1 L (35-47) % MCV 81.5 (78-100) fl MCH 24.9 L (26-32) pg MCHC 30.6 L (32-36) g/dl RDW 14.9 H (11.5-14.0) % Plt Count 448 (150-450) K/mm3 MPV 8.6 (7.5-11.0) fl Absolute Granulocytes 12.18 H (1.4-6.9) Segmented Neutrophils 75 H 39 (36.0-66.0) % Band Neutrophils 5 H 33 H (0.0-2.0) % Lymphocytes (Manual) 13 L 13 L (24-44) % Monocytes (Manual) 6 10 (0.0-12.0) % Eosinophils (Manual) 1 5 H (0.00-3.0) % Hypochromia 1+ 1+ Toxic Granulation 2+ Platelet Estimate NORMAL NORMAL (NORMAL) RBC Morphology ABNORMAL ABNORMAL Anisocytosis 1+ Sodium 133 L (137-145) mmol/L Potassium 2.9 L* (3.5-5.1) mmol/L Chloride 101 (98-107) mmol/L Carbon Dioxide 30 (22-30) mmol/L Anion Gap 4.8 L (5-15) MEQ/L BUN 3 L (7-17) mg/dL Creatinine 0.52 (0.52-1.04) mg/dL Estimated GFR > 60.0 ML/MIN Glucose 94 (74-106) mg/dL Calcium 7.5 L (8.4-10.2) mg/dL Multi-Disciplinary Progress Notes: Multi-Disciplinary Progress Notes 05/10/20 10:28 Case Management Note by Marjan Rivas S/W PATIENT THIS AM- SHE CONTINUES TO DENY ANY NEEDS REGARDING DC AT THIS TIME Initialized on 05/10/20 10:28 - END OF NOTE Assessment/Plan (1) C. difficile enteritis Current Visit: Yes Status: Acute Assessment & Plan: continue flagyl Code(s): A04.72 - ENTEROCOLITIS D/T CLOSTRIDIUM DIFFICILE, NOT SPCF RECUR (2) Cellulitis Current Visit: Yes Status: Acute Assessment & Plan: improved but possible abscess on the groin region will ct today, pt. can not tolerate u/s Code(s): L03.90 - CELLULITIS, UNSPECIFIED
[2020-05-11] MEDS: ENOXAPARIN SODIUM SQ SCH ×2 (10:00→22:54)
[2020-05-11] MEDS: ROCEPHIN 1 Gm-D5w 50 ml Bag** 1 G/50 ML IVPB IV SCH (10:00)
--- NOTE | 2020-05-11 14:00 | XRAY ---
Indication: Left inguinal pain, swelling, and erythema. Cellulitis/abscess/sepsis. Multiple contiguous axial images obtained through the pelvis only using 80 cc Isovue 370 contrast. Cutaneous markers placed over the region of interest. Comparison: December 02, 2019. Distal and terminal ileum again demonstrates circumferential wall thickening concerning for Crohn's disease. Cul-de-sac demonstrates new small free fluid presumed physiologic from rupture/leaking cyst. Incidental 2.3 cm right ovary cyst. New enlarging left pelvic lymph nodes along the iliac chain, largest 1.5 x 3.0 cm. Remaining visualized uterus and urinary bladder are unremarkable. Left groin now demonstrates cutaneous/subcutaneous induration favoring cellulitis. There are also new left inguinal and medial left thigh multifocal small subcutaneous and deep inguinal micro-abscesses, largest 2.2 x 2.7 cm. Also new enlarging left inguinal lymph nodes, largest 1.5 x 2.5 cm presumed reactive. Stable small benign right inguinal lymph nodes. No ventral or inguinal hernias. Deep right buttock again demonstrates subcutaneous fatty induration with new similar symptoms fatty induration of the contralateral buttock concerning for cellulitis. Visualized osseous structures intact without suspicious bony lesions. Stable tiny right femur head bone island. CT left thigh/leg reported separately. Impression: 1. New left groin cellulitis with multifocal micro-abscesses as detailed. Also new left iliac chain and left inguinal reactive lymphadenopathy. 2. Bilaterally deep buttock subcutaneous fatty induration again favoring cellulitis. 3. New cul-de-sac free fluid presumed physiologic and new 2.3 cm right ovary cyst. 3. Stable distal/terminal ileal bowel wall thickening favoring Crohn's disease.
--- NOTE | 2020-05-11 18:35 | XRAY ---
Indication: Left inguinal pain, swelling, and erythema. Cellulitis/abscess/sepsis. Multiple contiguous axial images obtained through the left upper leg using 80 cc Isovue 370 contrast. Sagittal and coronal reformatted images obtained. Comparison: None CT pelvis reported separately. Majority medial left upper leg demonstrates moderate cutaneous/subcutaneous induration favoring cellulitis. There are multifocal small non-drainable fluid collections superficial to the rectus femoris, vastus medialis, and sartorius muscles favoring abscesses. A few prominent reactive lymph nodes seen of the proximal anterior leg, largest 1.2 x 1.6 cm. Major arteries and veins are normal in course and caliber. No acute fracture, dislocation, or suspicious bony lesions Impression: Extensive medial left upper leg cellulitis with multifocal micro-abscesses and reactive lymph nodes as detailed.
[2020-05-12] MEDS: FLAGYL 500 MG IVPB 500 MG/100 ML BAG IV SCH ×5 (00:24→23:37)
[2020-05-12] MEDS: Sodium Chloride 0.9% 1000 ML 1,000 ML IV SCH ×2 (03:53→20:14)
[2020-05-12 05:45] LABS: Hematocrit 29.3 % (35-47); Hemoglobin 8.8 gm/dl (12.0-16.0); Mean Cell Volume 82.5 fl (78-100); Mean Corpuscular Hemoglobin 24.8 pg (26-32); Mean Platelet Volume 8.6 fl (7.5-11.0); Platelet Count 403 K/mm3 (150-450); Red Blood Count 3.55 M/mm3 (4.1-5.4); White Blood Count 13.3 K/mm3 (4.0-10.5)
[2020-05-12 06:17] LABS: ANION GAP 5.9 MEQ/L (5-15); BLOOD UREA NITROGEN 4 mg/dL (7-17); CHLORIDE 101 mmol/L (98-107); Calcium 7.7 mg/dL (8.4-10.2); Carbon Dioxide 30 mmol/L (22-30); Creatinine 1 0.44 mg/dL (0.52-1.04); EST GLOMERULAR FILTRATION RATE > 60.0 ML/MIN; Glucose 85 mg/dL (74-106); Potassium 3.6 mmol/L (3.5-5.1); SODIUM 134 mmol/L (137-145)
[2020-05-12] MEDS: VANCOMYCIN 1.5 GRAM/300 ML BAG 1.5 GM/300 ML PIGGYBACK IV SCH ×2 (08:06→20:12)
--- NOTE | 2020-05-12 08:51 | PCM.NOTE ---
Date and Time: 05/12/20848 Subjective Assessment: Pt. feeling better, wbc down to 13.3, leg is still red, hands are swollen today. - Review of Systems Constitutional: No Fever, No Chills Eyes: No Symptoms Ears, Nose, & Throat: No Symptoms Respiratory: No Cough, No Short Of Breath Cardiac: No Chest Pain, No Edema, No Syncope Abdominal/Gastrointestinal: No Abdominal Pain, No Nausea, No Vomiting, No Diarrhea Genitourinary Symptoms: No Dysuria Musculoskeletal: No Back Pain, No Neck Pain Skin: Cellulitis Neurological: No Dizziness, No Focal Weakness, No Sensory Changes Psychological: No Symptoms Endocrine: No Symptoms Hematologic/Lymphatic: No Symptoms Immunological/Allergic: No Symptoms Objective Exam General Appearance: no apparent distress Neurologic Exam: alert Skin Exam: normal color, warm, dry (cellulitis of lower leg with enlarged ln in groin noted) Wound Assessment: Skin/Wound Assessment Wound/Incision Assessment Start: 05/06/20 23:00 Text: Status: Active Freq: Q6H Protocol: Document 05/12/20 08:00 CORAZON (Rec: 05/12/20 08:17 CORAZON [id number]) Wound/Incision Assessment Posterior Back Wound Assessment Shift Assessment Wound Stage Non Pressure Wound Drainage Amount None Drainage Odor None/Absent General Appearance Open to air Comment SCABBED AREAS, OPEN TO AIR Left Arm Wound Assessment Shift Assessment Wound Type CELLULITIS Wound Stage Non Pressure Wound Drainage Amount None General Appearance Open to air,Reddened Surrounding Tissue Edematous Comment LEFT AXILLA Left Upper Medial Thigh Wound Assessment Shift Assessment Wound Type CELLULITIS Wound Stage Non Pressure Wound Drainage Amount None General Appearance Open to air Surrounding Tissue [place],Edematous Comment RED AND WARM TO THE TOUCH, NODULES CAN BE FELT, VERY PAINFUL, BARRIER CREAM APPLIED Eye Exam: EOMI Neck Exam: normal inspection Respiratory Exam: normal breath sounds, lungs clear, No chest tenderness Cardiovascular Exam: regular rate/rhythm, normal heart sounds Gastrointestinal/Abdomen Exam: soft, No tenderness, No distention OBJECTIVE DATA Vital Signs: Vital Signs - 24 hr Temp Pulse Resp BP Pulse Ox 05/12/20 07:50 99 05/12/20 06:51 98.4 F 80 20 118/62 99 05/12/20 03:56 98.0 F 83 17 106/57 95 05/12/20 00:00 98.3 F 84 19 112/55 97 05/11/20 22:25 98 05/11/20 20:00 98.4 F 82 18 117/72 99 05/11/20 19:18 98 05/11/20 16:00 98.0 F 79 12 108/75 98 05/11/20 12:00 97.0 F 77 15 112/68 93 L Pain Assessment - Last Documented Pain Intensity 6 Pain Scale Used 0-10 Pain Scale Intake and Output: Intake & Output 05/09/20 05/10/20 05/11/20 05/12/20 11:59 11:59 11:59 11:59 Intake Total 3872 3746 4272 3964 Output Total 2450 900 6700 2850 Balance 1422 2846 -2428 1114 Weight 91.7 kg 92.4 kg 91.8 kg 92.3 kg Lab Results: Lab Results-Last 24 Hours 05/11/20 05/12/20 05/12/20 Range/Units 12:46 05:00 05:12 WBC 13.3 H (4.0-10.5) K/mm3 RBC 3.55 L (4.1-5.4) M/mm3 Hgb 8.8 L (12.0-16.0) gm/dl Hct 29.3 L (35-47) % MCV 82.5 (78-100) fl MCH 24.8 L (26-32) pg MCHC 30.0 L (32-36) g/dl RDW 15.0 H (11.5-14.0) % Plt Count 403 (150-450) K/mm3 MPV 8.6 (7.5-11.0) fl Sodium 134 L (137-145) mmol/L Potassium 3.5 D 3.6 (3.5-5.1) mmol/L Chloride 101 (98-107) mmol/L Carbon Dioxide 30 (22-30) mmol/L Anion Gap 5.9 (5-15) MEQ/L BUN 4 L (7-17) mg/dL Creatinine 0.44 L (0.52-1.04) mg/dL Estimated GFR > 60.0 ML/MIN Glucose 85 (74-106) mg/dL Calcium 7.7 L (8.4-10.2) mg/dL Radiology Exams: Radiology Procedures Category Date Time Status LOWER EXTREMITY WITH CONTRAST [CT] Routine Exams 05/11/20 09:00 Completed PELVIS WITH CONTRAST [CT] Routine Exams 05/11/20 12:56 Completed Multi-Disciplinary Progress Notes: Multi-Disciplinary Progress Notes 05/11/20 11:45 Nutrition Note by Amada David F/u Note: Pt diet advanced to house regular on 05/09 NPO 05/11 for scan. Labs 05/11= Na 133, K+ 2.9, BUN 3, hgb 8.9, hct 29.1. adm weight 93.4kg; current weight 91.8 kg. Recommend to resume po intake within 2-3 days. Will monitor and f/u prn. T.BROOKE DavidCD Initialized on 05/11/20 11:45 - END OF NOTE 05/11/20 10:59 Case Management Note by Marjan Rivas NO CHANGE IN DC PLANS- WILL CONTINUE TO FOLLOW Initialized on 05/11/20 10:59 - END OF NOTE Assessment/Plan (1) C. difficile enteritis Current Visit: Yes Status: Acute Assessment & Plan: Continue iv abx Code(s): A04.72 - ENTEROCOLITIS D/T CLOSTRIDIUM DIFFICILE, NOT SPCF RECUR (2) Cellulitis Current Visit: Yes Status: Acute Assessment & Plan: Continue iv abx, decrease ivf flow rate, no abscess on CT done yesterday Code(s): L03.90 - CELLULITIS, UNSPECIFIED
[2020-05-12] MEDS ORDERED: Sodium Chloride 0.9% 1000 ML 1,000 ML IV SCH (09:00)
[2020-05-12] MEDS: Klor Con 10 MEQ PO SCH (10:17)
[2020-05-12] MEDS: ENOXAPARIN SODIUM SQ SCH ×2 (10:18→21:42)
[2020-05-12] MEDS: ROCEPHIN 1 Gm-D5w 50 ml Bag** 1 G/50 ML IVPB IV SCH (10:18)
[2020-05-13] MEDS: FLAGYL 500 MG IVPB 500 MG/100 ML BAG IV SCH ×4 (05:23→23:18)
--- NOTE | 2020-05-13 07:46 | PCM.NOTE ---
Date and Time: 05/13/20 0738 Subjective Assessment: doing ok - Review of Systems Constitutional: No Fever, No Chills Eyes: No Symptoms Ears, Nose, & Throat: No Symptoms Respiratory: No Cough, No Short Of Breath Cardiac: No Chest Pain, No Edema, No Syncope Abdominal/Gastrointestinal: No Abdominal Pain, No Nausea, No Vomiting, No Diarrhea Genitourinary Symptoms: No Dysuria Musculoskeletal: No Back Pain, No Neck Pain Skin: No Rash Neurological: No Dizziness, No Focal Weakness, No Sensory Changes Psychological: No Symptoms Endocrine: No Symptoms Hematologic/Lymphatic: No Symptoms Immunological/Allergic: No Symptoms Objective Exam General Appearance: no apparent distress, alert Neurologic Exam: alert, oriented x 3, cooperative, normal mood/affect, nml cerebellar function, sensation nml, No motor deficits Skin Exam: normal color, warm, dry Wound Assessment: Skin/Wound Assessment Wound/Incision Assessment Start: 05/06/20 23:00 Text: Status: Active Freq: Q6H Protocol: Document 05/13/20 02:00 (Rec: 05/13/20 03:10 [id number]) Wound/Incision Assessment Posterior Back Wound Assessment Shift Assessment Wound Stage Non Pressure Wound Drainage Amount None Drainage Odor None/Absent General Appearance Open to air Comment SCABBED AREAS, OPEN TO AIR Left Arm Wound Assessment Shift Assessment Wound Type CELLULITIS Wound Stage Non Pressure Wound Drainage Amount None General Appearance Open to air,Reddened Surrounding Tissue Edematous Comment LEFT AXILLA Left Upper Medial Thigh Wound Assessment Shift Assessment Wound Type CELLULITIS Wound Stage Non Pressure Wound Drainage Amount None General Appearance Open to air Surrounding Tissue [place],Edematous Comment RED AND WARM TO THE TOUCH, NODULES CAN BE FELT, VERY PAINFUL, BARRIER CREAM APPLIED Wound Photo Photo Taken No Eye Exam: PERRL, EOMI, eyes nml inspection Ears, Nose, Throat Exam: normal ENT inspection, pharynx normal, moist mucous membranes Neck Exam: normal inspection, non-tender, supple, full range of motion Respiratory Exam: normal breath sounds, lungs clear, No respiratory distress Cardiovascular Exam: regular rate/rhythm, normal heart sounds Gastrointestinal/Abdomen Exam: soft, No tenderness, No mass Extremity Exam: normal inspection, normal range of motion Back Exam: normal inspection, normal range of motion, No CVA tenderness, No vertebral tenderness Pelvic Exam: deferred Rectal Exam: deferred OBJECTIVE DATA Vital Signs: Vital Signs - 24 hr Temp Pulse Resp BP Pulse Ox 05/13/20 04:00 98.2 F 66 14 111/73 97 05/13/20 00:00 98.5 F 76 18 113/64 95 05/12/20 20:00 98.9 F 77 16 120/74 95 05/12/20 19:30 95 05/12/20 16:00 79 18 112/68 98 05/12/20 12:00 98.2 F 85 20 122/70 98 05/12/20 07:50 99 Oxygen-Last 24 hours Oxygen Flowrate (L/min)-RT 2 Oxygen Flowrate (L/min)-RT 2 Pain Assessment - Last Documented Pain Intensity 4 Pain Scale Used 0-10 Pain Scale Intake and Output: Intake & Output 05/10/20 05/11/20 05/12/20 05/13/20 11:59 11:59 11:59 11:59 Intake Total 3746 4272 3964 4653 Output Total 900 6700 2850 2350 Balance 2846 -2428 1114 2303 Weight 92.4 kg 91.8 kg 92.3 kg Radiology Exams: Radiology Procedures Category Date Time Status LOWER EXTREMITY WITH CONTRAST [CT] Routine Exams 05/11/20 09:00 Completed PELVIS WITH CONTRAST [CT] Routine Exams 05/11/20 12:56 Completed Multi-Disciplinary Progress Notes: Multi-Disciplinary Progress Notes 05/12/20 15:33 Nutrition Note by Amada David F/u Note: Diet advanced to house regular on 05/11 with 25-50% po intake. Labs 05/12= Na 134, BUN 4, Cr 0.44, hgb 8.8, hct 29.3. adm weight 93.4kg; current weight 92.3kg. Recommend to con't with house regular diet. goal #1) increase po intake >50% Will monitor and f/u prn. T.KIRK David Initialized on 05/12/20 15:33 - END OF NOTE 05/12/20 11:36 Case Management Note by Marjan Rivas S/W PATIENT- SHE CONTINUES TO DENY ANY NEEDS REGARDING DC AT THIS TIME. SHE IS STILL HAVING TROUBLE AMBULATING AND HAS SIG PAIN WITH MOVEMENT. SHE IS CONCERNED SHE MAY NEED A WALKER AT DC. INSTRUCTIONS PLACED ON CHART FOR STAFF ON HOW TO ARRANGE FOR A WALKER IF NEEDED (IF PATIENT DCS HOME OVER THE WEEKEND) Initialized on 05/12/20 11:36 - END OF NOTE Assessment/Plan (1) C. difficile enteritis Current Visit: Yes Status: Acute Code(s): A04.72 - ENTEROCOLITIS D/T CLOSTRIDIUM DIFFICILE, NOT SPCF RECUR (2) Gastroenteritis Current Visit: Yes Status: Resolved Code(s): K52.9 - NONINFECTIVE GASTROENTERITIS AND COLITIS, UNSPECIFIED
[2020-05-13] MEDS: VANCOMYCIN 1.5 GRAM/300 ML BAG 1.5 GM/300 ML PIGGYBACK IV SCH ×2 (08:45→19:59)
[2020-05-13] MEDS: Klor Con 10 MEQ PO SCH (10:59)
[2020-05-13] MEDS: ENOXAPARIN SODIUM SQ SCH ×2 (11:00→21:18)
[2020-05-13] MEDS: ROCEPHIN 1 Gm-D5w 50 ml Bag** 1 G/50 ML IVPB IV SCH (11:05)
[2020-05-13] MEDS: Sodium Chloride 0.9% 1000 ML 1,000 ML IV SCH (23:18)
[2020-05-14] MEDS: FLAGYL 500 MG IVPB 500 MG/100 ML BAG IV SCH ×4 (06:30→23:51)
[2020-05-14] MEDS: VANCOMYCIN 1.5 GRAM/300 ML BAG 1.5 GM/300 ML PIGGYBACK IV SCH ×2 (07:58→20:08)
--- NOTE | 2020-05-14 09:54 | PCM.NOTE ---
Date and Time: 05/14/20 0953 Subjective Assessment: doing better - Review of Systems Constitutional: No Fever, No Chills Eyes: No Symptoms Ears, Nose, & Throat: No Symptoms Respiratory: No Cough, No Short Of Breath Cardiac: No Chest Pain, No Edema, No Syncope Abdominal/Gastrointestinal: No Abdominal Pain, No Nausea, No Vomiting, No Diarrhea Genitourinary Symptoms: No Dysuria Musculoskeletal: No Back Pain, No Neck Pain Skin: No Rash Neurological: No Dizziness, No Focal Weakness, No Sensory Changes Psychological: No Symptoms Endocrine: No Symptoms Hematologic/Lymphatic: No Symptoms Immunological/Allergic: No Symptoms Objective Exam General Appearance: no apparent distress, alert Neurologic Exam: alert, oriented x 3, cooperative, normal mood/affect, nml cerebellar function, sensation nml, No motor deficits Skin Exam: normal color, warm, dry Wound Assessment: Skin/Wound Assessment Wound/Incision Assessment Start: 05/06/20 23:00 Text: Status: Active Freq: Q6H Protocol: Document 05/14/20 02:00 (Rec: 05/14/20 03:10 [id number]) Wound/Incision Assessment Posterior Back Wound Assessment Shift Assessment Wound Stage Non Pressure Wound Drainage Amount None Drainage Odor None/Absent General Appearance Open to air Comment SCABBED AREAS, OPEN TO AIR Left Arm Wound Assessment Shift Assessment Wound Type CELLULITIS Wound Stage Non Pressure Wound Drainage Amount None General Appearance Open to air,Reddened Surrounding Tissue Bright [place],Edematous Comment LEFT AXILLA Left Upper Medial Thigh Wound Assessment Shift Assessment Wound Type CELLULITIS Wound Stage Non Pressure Wound Drainage Amount Minimal Drainage Odor None/Absent General Appearance Open to air Surrounding Tissue [place],Edematous Comment RED AND WARM TO THE TOUCH, NODULES CAN BE FELT, VERY PAINFUL, some drainage noted, barrier cream applied Wound Photo Photo Taken No Eye Exam: PERRL, EOMI, eyes nml inspection Ears, Nose, Throat Exam: normal ENT inspection, pharynx normal, moist mucous membranes Neck Exam: normal inspection, non-tender, supple, full range of motion Respiratory Exam: normal breath sounds, lungs clear, No respiratory distress Cardiovascular Exam: regular rate/rhythm, normal heart sounds Gastrointestinal/Abdomen Exam: soft, No tenderness, No mass Extremity Exam: normal inspection, normal range of motion Back Exam: normal inspection, normal range of motion, No CVA tenderness, No vertebral tenderness Pelvic Exam: deferred Rectal Exam: deferred OBJECTIVE DATA Vital Signs: Vital Signs - 24 hr Temp Pulse Resp BP Pulse Ox 05/14/20 07:47 98.0 F 72 14 115/68 97 05/14/20 07:22 92 L 05/14/20 04:00 98.2 F 71 16 116/58 95 05/14/20 00:00 98 F 75 16 106/56 97 05/13/20 20:00 98.1 F 71 16 110/65 99 05/13/20 19:14 96 05/13/20 16:00 97.0 F 67 18 105/56 96 05/13/20 12:00 95.6 F 64 16 112/69 96 Pain Assessment - Last Documented Pain Intensity 4 Pain Scale Used 0-10 Pain Scale Intake and Output: Intake & Output 05/11/20 05/12/20 05/13/20 05/14/20 11:59 11:59 11:59 11:59 Intake Total 4272 3964 4773 2982 Output Total 6700 2850 2950 2300 Balance -2428 1114 1823 682 Weight 91.8 kg 92.3 kg 92.7 kg 93 kg Assessment/Plan (1) C. difficile enteritis Current Visit: Yes Status: Acute Assessment & Plan: Chief Complaint Diagnosis Sepsis/Cellulitis Admission Date Date 05/07/20 Allergies Allergy/AdvReac Type Severity Reaction Status Date / Time tramadol AdvReac Unknown "I DON'T Verified 05/06/20 19:27 LIKE IT" Vital Signs (Last 24 hours) Temp Pulse Resp BP Pulse Ox 05/14/20 07:47 98.0 F 72 14 115/68 97 05/14/20 07:22 92 L 05/14/20 04:00 98.2 F 71 16 116/58 95 05/14/20 00:00 98 F 75 16 106/56 97 05/13/20 20:00 98.1 F 71 16 110/65 99 05/13/20 19:14 96 05/13/20 16:00 97.0 F 67 18 105/56 96 05/13/20 12:00 95.6 F 64 16 112/69 96 Home Medications Medication Instructions Recorded Confirmed Last Taken Type No Reportable Medications [No 05/06/20 05/06/20 Unknown History Reported Medications] Current Medications Generic Name Dose Route Start Last Admin Trade Name Freq PRN Reason Stop Dose Admin Acetaminophen 650 mg 05/06/20 23:02 05/08/20 17:51 Tylenol 325 Mg PO 06/05/20 23:01 650 mg Q4H PRN PRN Administration PAIN, FEVER, HEADACHE Enoxaparin Sodium 40 mg 05/08/20 10:00 05/13/20 21:18 Enoxaparin Sodium SQ 06/07/20 09:59 Not Given Q12HT MIHAELA Hydromorphone HCl 30 mg 05/09/20 10:33 05/09/20 17:37 Dilaudid 1 Mg/1ml [employer] IV 05/14/20 10:32 30 mg UD PRN Administration PAIN Sodium Chloride 1,000 mls @ 150 mls/hr 05/06/20 23:02 05/13/20 23:18 Sodium Chloride 0.9% 1000 Ml IV 06/05/20 23:01 150 mls/hr .Q6H40M MIHAELA Administration Ceftriaxone Sodium/Dextrose 1 g in 50 mls @ 100 mls/hr 05/07/20 10:00 05/13/20 11:05 Rocephin 1 Gm-D5w 50 Ml Bag IV 06/06/20 09:59 100 mls/hr Q24H10 MIHAELA Administration Vancomycin HCl 1.5 gm in 300 mls @ 167 mls/hr 05/07/20 08:00 05/14/20 07:58 Vancomycin 1.5 Gram/300 Ml Bag IV 06/06/20 07:59 167 mls/hr Q12H MIHAELA Administration Metronidazole 500 mg in 100 mls @ 200 mls/hr 05/07/20 12:00 05/14/20 06:30 Flagyl 500 Mg Ivpb IV 06/06/20 11:59 200 mls/hr Q6HT MIHAELA Administration Sodium Chloride 1,000 mls @ 50 mls/hr 05/12/20 09:00 Sodium Chloride 0.9% 1000 Ml IV 06/11/20 08:59 .Q20H MIHAELA Multi-Ingredient Ointment 0.5 gm 05/07/20 03:52 Zinc Oxide Ointment 30 Gm TP 06/06/20 03:51 Q8H PRN REDNESS/IRRITATION Ondansetron HCl 4 mg 05/06/20 23:02 Zofran 4 Mg/2 Ml Vial IV 06/05/20 23:01 Q6H PRN PRN NAUSEA/VOMITING Potassium Chloride 20 meq 05/12/20 10:00 05/13/20 10:59 Klor Con 10 Meq PO 06/11/20 09:59 20 meq DAILY MIHAELA Administration Discontinued Medications Generic Name Dose Route Start Last Admin Trade Name Freq PRN Reason Stop Dose Admin Device 1 05/08/20 07:30 05/08/20 10:37 Trough Drug Levels IJ 05/08/20 07:31 1 1XONLY ONE Administration Device 1 05/10/20 07:00 05/10/20 07:29 Trough Drug Levels IJ 05/10/20 07:01 1 1XONLY ONE Administration Hydromorphone HCl 0.5 mg 05/06/20 22:39 05/06/20 22:43 Hydromorphone 1 Mg/Ml Injection IV 05/06/20 22:40 0.5 mg STAT ONE Administration Hydromorphone HCl Confirm 05/06/20 22:41 Hydromorphone 1 Mg/Ml Injection Administered 05/06/20 22:42 Dose 1 mg .ROUTE .STK-MED ONE Hydromorphone HCl 0.5 mg 05/07/20 03:51 05/09/20 08:00 Hydromorphone 1 Mg/Ml Injection IV 05/12/20 03:50 0.5 mg Q4H PRN PRN Administration PAIN Sodium Chloride 1,000 mls @ 999 mls/hr 05/06/20 19:45 05/06/20 22:23 Sodium Chloride 0.9% 1000 Ml IV 05/06/20 20:45 Infused .Q1H1M STA Infusion Sodium Chloride Confirm 05/06/20 19:50 Sodium Chloride 0.9% 1000 Ml Administered 05/06/20 19:51 Dose 1,000 mls @ ud .ROUTE .STK-MED ONE Vancomycin HCl 1 gm in 200 mls @ 125 mls/hr 05/06/20 20:48 05/06/20 20:53 Vancomycin 1 Gram/200 Ml Bag IV 05/06/20 22:23 125 ml/hr STAT ONE 125 mls/hr Administration Vancomycin HCl Confirm 05/06/20 20:50 Vancomycin 1 Gram/200 Ml Bag Administered 05/06/20 20:51 Dose 1 gm in 200 mls @ ud IV .STK-MED ONE Sodium Chloride 1,000 mls @ 999 mls/hr 05/06/20 22:36 05/06/20 22:43 Sodium Chloride 0.9% 1000 Ml IV 05/06/20 23:36 999 mls/hr .Q1H1M STA Administration Sodium Chloride Confirm 05/06/20 22:41 Sodium Chloride 0.9% 1000 Ml Administered 05/06/20 22:42 Dose 1,000 mls @ ud .ROUTE .STK-MED ONE Vancomycin HCl 1 gm in 200 mls @ 125 mls/hr 05/06/20 23:02 05/07/20 01:10 Vancomycin 1 Gram/200 Ml Bag IV 05/07/20 00:37 125 mls/hr Q12H MIHAELA Administration Potassium Chloride 20 meq in 100 mls @ 50 mls/hr 05/08/20 06:19 05/08/20 06:24 Potassium Chloride 20 Meq In Water 100ml IV 05/08/20 08:18 50 mls/hr STAT ONE Administration Potassium Chloride 20 meq in 100 mls @ 50 mls/hr 05/09/20 06:08 05/09/20 06:21 Potassium Chloride 20 Meq In Water 100ml IV 05/09/20 08:07 50 mls/hr STAT ONE Administration Potassium Chloride 20 meq in 100 mls @ 50 mls/hr 05/10/20 08:45 05/10/20 11:04 Potassium Chloride 20 Meq In Water 100ml IV 05/10/20 12:44 50 mls/hr Q2H MIHAELA Administration Potassium Chloride 20 meq in 100 mls @ 50 mls/hr 05/11/20 07:00 05/11/20 07:41 Potassium Chloride 20 Meq In Water 100ml IV 05/11/20 08:59 50 mls/hr STAT ONE Administration Non-Formulary Medication 1 each 05/07/20 07:45 05/07/20 09:42 Pharmacy Dosing Required: Vancomycin MC 05/07/20 07:46 1 each NOW ONE Administration Ondansetron HCl 4 mg 05/06/20 19:45 05/06/20 19:52 Zofran 4 Mg/2 Ml Vial IV 05/06/20 19:46 4 mg STAT STA Administration Ondansetron HCl Confirm 05/06/20 19:50 Zofran 4 Mg/2 Ml Vial Administered 05/06/20 19:51 Dose 4 mg .ROUTE .STK-MED ONE Potassium Chloride 20 meq 05/08/20 06:19 05/08/20 06:24 Klor Con 10 Meq PO 05/08/20 06:20 20 meq STAT ONE Administration Potassium Chloride 20 meq 05/09/20 06:06 05/09/20 06:21 Klor Con 10 Meq PO 05/09/20 06:07 20 meq STAT ONE Administration Potassium Chloride 40 meq 05/11/20 07:00 05/11/20 07:42 Klor Con 10 Meq PO 05/11/20 07:01 40 meq ONCE ONE Administration Intake & Output (Last 24 hours) 05/11/20 05/12/20 05/13/20 05/14/20 11:59 11:59 11:59 11:59 Intake Total 4272 3964 4773 2982 Output Total 6700 2850 2950 2300 Balance -2428 1114 1823 682 Weight 91.8 kg 92.3 kg 92.7 kg 93 kg Orders (Last 24 hours) Category Date Time Status Activity [Up With Assistance] TID Activity 05/14/20 07:28 Active Patient Care Notes (Last 24 hours) 05/14/20 06:56 Nursing Note by Joanne Awan rounded with Dr Palma. He states he wants the patient up and moving more today. Initialized on 05/14/20 06:56 - END OF NOTE 05/14/20 06:42 Nursing Note by Joanne Awan NUCLEAR RADIOLOGIST not showing up on MAR unable to document: Complete: 5 partial:0 Denied: 3 total: 1 mg Patient sleeping at this time. no apparent distress noted. Initialized on 05/14/20 06:42 - END OF NOTE 05/14/20 05:20 Nursing Note by Joanne Awan patient up to [facility]. patient had medium sized foul smelling BM brown/green in color. the BM was mostly soft/formed with slight diarrhea. patient complained of a lot of pain while transfering and used NUCLEAR RADIOLOGIST to help with pain. Initialized on 05/14/20 05:20 - END OF NOTE 05/13/20 19:22 Nursing Note by Parker,Loni J unable to chart server administrator in MAR completed doses:12 partial: 0 denied:0 Total given: 2.4 mg Initialized on 05/13/20 19:22 - END OF NOTE Code(s): A04.72 - ENTEROCOLITIS D/T CLOSTRIDIUM DIFFICILE, NOT SPCF RECUR (2) Gastroenteritis Current Visit: Yes Status: Resolved Code(s): K52.9 - NONINFECTIVE GASTROENTERITIS AND COLITIS, UNSPECIFIED
[2020-05-14] MEDS: ENOXAPARIN SODIUM SQ SCH ×2 (10:08→20:50)
[2020-05-14] MEDS: Klor Con 10 MEQ PO SCH (10:08)
[2020-05-14] MEDS: ROCEPHIN 1 Gm-D5w 50 ml Bag** 1 G/50 ML IVPB IV SCH (10:08)
[2020-05-14] MEDS: DILAUDID 1 MG/1ML PCA IV PRN (13:32)
[2020-05-14] MEDS: NORCO 5/325 MG PO PRN ×2 (15:36→20:50)
[2020-05-15] MEDS: NORCO 5/325 MG PO PRN ×5 (03:44→22:51)
[2020-05-15] MEDS: FLAGYL 500 MG IVPB 500 MG/100 ML BAG IV SCH ×3 (06:05→17:04)
[2020-05-15] MEDS: VANCOMYCIN 1.5 GRAM/300 ML BAG 1.5 GM/300 ML PIGGYBACK IV SCH ×2 (09:07→20:26)
[2020-05-15] MEDS: Klor Con 10 MEQ PO SCH (09:07)
[2020-05-15] MEDS: ENOXAPARIN SODIUM SQ SCH ×2 (09:07→20:26)
[2020-05-15] MEDS: ROCEPHIN 1 Gm-D5w 50 ml Bag** 1 G/50 ML IVPB IV SCH (09:07)
[2020-05-16] MEDS: FLAGYL 500 MG IVPB 500 MG/100 ML BAG IV SCH ×2 (00:01→05:42)
[2020-05-16] MEDS: NORCO 5/325 MG PO PRN ×2 (03:41→07:46)
[2020-05-16 07:35] VITALS: O2SAT 98
[2020-05-16] MEDS: VANCOMYCIN 1.5 GRAM/300 ML BAG 1.5 GM/300 ML PIGGYBACK IV SCH (07:46)
--- NOTE | 2020-05-16 08:33 | PCM.DS ---
Discharge Summary Date of Admission: 05/06/20 22:47 Date of Discharge: 05/16/2020 Admitting Physician: LAURA SKY Primary Care Provider: NO FAMILY DOCTOR Allergies Allergies tramadol Adverse Reaction (Unknown, Verified 05/06/20 19:27) "I DON'T LIKE IT" Hospital Summary - Hospital Course Hospital Course: Pt. admitted with markedly elevated wbc, pain and cellulitis in the left thigh/groin. Pt. was started on antibiotics and gradually improved with decreased swelling and redness in the thigh until the patient labs returned to normal levels and patient felt she was stable/ready for discharge. - Vitals & Intake/Output Vital Signs: Vital Signs Temperature 97.9 F 05/16/20 07:00 Pulse Rate 67 05/16/20 07:00 Respiratory Rate 20 05/16/20 07:00 Blood Pressure 114/70 05/16/20 07:00 O2 Sat by Pulse Oximetry 98 05/16/20 07:00 Intake & Output: Intake & Output 05/13/20 05/14/20 05/15/20 05/16/20 11:59 11:59 11:59 11:59 Intake Total 4773 2982 2943 2782 Output Total 2950 2300 2950 500 Balance 1823 682 -7 2282 Weight 92.7 kg 93 kg 90.8 kg 91.2 kg - Lab Result Diagrams: 05/12/20 05:12 05/12/20 05:00 Micro Results-Entire Visit: Microbiology 05/06/20 20:50 Blood Culture Gram Stain - Final Blood Not Reportable Blood Culture - Final NO GROWTH 05/06/20 20:08 Blood Culture Gram Stain - Final Blood Not Reportable Blood Culture - Final NO GROWTH 05/06/20 21:21 Wound Culture - Final Leg - Left Methicillin Resist Staph Aur 05/06/20 21:24 Urine Culture - Final Urine, Catheterized NO GROWTH - Procedures and Test Procedures and Tests throughout Hospitalization: Therapy Orders & Screens 05/07/20 10:34 Oxygen NASAL CANNULA 2 lpm Comment: Diagnosis: Sepsis/Cellulitis 05/15/20 08:21 PT Eval & Treat ( Order) ONCE Reason for Eval:: WANTS TO SEND HOME TOMORROW. SEE HOW SHE GETS UP AND HOW SHE MOVES. Diagnosis: Sepsis/Cellulitis Discharge Exam General Appearance: no apparent distress, alert Neurologic Exam: alert, oriented x 3, cooperative, normal mood/affect, nml cerebellar function, sensation nml, No motor deficits Eye Exam: PERRL, EOMI, eyes nml inspection Ears, Nose, Throat Exam: normal ENT inspection Neck Exam: normal inspection, non-tender, supple Respiratory Exam: normal breath sounds, lungs clear, No respiratory distress Cardiovascular Exam: regular rate/rhythm, normal heart sounds Gastrointestinal/Abdomen Exam: soft, No tenderness, No mass Pelvic Exam: deferred Rectal Exam: deferred Back Exam: normal inspection, No CVA tenderness, No vertebral tenderness Extremity Exam: normal inspection, normal range of motion Skin Exam: normal color (mild erythema remains with reactive lymph nodes still present in the thigh and groin region), warm, dry Wound Assessment: Skin/Wound Assessment Wound/Incision Assessment Start: 05/06/20 23:00 Text: Status: Active Freq: Q6H Protocol: Document 05/16/20 08:00 BATOOL (Rec: 05/16/20 08:02 [id number]) Wound/Incision Assessment Posterior Back Wound Assessment Shift Assessment Wound Stage Non Pressure Wound Drainage Amount None Drainage Odor None/Absent General Appearance Open to air Comment SCABBED AREAS, OPEN TO AIR Left Arm Wound Assessment Shift Assessment Wound Type CELLULITIS Wound Stage Non Pressure Wound Drainage Amount None General Appearance Open to air,Reddened Surrounding Tissue Bright Red,Edematous Comment LEFT AXILLA Left Upper Medial Thigh Wound Assessment Shift Assessment Wound Type CELLULITIS Wound Stage Non Pressure Wound Drainage Amount Minimal Drainage Odor None/Absent General Appearance Open to air Surrounding Tissue [place],Edematous Comment RED AND WARM TO THE TOUCH, NODULES CAN BE FELT, VERY PAINFUL, BARRIER CREAM APPLIED Wound Photo Photo Taken No Final Diagnosis/Problem List - Final Discharge Diagnosis/Problem (1) C. difficile enteritis Current Visit: Yes Status: Acute Assessment & Plan: D/C to home with 7 more days of flagyl 500mg 1 po tid Code(s): A04.72 - ENTEROCOLITIS D/T CLOSTRIDIUM DIFFICILE, NOT SPCF RECUR (2) Cellulitis Current Visit: Yes Status: Acute Assessment & Plan: Will dc with rx for lortab 5 qid prn #28, and bactrim ds 1 po bid for 10 days, pt. also will have a wheel walker for aid in ambulation Code(s): L03.90 - CELLULITIS, UNSPECIFIED - Discharge Discharge Date: 05/16/20 Disposition: Home, Self-Care Condition: Stable Prescriptions: No Action No Reportable Medications [No Reported Medications] Follow up with: LAURA SKY [ACTIVE STAFF] - 05/23/20 10:45 am
[2020-05-16] MEDS: ENOXAPARIN SODIUM SQ SCH (11:40)
[2020-05-16] MEDS: Klor Con 10 MEQ PO SCH (11:41)
[2020-05-16] MEDS: ROCEPHIN 1 Gm-D5w 50 ml Bag** 1 G/50 ML IVPB IV SCH (11:41)
[2020-05-16 11:55] VITALS: BP 120/68; PULSE 62
== END 2020-05-16 12:13 | disposition home or self-care (01) | DRG 372 ==
LOC: ED 19:22 → MED SURG 22:47
PROVIDERS: ADMIT Family Medicine; ATTEND Family Medicine
DX: A04.72 Enterocolitis due to Clostridium difficile, not specified as recurrent (principal); L03.116 Cellulitis of left lower limb; L03.114 Cellulitis of left upper limb
CPT/HCPCS: 0097U; 36000; 36415; 72193; 73701; 80048; 80053; 80202; 80307; 81001; 83605; 84132; 84145; 85025; 85027; 87040; 87070; 87077; 87086; 87186; 90686; 94760; 94762; 96360; 96374; 96375; 99285; 99291; G0008; J0696; J1170; J1650; J2405; J3480; P9612; A9270-GY; J3370

== ENCOUNTER 2020-07-27 10:41 | Emergency (ER) | payer OTHER ==
[2020-07-27] MEDS ORDERED: XYLOCAINE 2% HCL 20 ML MDV ONE (11:05)
--- NOTE | 2020-07-27 11:27 | ERPHSYRPT ---
- History of Present Illness Time Seen by Provider: 07/27/20 10:50 Source: patient Exam Limitations: no limitations Patient Subjective Stated Complaint: Abscess to right axilla Triage Nursing Assessment: Patient ambulated back to ED and transferred self to bed. Patient A+O X 3. Patient's skin pink, warm and dry. Patient complains of abscess to left axilla for one week. Patient has abscess noted to left axilla. Patient complains of constant aching pain 8/10. Physician History: Patient is a 40-year-old female presents to our ED for evaluation of a progressive left axillary abscess. Patient has a history of abscesses. Patient is unsure if she has MRSA. However patient states that she was previously on Bactrim but this medication made her sick. Patient's pain is described as ache that is localized. No radiation. Patient is progressive. Pain worse with movement and palpation. Pain improved with rest. No associated fever. No upper extremity numbness tingling or weakness. No nausea or vomiting. No chest pain or shortness of breath. Symptoms are mild to moderate in intensity. Patient voices no other complaints or concerns at this time. Timing/Duration: week(s) Severity: moderate Modifying Factors: Improves With: movement Associated Symptoms: denies symptoms Allergies/Adverse Reactions: tramadol Adverse Reaction (Unknown, Verified 07/27/20 10:45) "I DON'T LIKE IT" Hx Tetanus, Diphtheria Vaccination/Date Given: Yes Hx Influenza Vaccination/Date Given: No Hx Pneumococcal Vaccination/Date Given: No Immunizations Up to Date: Yes Travel Risk - International Travel Have you traveled outside of the country in past 3 weeks: No - Coronavirus Screening Are you exhibiting any of the following symptoms?: No Close contact with a COVID-19 positive Pt in past 14-21 Days: No - Review of Systems Constitutional: No Symptoms, No Fever, No Chills Eyes: No Symptoms Ears, Nose, & Throat: No Symptoms Respiratory: No Symptoms, No Cough, No Dyspnea Cardiac: No Symptoms, No Chest Pain, No Edema, No Syncope Abdominal/Gastrointestinal: No Symptoms, No Abdominal Pain, No Nausea, No Vo miting, No Diarrhea Genitourinary Symptoms: No Symptoms, No Dysuria Musculoskeletal: No Symptoms, No Back Pain, No Neck Pain Skin: No Symptoms, No Rash Neurological: No Symptoms, No Dizziness, No Focal Weakness, No Sensory Changes Psychological: No Symptoms Endocrine: No Symptoms Hematologic/Lymphatic: No Symptoms Immunological/Allergic: No Symptoms All Other Systems: Reviewed and Negative - Past Medical History Pertinent Past Medical History: Yes Neurological History: No Pertinent History ENT History: No Pertinent History Cardiac History: Arrhythmia Respiratory History: Pneumonia Endocrine Medical History: No Pertinent History Musculoskeletal History: No Pertinent History GI Medical History: No Pertinent History History: No Pertinent History Psycho-Social History: Anxiety Female Reproductive Disorders: No Pertinent History Other Medical History: PT STATES THAT SHE IS SUPPOSED TO SEE A GI SPECIALIST BERFORE THE COVID IN AUGUST HAS NOT BEEN SEEN IN REGARDS TO HER NEW FOUND GI PROBLEMS PT THOUGHT THAT SHE WAS HAVING THE FLU WITH [facility] AND WAS TESTED BUT DIDN'T HAVE THE FLU BUT PT IS GOING TO BE CALLING TO HOPFULLY GET TO SEE THE GI SPECIALIST. PT FEELS THAT SHE HAS CROHNS DISEASE - Past Surgical History Past Surgical History: Yes Neuro Surgical History: No Pertinent History Cardiac: No Pertinent History Respiratory: No Pertinent History Gastrointestinal: No Pertinent History Musculoskeletal: No Pertinent History Female Surgical History: Tubal Ligation Other Surgical History: TUBES IN EARS AND TUBAL. MENIGITIS 2005. BLOOD TRANSFUSION 2005 - Social History Smoking Status: Current every day smoker How long have you smoked: unable Exposure to second hand smoke: No Drug Use: methamphetamines Patient Lives Alone: No (Group Home) - Female History Hx Last Menstrual Period: Currently Hx Now: No - Nursing Vital Signs Nursing Vital Signs: Initial Vital Signs Temperature 98.1 F 07/27/20 10:48 Pulse Rate 76 07/27/20 10:48 Respiratory Rate 18 07/27/20 10:48 Blood Pressure 99/48 07/27/20 10:48 O2 Sat by Pulse Oximetry 100 07/27/20 10:48 Pain Scale Pain Intensity 8 - Physical Exam General Appearance: no apparent distress, alert Eye Exam: PERRL/EOMI, eyes nml inspection Ears, Nose, Throat Exam: normal ENT inspection, TMs normal, pharynx normal, moist mucous membranes Neck Exam: normal inspection, non-tender, supple, full range of motion Respiratory Exam: normal breath sounds, lungs clear, No respiratory distress Cardiovascular Exam: regular rate/rhythm, normal heart sounds, normal peripheral pulses Gastrointestinal/Abdomen Exam: soft, normal bowel sounds, No tenderness, No mass Back Exam: normal inspection, normal range of motion, No CVA tenderness, No vertebral tenderness Extremity Exam: normal inspection, normal range of motion, pelvis stable, other (Left axillary fluctuant abscess with superimposed cellulitis. No palpable lymphadenopathy or lymphangitis.) Neurologic Exam: alert, oriented x 3, cooperative, normal mood/affect, nml cerebellar function, nml station & gait, sensation nml, No motor deficits Skin Exam: normal color, warm, dry, No rash Lymphatic Exam: No adenopathy SpO2 Interpretation: normal SpO2: 100 O2 Delivery: Room Air Procedures - Incision and Drainage Site: Left axilla Anesthesia: 2% Lidocaine cc's of anesthesia: 4 Blade Size: 10 I & D Procedure: betadine prep Results: large amount pus Progress: Patient neurovascularly intact distally post procedure. Wound loculations were disrupted using a needle electric pile driver operator. Wound cultures obtained. Wound was packed with 1 inch iodoform packing. Sterile bulky dressing applied. - Course Nursing assessment & vital signs reviewed: Yes Ordered Tests: Active Orders 24 hr Category Date Time Status CULTURE,WOUND Stat Lab 07/27/20 Ordered Medication Summary Discontinued Medications Generic Name Dose Route Start Last Admin Trade Name Bert PRN Reason Stop Dose Admin Lidocaine HCl Confirm 07/27/20 11:05 Xylocaine 2% Hcl 20 Ml Mdv Administered 07/27/20 11:06 Dose 5 ml .ROUTE .STK-MED ONE - Progress Progress: improved Progress Note: 07/27/20 11:35 Patient reassessed. She feels well. Patient experienced immediate relief upon drainage of abscess. Wound was cultured and packed. Bulky dressing applied. Bulky dressing will remain intact for 48 hours. Patient given a prescription of clindamycin due to superimposed cellulitis. No indication for further work-up at this time. Will discharge. Patient voices no other complaints concerns. Counseled pt/family regarding: diagnosis, need for follow-up - Departure Departure Disposition: Home Clinical Impression: Abscess, Cellulitis Condition: Stable Critical Care Time: No Instructions: MRSA (DC), Wound Infection Prescriptions: Clindamycin HCl 150 mg [Cleocin 150 mg Capsule] 2 cap PO QID #56 capsule
[2020-07-27] MEDS ORDERED: CLEOCIN 150 MG CAPSULE ONE (11:40)
[2020-07-27] MEDS ORDERED: CLEOCIN 150 MG CAPSULE PO ONE (11:40)
[2020-07-27 11:50] VITALS: BP 103/84; PULSE 73; O2SAT 97
== END 2020-07-27 11:53 | disposition home or self-care (01) ==
LOC: ED 10:41
DX: L02.412 Cutaneous abscess of left axilla (principal); L03.90 Cellulitis, unspecified; F17.210 Nicotine dependence, cigarettes, uncomplicated
CPT/HCPCS: 10060; 87070; 87077; 87186; 99283; A9270-GY

== ENCOUNTER 2021-09-23 15:48 | Emergency (ER) | payer OTHER ==
--- NOTE | 2021-09-23 16:09 | ERPHSYRPT ---
- History of Present Illness Time Seen by Provider: 09/23/21 16:05 Source: patient Exam Limitations: no limitations Patient Subjective Stated Complaint: Pt c/o of left shoulder pain Triage Nursing Assessment: Pt was brought here by her boyfriend, luanne bolaños, rates pain as 10/10, left shoulder painful with palpatation, pain with use of hand, denies any injury, has been cutting and throwing wood for the past couple of days, denies any hx of injury to shoulder, skin n/w/d, pulses normal Physician History: Patient is a 41-year-old female who presents with a complaint of severe 10 of 10 pain in the left shoulder with any movement of the left shoulder. She has been cutting and chopping and throwing wood for several days. She denies any injury. She does note that rolling over on her left shoulder causes her to wake from sleep. She is a consequence has not been sleeping well Occurred: days ago (2) Method of Injury: unknown Quality: constant, throbbing Severity of Pain-Max: severe Severity of Pain-Current: severe Extremities Pain Location: shoulder: left (Pain to palpation of the anterior left shoulder and over the olecranon area in addition there is extreme pain with any movement.) Modifying Factors: Improves With: movement Associated Symptoms: none Allergies/Adverse Reactions: tramadol Adverse Reaction (Unknown, Verified 09/23/21 16:04) "I DON'T LIKE IT" sulfamethoxazole [From Bactrim] Adverse Reaction (Verified 09/23/21 16:04) Makes her sick trimethoprim [From Bactrim] Adverse Reaction (Verified 09/23/21 16:04) Makes her sick Hx Tetanus, Diphtheria Vaccination/Date Given: Yes Hx Influenza Vaccination/Date Given: No Hx Pneumococcal Vaccination/Date Given: No Travel Risk - International Travel Have you traveled outside of the country in past 3 weeks: No - Coronavirus Screening Are you exhibiting any of the following symptoms?: No Close contact with a COVID-19 positive Pt in past 14-21 Days: No - Vaccine Status Have you recieved a Covid-19 vaccination: No - Review of Systems Constitutional: No Fever, No Chills Eyes: No Symptoms Ears, Nose, & Throat: No Symptoms Respiratory: No Cough, No Dyspnea Cardiac: No Chest Pain, No Edema, No Syncope Abdominal/Gastrointestinal: No Abdominal Pain, No Nausea, No Vomiting, No Diarrhea Genitourinary Symptoms: No Dysuria Musculoskeletal: Joint Pain, No Back Pain, No Neck Pain Skin: No Rash Neurological: No Dizziness, No Focal Weakness, No Sensory Changes Psychological: No Symptoms Endocrine: No Symptoms All Other Systems: Reviewed and Negative - Past Medical History Pertinent Past Medical History: Yes Neurological History: No Pertinent History ENT History: No Pertinent History Cardiac History: Arrhythmia Respiratory History: Pneumonia Endocrine Medical History: No Pertinent History Musculoskeletal History: No Pertinent History GI Medical History: No Pertinent History History: No Pertinent History Psycho-Social History: Anxiety Female Reproductive Disorders: No Pertinent History Other Medical History: PT STATES THAT SHE IS SUPPOSED TO SEE A GI SPECIALIST BERFORE THE COVID IN AUGUST HAS NOT BEEN SEEN IN REGARDS TO HER NEW FOUND GI PROBLEMS PT THOUGHT THAT SHE WAS HAVING THE FLU WITH [facility] AND WAS TESTED BUT DIDN'T HAVE THE FLU BUT PT IS GOING TO BE CALLING TO HOPFULLY GET TO SEE THE GI SPECIALIST. PT FEELS THAT SHE HAS CROHNS DISEASE - Past Surgical History Past Surgical History: Yes Neuro Surgical History: No Pertinent History Cardiac: No Pertinent History Respiratory: No Pertinent History Gastrointestinal: No Pertinent History Musculoskeletal: No Pertinent History Female Surgical History: Tubal Ligation Other Surgical History: TUBES IN EARS AND TUBAL. MENIGITIS 2005. BLOOD TRANSFUSION 2005 - Social History Smoking Status: Current every day smoker How long have you smoked: unable Exposure to second hand smoke: Yes Drug Use: none Patient Lives Alone: No - Female History Hx Now: No - Nursing Vital Signs Nursing Vital Signs: Initial Vital Signs Temperature 98.0 F 09/23/21 15:56 Pulse Rate 84 09/23/21 15:56 Blood Pressure 137/80 09/23/21 15:56 O2 Sat by Pulse Oximetry 99 09/23/21 15:56 Pain Scale Pain Intensity 10 - Physical Exam General Appearance: moderate distress, alert Eyes, Ears, Nose, Throat Exam: moist mucous membranes Neck Exam: non-tender, supple Cardiovascular/Respiratory Exam: chest non-tender, normal breath sounds, regular rate/rhythm, no respiratory distress Abdominal Exam: non-tender, No guarding Back Exam: normal inspection, No vertebral tenderness Shoulder Exam: bone tenderness, limited ROM, pain, soft tissue tenderness Elbow/Forearm Exam: normal inspection, non-tender, no evidence of injury Wrist Exam: normal inspection, non-tender, no evidence of injury Hand Exam: normal inspection, non-tender, no evidence of injury Neuro/Tendon Exam: normal sensation, normal motor functions Mental Status Exam: alert, oriented x 3, cooperative Skin Exam: normal color, warm, dry SpO2 Interpretation: normal SpO2: 99 O2 Delivery: Room Air - Course Nursing assessment & vital signs reviewed: Yes - Radiology Exams Shoulder X-ray Interpretation: Interpreted by me, Negative Ordered Tests: Active Orders 24 hr Category Date Time Status SHOULDER Stat Exams 09/23/21 16:04 Taken - Progress Progress: unchanged - Departure Departure Disposition: Home Clinical Impression: Subacromial bursitis of left shoulder joint Condition: Stable Critical Care Time: No Referrals: LAURA SKY MD [Primary Care Provider] - Follow up/PCP as directed Instructions: Shoulder Tendinopathy (DC) Prescriptions: Hydrocodone/Acetaminophen [Hydrocodone-Acetamin 10-325 mg] 1 tablet PO Q4H PRN PRN 3 Days #18 tablet MDD 6 PRN Reason: Pain Prednisone 10 mg [Deltasone 10 mg] 20 mg PO TID #30 tablet
[2021-09-23] MEDS ORDERED: Hydromorphone 1 mg/ml Injection IM ONE (16:30)
[2021-09-23] MEDS ORDERED: TORAdol 30 mg Injection IM ONE (16:31)
[2021-09-23] MEDS ORDERED: Hydromorphone 1 mg/ml Injection ONE (16:33)
[2021-09-23] MEDS ORDERED: TORAdol 30 mg Injection ONE (16:33)
[2021-09-23 16:58] VITALS: BP 143/81; PULSE 100; O2SAT 97
--- NOTE | 2021-09-23 20:13 | XRAY ---
Indication: Injury chopping wood. Comparison: None 3 view left shoulder obtained. Suboptimal scapular Y view. No bony, articular, or soft tissue abnormalities.
== END 2021-09-23 16:58 | disposition home or self-care (01) ==
LOC: ED 15:48
DX: M70.812 Other soft tissue disorders related to use, overuse and pressure, left shoulder (principal); M75.52 Bursitis of left shoulder; M25.512 Pain in left shoulder; Z72.0 Tobacco use; Z79.891 Long term (current) use of opiate analgesic; Z79.52 Long term (current) use of systemic steroids
CPT/HCPCS: 73030; 96372; 99284; J1170; J1885

== ENCOUNTER 2022-03-11 21:17 | Emergency (ER) | payer OTHER ==
[2022-03-11] MEDS ORDERED: BABY ASPIRIN 81 MG CHEW PO ONE (21:27)
[2022-03-11] MEDS ORDERED: BABY ASPIRIN 81 MG CHEW ONE (21:30)
--- NOTE | 2022-03-11 21:41 | ERPHSYRPT ---
- History of Present Illness Time Seen by Provider: 03/11/22 21:30 Historian: patient, police Exam Limitations: no limitations Patient Subjective Stated Complaint: chest pain which occured around 10-11 am Triage Nursing Assessment: pt arrived to ER via hospital security officer, c/o chest pain off and on all day, which started between 10 and 11am. Physician History: This is an overweight 41-year-old white female patient of Dr. Sky who is currently a resident at the local skilled nursing and has a history of hypertension but no history of coronary artery disease. Patient presents with intermittent substernal, central chest pain with radiation up into her neck and bilateral shoulders. It began at 10 AM. Patient has not had a fever. She denies cough. She denies shortness of breath. Timing/Duration: today Activities at Onset: none Quality: sharpness Location: substernal, central Chest Pain Radiation: neck, arm Severity of Pain-Max: moderate Severity of Pain-Current: mild Modifying Factors: Improves With: nothing Associated Symptoms: denies symptoms Nitro Today/Relief: no nitro taken today Aspirin Treatment Today: 81 mg x 4, provided by ED Allergies/Adverse Reactions: tramadol Adverse Reaction (Unknown, Verified 03/11/22 21:32) "I DON'T LIKE IT" sulfamethoxazole [From Bactrim] Adverse Reaction (Verified 03/11/22 21:32) Makes her sick trimethoprim [From Bactrim] Adverse Reaction (Verified 03/11/22 21:32) Makes her sick Home Medications: Hctz/Triamterene 25/37.5 mg [Maxzide 25MG] 1 tab PO DAILY 03/11/22 [History] Ibuprofen 600 mg PO BID 03/11/22 [History] PARoxetine HCl [Paxil] 20 mg PO DAILY 03/11/22 [History] Hx Tetanus, Diphtheria Vaccination/Date Given: Yes Hx Influenza Vaccination/Date Given: No Hx Pneumococcal Vaccination/Date Given: No Immunizations Up to Date: Yes Travel Risk - International Travel Have you traveled outside of the country in past 3 weeks: No - Coronavirus Screening Are you exhibiting any of the following symptoms?: No Close contact with a COVID-19 positive Pt in past 14-21 Days: No - Vaccine Status Have you recieved a Covid-19 vaccination: No - Review of Systems Constitutional: No Symptoms Eyes: No Symptoms Ears, Nose, & Throat: No Symptoms Respiratory: No Symptoms Cardiac: Chest Pain Abdominal/Gastrointestinal: No Symptoms Genitourinary Symptoms: No Symptoms Musculoskeletal: No Symptoms Skin: No Symptoms Neurological: No Symptoms Psychological: No Symptoms Endocrine: No Symptoms Hematologic/Lymphatic: No Symptoms Immunological/Allergic: No Symptoms All Other Systems: Reviewed and Negative - Past Medical History Pertinent Past Medical History: Yes Neurological History: No Pertinent History ENT History: No Pertinent History Cardiac History: Arrhythmia Respiratory History: Pneumonia Endocrine Medical History: No Pertinent History Musculoskeletal History: No Pertinent History GI Medical History: No Pertinent History History: No Pertinent History Psycho-Social History: Anxiety Female Reproductive Disorders: No Pertinent History Other Medical History: PT STATES THAT SHE IS SUPPOSED TO SEE A GI SPECIALIST BERFORE THE COVID IN AUGUST HAS NOT BEEN SEEN IN REGARDS TO HER NEW FOUND GI PROBLEMS PT THOUGHT THAT SHE WAS HAVING THE FLU WITH [facility] AND WAS TESTED BUT DIDN'T HAVE THE FLU BUT PT IS GOING TO BE CALLING TO HOPFULLY GET TO SEE THE GI SPECIALIST. PT FEELS THAT SHE HAS CROHNS DISEASE - Past Surgical History Past Surgical History: Yes Neuro Surgical History: No Pertinent History Cardiac: No Pertinent History Respiratory: No Pertinent History Gastrointestinal: No Pertinent History Musculoskeletal: No Pertinent History Female Surgical History: Tubal Ligation Other Surgical History: TUBES IN EARS AND TUBAL. MENIGITIS 2005. 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) - Female History Hx Last Menstrual Period: 02/09/22 Hx Now: No - Nursing Vital Signs Nursing Vital Signs: Initial Vital Signs Temperature 97.8 F 03/11/22 21:22 Pulse Rate 78 03/11/22 21:22 Respiratory Rate 18 03/11/22 21:22 Blood Pressure 117/96 03/11/22 21:22 O2 Sat by Pulse Oximetry 97 03/11/22 21:22 Pain Scale Pain Intensity 2 - Physical Exam General Appearance: no apparent distress, alert, anxiety, obese Eye Exam: PERRL/EOMI, eyes nml inspection Ears, Nose, Throat Exam: normal ENT inspection, moist mucous membranes Neck Exam: normal inspection, non-tender, supple, full range of motion Respiratory Exam: normal breath sounds, chest tenderness, lungs clear, airway intact, No respiratory distress Cardiovascular Exam: regular rate/rhythm, normal heart sounds, normal peripheral pulses Gastrointestinal/Abdomen Exam: soft, normal bowel sounds, No tenderness Pelvic Exam: not done Rectal Exam: not done Back Exam: normal inspection, normal range of motion, No CVA tenderness, No vertebral tenderness Extremity Exam: normal inspection, normal range of motion, pelvis stable Neurologic Exam: alert, oriented x 3, cooperative, brusher operator II-XII nml as tested, normal mood/affect, nml cerebellar function, nml station & gait, sensation nml Skin Exam: normal color, warm, dry Lymphatic Exam: No adenopathy SpO2 Interpretation: normal SpO2: 98 O2 Delivery: Room Air - Course Nursing assessment & vital signs reviewed: Yes EKG Interpreted by Me: RATE, Sinus Rhythm (78), NORMAL AXIS, NORMAL INTERVALS, NORMAL QRS, NORMAL ST-T, Other (No acute ischemic changes on today's EKG) Ordered Tests: Active Orders 24 hr Category Date Time Status Gas Plant Dispatcher STAT Care 03/11/22 21:27 Active EKG-ER Only STAT Care 03/11/22 21:27 Active IV Insertion STAT Care 03/11/22 21:27 Active Pulse Oximetry (ED) STAT Care 03/11/22 21:27 Active CHEST 1 VIEW (PORTABLE) Stat Exams 03/11/22 21:27 Taken CHEST WITH CONTRAST [CT] Stat Exams 03/11/22 23:52 Taken CBC W DIFF Stat Lab 03/11/22 22:39 Completed CMP Stat Lab 03/11/22 22:39 Completed D-DIMER QUANTITATIVE Stat Lab 03/11/22 22:39 Completed TROPONIN Q4H Lab 03/11/22 21:30 Completed TROPONIN Q4H Lab 03/12/22 01:50 Received TROPONIN Q4H Lab 03/12/22 05:30 Ordered Medication Summary Discontinued Medications Generic Name Dose Route Start Last Admin Trade Name Freq PRN Reason Stop Dose Admin Aspirin 324 mg 03/11/22 21:27 03/11/22 21:31 Aspirin 81 Mg Tab.Chew PO 03/11/22 21:28 324 mg STAT ONE Administration Aspirin Confirm 03/11/22 21:30 Aspirin 81 Mg Tab.Chew Administered 03/11/22 21:31 Dose 324 mg .ROUTE .STK-MED ONE Sodium Chloride 500 mls @ 500 mls/hr 03/11/22 23:52 03/12/22 00:36 Sodium Chloride 0.9% 500 Ml IV 03/12/22 00:51 500 mls/hr .Q1H ONE Administration Sodium Chloride Confirm 03/12/22 00:33 Sodium Chloride 0.9% 1000 Ml Administered 03/12/22 00:34 Dose 1,000 mls @ ud .ROUTE .STK-MED ONE Sodium Chloride Confirm 03/12/22 00:36 Sodium Chloride 0.9% 500 Ml Administered 03/12/22 00:37 Dose 500 mls @ ud IV .STK-MED ONE Lab/Rad Data: Laboratory Result Diagrams 03/11/22 22:39 03/11/22 22:39 Laboratory Results 03/11/22 03/11/22 03/11/22 Range/Units 22:39 22:39 22:39 WBC 8.4 (4.0-10.5) x10^3/uL RBC 4.32 (4.1-5.4) x10^6/uL Hgb 11.5 L (12.0-16.0) g/dL Hct 36.3 (35-47) % MCV 84.0 (78-100) fL MCH 26.6 (26-32) pg MCHC 31.7 L (32-36) g/dL RDW 14.5 H (11.5-14.0) % Plt Count 284 (150-450) x10^3/uL MPV 8.9 (7.5-11.0) fL Gran % 59.1 (36.0-66.0) % Immature Gran % (Auto) 0.2 (0.00-0.4) % Nucleat RBC Rel Count 0.0 (0.00-0.1) % Eos # (Auto) 0.34 (0-0.5) x10^3/uL Immature Gran # (Auto) 0.02 (0.00-0.03) x10^3u/L Absolute Lymphs (auto) 2.17 (1.0-4.6) x10^3/uL Absolute Monos (auto) 0.84 (0.0-1.3) x10^3/uL Absolute Nucleated RBC 0.00 (0.00-0.01) x10^3u/L Lymphocytes % 25.9 (24.0-44.0) % Monocytes % 10.0 (0.0-12.0) % Eosinophils % 4.1 (0.00-5.0) % Basophils % 0.7 (0.0-0.4) % Absolute Granulocytes 4.96 (1.4-6.9) x10^3/uL Basophils # 0.06 (0-0.4) x10^3/uL D-Dimer 0.59 H (0.0-0.50) mg/L Sodium 136 L (137-145) mmol/L Potassium 3.7 (3.5-5.1) mmol/L Chloride 102 (98-107) mmol/L Carbon Dioxide 27 (22-30) mmol/L Anion Gap 10.0 (5-15) MEQ/L BUN 21 H (7-17) mg/dL Creatinine 0.68 (0.52-1.04) mg/dL Estimated GFR > 60.0 ML/MIN Glucose 112 H (74-106) mg/dL Calcium 8.8 (8.4-10.2) mg/dL Total Bilirubin 0.30 (0.2-1.3) mg/dL AST 57 H (14-36) U/L ALT 83 H (0-35) U/L Alkaline Phosphatase 106 (38-126) U/L Troponin I (0.000-0.034) ng/mL Serum Total Protein 7.5 (6.3-8.2) g/dL Albumin 4.0 (3.5-5.0) g/dL 03/11/22 Range/Units 21:30 WBC (4.0-10.5) x10^3/uL RBC (4.1-5.4) x10^6/uL Hgb (12.0-16.0) g/dL Hct (35-47) % MCV (78-100) fL MCH (26-32) pg MCHC (32-36) g/dL RDW (11.5-14.0) % Plt Count (150-450) x10^3/uL MPV (7.5-11.0) fL Gran % (36.0-66.0) % Immature Gran % (Auto) (0.00-0.4) % Nucleat RBC Rel Count (0.00-0.1) % Eos # (Auto) (0-0.5) x10^3/uL Immature Gran # (Auto) (0.00-0.03) x10^3u/L Absolute Lymphs (auto) (1.0-4.6) x10^3/uL Absolute Monos (auto) (0.0-1.3) x10^3/uL Absolute Nucleated RBC (0.00-0.01) x10^3u/L Lymphocytes % (24.0-44.0) % Monocytes % (0.0-12.0) % Eosinophils % (0.00-5.0) % Basophils % (0.0-0.4) % Absolute Granulocytes (1.4-6.9) x10^3/uL Basophils # (0-0.4) x10^3/uL D-Dimer (0.0-0.50) mg/L Sodium (137-145) mmol/L Potassium (3.5-5.1) mmol/L Chloride (98-107) mmol/L Carbon Dioxide (22-30) mmol/L Anion Gap (5-15) MEQ/L BUN (7-17) mg/dL Creatinine (0.52-1.04) mg/dL Estimated GFR ML/MIN Glucose (74-106) mg/dL Calcium (8.4-10.2) mg/dL Total Bilirubin (0.2-1.3) mg/dL AST (14-36) U/L ALT (0-35) U/L Alkaline Phosphatase (38-126) U/L Troponin I 0.019 (0.000-0.034) ng/mL Serum Total Protein (6.3-8.2) g/dL Albumin (3.5-5.0) g/dL - Progress Progress: improved Air Movement: good Progress Note: 03/12/22 02:00 CTA of the chest is negative for pulmonary embolus. There is evidence of a left thyroid nodule Blood Culture(s) Obtained: No Antibiotics given: No Counseled pt/family regarding: lab results, diagnosis, need for follow-up - Departure Departure Disposition: Home Clinical Impression: Chest pain Condition: Stable Critical Care Time: No Referrals: LAURA SKY MD [Primary Care Provider] - Follow up/PCP as directed Additional Instructions: Take your medications as prescribed. Follow-up with your primary care physician for further evaluation of your chest pain and the left thyroid nodule.
[2022-03-11 23:17] LABS: Absolute Neutrophil Ct (ANC) 4.96 x10^3/uL (1.4-6.9); Basophil (Absolute #) 0.06 x10^3/uL (0-0.4); Eosinophil % 4.1 % (0.00-5.0); Eosinophil (Absolute #) 0.34 x10^3/uL (0-0.5); Hematocrit 36.3 % (35-47); Hemoglobin 11.5 g/dL (12.0-16.0); Lymphocyte (Absolute #) 2.17 x10^3/uL (1.0-4.6); Lymphocytes % 25.9 % (24.0-44.0); Mean Corpuscular Hemoglobin 26.6 pg (26-32); Mean Corpuscular Hgb Concent. 31.7 g/dL (32-36); Mean Platelet Volume 8.9 fL (7.5-11.0); Monocyte (Absolute #) 0.84 x10^3/uL (0.0-1.3); Neutrophil % 59.1 % (36.0-66.0); Platelet Count 284 x10^3/uL (150-450); Red Blood Count 4.32 x10^6/uL (4.1-5.4); Red Cell Distribution Width 14.5 % (11.5-14.0); White Blood Count 8.4 x10^3/uL (4.0-10.5)
[2022-03-11 23:32] LABS: ALKALINE PHOSPHATASE 106 U/L (38-126); BLOOD UREA NITROGEN 21 mg/dL (7-17); CHLORIDE 102 mmol/L (98-107); Calcium 8.8 mg/dL (8.4-10.2); Carbon Dioxide 27 mmol/L (22-30); Creatinine 1 0.68 mg/dL (0.52-1.04); EST GLOMERULAR FILTRATION RATE > 60.0 ML/MIN; Glucose 112 mg/dL (74-106); Potassium 3.7 mmol/L (3.5-5.1); SGOT/AST 57 U/L (14-36); SGPT/ALT 83 U/L (0-35); SODIUM 136 mmol/L (137-145); Total Protein 7.5 g/dL (6.3-8.2)
[2022-03-11] MEDS ORDERED: Sodium Chloride 0.9% 500 ML 500 ML IV ONE (23:52)
[2022-03-12] MEDS ORDERED: Sodium Chloride 0.9% 1000 ML 0 ML ONE (00:33)
[2022-03-12] MEDS ORDERED: Sodium Chloride 0.9% 500 ML 500 ML IV ONE (00:36)
[2022-03-12 02:02] VITALS: O2SAT 98
[2022-03-12 02:12] VITALS: BP 90/58; PULSE 85
--- NOTE | 2022-03-12 08:59 | XRAY ---
Indication: Chest pain. Comparison: September 11, 2019 Portable chest again demonstrates normal heart, lungs, and bony thorax with incidental right base calcified granuloma.
--- NOTE | 2022-03-12 08:59 | XRAY ---
Indication: Chest pain, short of breath, nausea, and left neck/arm pain. Elevated d-dimer. Multiple contiguous axial images obtained through the chest using 100 cc Isovue 370 contrast and PE protocol. Comparison: None Good opacification of the pulmonary arteries. No pulmonary embolus. Heart is not enlarged. Aorta is normal in course and caliber. No pathologic mediastinal/hilar lymphadenopathy. Small hiatal hernia. 1.1 cm left thyroid hypodense nodule/cyst. Lungs demonstrates 2 cm right costophrenic angle calcified granuloma. No suspicious pulmonary mass, infiltrate, effusion, or pneumothorax. Bony thorax intact. Limited upper abdomen demonstrates mild diffuse fatty liver. Impression: 1. Negative pulmonary embolus. No acute cardiopulmonary abnormalities. 2. Incidental small hiatal hernia, left thyroid hypodense nodule/cyst, right lung base calcified granuloma, and fatty liver. Comment: Preliminary interpretation made by [facility]. No critical discrepancy.
== END 2022-03-12 02:15 | disposition home or self-care (01) ==
LOC: ED 21:17 → EEVIPCON 21:17 → ED 03-12 02:15
DX: R07.9 Chest pain, unspecified (principal); I10 Essential (primary) hypertension; Z79.899 Other long term (current) drug therapy; Z28.310 Unvaccinated for COVID-19
CPT/HCPCS: 36000; 36415; 71045; 71260; 80053; 84484; 85025; 85379; 93005; 93041; 94760; 96374; 99284; A9270-GY

== ENCOUNTER 2022-06-23 19:30 | Emergency (ER) | payer OTHER ==
[2022-06-23 19:48] VITALS: BP 126/92; PULSE 99; O2SAT 100
[2022-06-23] MEDS ORDERED: Sodium Chloride 0.9% 1000 ML 1,000 ML IV STA (20:00)
[2022-06-23 20:44] LABS: Group A Strep NOT DETECTED (NEGATIVE)
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
[2022-06-23 20:56] LABS: INFLUENZA A NEGATIVE (NEGATIVE); INFLUENZA B NEGATIVE (NEGATIVE); RESPIRATORY SYNCTIAL VIRUS NEGATIVE (Negative); SARS-CoV-2 Xpert Express NEGATIVE (NEGATIVE)
--- NOTE | 2022-06-24 09:12 | XRAY ---
Indication: Syncope. Possible seizure. Multiple contiguous axial images obtained through the head without contrast. Comparison: November 21, 2016. Normal appearing brain parenchyma, ventricles, and bony calvarium. Visualized paranasal sinuses and mastoid air cells are clear. Impression: Continued normal CT head without contrast exam. Comment: Preliminary interpretation made by [facility]. No critical discrepancy.
--- NOTE | 2022-06-24 09:12 | XRAY ---
Indication: Syncope. Comparison: March 11, 2022 Portable chest again demonstrates normal heart, lungs, and bony thorax with incidental right base calcified granuloma.
== END 2022-06-23 21:18 | disposition home or self-care (01) ==
LOC: ED 19:30
DX: R56.9 Unspecified convulsions (principal); R41.82 Altered mental status, unspecified; Z79.899 Other long term (current) drug therapy; Z28.310 Unvaccinated for COVID-19
CPT/HCPCS: 0241U; 70450; 71045; 87651; 93005; 99283

== ENCOUNTER 2022-09-01 23:21 | Emergency (ER) | payer OTHER ==
[2022-09-01 23:40] VITALS: O2SAT 98
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
[2022-09-02 00:11] VITALS: BP 107/74; PULSE 100
[2022-09-02] MEDS ORDERED: Norflex 60 MG/2 ML IM ONE (00:22)
[2022-09-02] MEDS ORDERED: TORAdol 30 mg Injection IM ONE (00:22)
[2022-09-02] MEDS ORDERED: TORAdol 30 mg Injection ONE (00:25)
[2022-09-02] MEDS ORDERED: Norflex 60 MG/2 ML ONE (00:25)
--- NOTE | 2022-09-02 08:42 | XRAY ---
Indication: Left chest wall injury. Comparison: June 23, 2022 PA/lateral chest again demonstrates normal heart and lungs with incidental right posterior gutter calcified granuloma. Bony thorax intact. No new/acute findings.
== END 2022-09-02 00:41 | disposition home or self-care (01) ==
LOC: ED 23:21
DX: S22.22XA Fracture of body of sternum, initial encounter for closed fracture (principal); S20.214A Contusion of middle front wall of thorax, initial encounter; V18.0XXA Pedal cycle driver injured in noncollision transport accident in nontraffic accident, initial encounter; Z28.310 Unvaccinated for COVID-19; I10 Essential (primary) hypertension; Z72.0 Tobacco use
CPT/HCPCS: 71046; 93005; 96372; 99283; 99291; J1885; J2360

== ENCOUNTER 2022-09-03 20:54 | Emergency (ER) | payer OTHER ==
[2022-09-03 21:06] VITALS: BP 138/94; PULSE 90; O2SAT 97
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
[2022-09-03] MEDS ORDERED: TORAdol 30 mg Injection IM ONE (21:31)
[2022-09-03] MEDS ORDERED: Lidoderm Patch 5% TOP ONE (21:31)
[2022-09-03] MEDS ORDERED: Cyclobenzaprine 10 MG PO ONE (21:32)
[2022-09-03] MEDS ORDERED: Cyclobenzaprine 10 MG ONE (21:40)
[2022-09-03] MEDS ORDERED: TORAdol 30 mg Injection ONE (21:40)
== END 2022-09-03 22:03 | disposition left against medical advice (07) ==
LOC: ED 20:54
DX: R07.9 Chest pain, unspecified (principal); I10 Essential (primary) hypertension; Z28.310 Unvaccinated for COVID-19; Z72.0 Tobacco use
CPT/HCPCS: 96372; 99283; J1885; A9270-GY

== ENCOUNTER 2023-12-03 14:28 | Emergency (ER) | payer SELFPAY ==
[2023-12-03 14:58] VITALS: PULSE 70; RESP 18; TEMP 97
[2023-12-03 15:16] VITALS: O2SAT 98
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
[2023-12-03 16:02] VITALS: BP 89/52
--- NOTE | 2023-12-03 16:29 | XRAY ---
Indication: Head trauma following fall. Loss of consciousness. Multiple contiguous axial images obtained through the head without contrast. Comparison: June 23, 2022 Normal appearing brain parenchyma, ventricles, and bony calvarium. Visualized paranasal sinuses and mastoid air cells are clear. Impression: Continued normal CT head without contrast exam.
--- NOTE | 2023-12-03 16:31 | XRAY ---
Indication: Head trauma following fall. Loss of consciousness. Multiple contiguous axial images obtained through the cervical spine. Sagittal and coronal reformatted images obtained. Comparison: November 21, 2016 Axial images negative for acute fracture, suspicious bony lesions, or spinal canal stenosis. Progressive worsening minimal/mild C5-C7 degenerative endplate spurring. Facets are symmetric. Sagittal and coronal reformatted images again demonstrates lordotic straightening, positional versus paraspinal spasm. Worsening mild C6-C7 and new C5-C6 disc space narrowing. No acute compression fracture, subluxation, or jumped facet. Normal appearing craniocervical junction. Visualized noncontrasted soft tissues including lung apices again demonstrates enlarged left thyroid gland with hypodense nodule/cyst. Impression: 1. Continued negative acute fracture/subluxation. 2. Again cervical lordotic straightening, positional versus paraspinal spasm. 3. Worsening C5-C7 degenerative changes. 4. Stable heterogeneous enlarged left thyroid with hypodense nodule/cyst.
--- NOTE | 2023-12-03 16:33 | XRAY ---
Indication: Pain following fall. Comparison: None 3 view right hand demonstrates 1.4 mm linear soft tissue foreign body thenar eminence. No other bony, articular, or soft tissue abnormalities.
== END 2023-12-03 18:20 | disposition home or self-care (01) ==
LOC: ED 14:28
DX: S09.90XA Unspecified injury of head, initial encounter (principal); S13.4XXA Sprain of ligaments of cervical spine, initial encounter; S60.221A Contusion of right hand, initial encounter; W01.0XXA Fall on same level from slipping, tripping and stumbling without subsequent striking against object, initial encounter; Y93.K1 Activity, walking an animal; M25.521 Pain in right elbow; M25.522 Pain in left elbow; I10 Essential (primary) hypertension; Z72.0 Tobacco use
CPT/HCPCS: 70450; 72125; 73130; 99282